=== PATIENT | male | born 1980 | race Caucasian/White ===

== ENCOUNTER 2022-10-25 15:44 | Outpatient (AMB) | payer OTHER, SELFPAY ==
--- NOTE | 2022-10-25 15:45 | MHC.PC.OV ---
Vital Signs 10/25/22 15:46 Height 6 ft 9 in Weight 306 lb BMI 32.8 BP 126/78 Blood Pressure Location Lt brachial Position Sitting Pulse 88 Pulse Source Pulse Oximeter Temp Source Skin Pulse Oximetry (%) 99 Oxygen Delivery Method Room Air Intake Visit Reasons: New Patient/ Right shoulder surgery/Pain Mngmt [employer] Required: No Allergies No Known Allergies Allergy (Verified 10/25/22 15:58) Medication List - Last Reconciled 10/25/22 by MYNOR Jewell cholecalciferol (vitamin D3) 50 mcg PO DAILY metoprolol succinate ER 25 mg PO DAILY omeprazole 40 mg PO BID Tobacco use date assessed: 10/25/22 Dental Screening Dental Screen Date: 10/25/22 Did you have a dental visit in the last 12 months?: Yes Did you have a dental problem in the last 6 months where you did not have access to dental care?: No Was dental information given to patient?: Patient has dentist HPI New Patient/ Right shoulder surgery/Pain Mngmt HPI Details Patient is a 42-year-old male presents today to establish care. Previous PCP Dr. Triplett in [place], last visit 2 years ago. Patient reports that this doctor does not accept his insurance anymore. Medical history significant for GERD-which is stable with omeprazole 40 mg b.i.d.-reports that when he does not take omeprazole he vomits at the night; atrial fibrillation-followed by Cardiology at [facility]-on metoprolol-not on anticoagulation; nicotine dependence-smokes 1 pack per day since age 17-interested in smoking cessation-reports being on nicotine patch and gum with no improvement in the past-interested in bupropion; bilateral shoulder pain - reports being injured at work doing [employer] - worker's comp case - reports history of right shoulder surgery x2 due to rotator cuff-followed by Orthopedics Dr. Gibbs at [facility] - patient is currently in physical therapy for his right shoulder-reports plan for left shoulder surgery once right shoulder improves. Intermittently take [id number] ibuprofen or Tylenol with some improvement in his pain. Reports he does not like medications. He reports normal upper GI study 3 years ago. Patient lives with his daughter. Patient denies shortness of breath or chest pain. [facility] Medical History (Updated 10/25/22 @ 17:31 by MYNOR Jewell) Kidney stones Surgical History (Updated 10/25/22 @ 17:24 by MYNOR Jewell) H/O shoulder surgery History of appendectomy History of esophagogastroduodenoscopy (EGD) Family History Mother Hypertension CHF (congestive heart failure) Father Stroke Social History Housing: House Patient Tobacco Use Status: Current everyday Tobacco user Cigarette Packs Per Day: 1 Years Smoked: 25 yrs service: Yes 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 ) Cognitive needs: No Hearing needs: No Vision needs: No Questionnaire PHQ-9 Over the last 2 weeks, how often have you been bothered by any of the following problems? 1. Little interest or pleasure in doing things: not at all 2. Feeling down, depressed, or hopeless: not at all 3. Trouble falling or staying asleep, or sleeping too much: not at all 4. Feeling tired or having little energy: not at all 5. Poor appetite or overeating: not at all 6. Feeling bad about yourself - or that you are a failure or have let yourself or your family down: not at all 7. Trouble concentrating on things, such as reading the newspaper or watching television: not at all 8. Moving or speaking so slowly that other people could have noticed. Or the opposite - being so fidgety or restless that you have been moving around a lot more than usual: not at all 9. Thoughts that you would be better off or of hurting yourself in some way: not at all Total score: 0 Depression Screening Interpretation: Negative 13707 - PHQ-9 Billing: Yes Source: Developed by Drs. Michael Kamara, Felicia Asif, Jeffrey Nguyen and colleagues, with an educational darion from [employer]. Thrive Questionnaire Date Thrive assessed: 10/25/22 I am a: Patient What is your living situation today?: I have a steady place to live Within the past 12 months, did the food you bought not last and you didn't have the money to get more?: Never true Within the past 12 months, did you worry whether your food would run out before you got money to buy more?: Never true Do you have trouble paying for medicines?: No Do you have trouble getting transportation to medical appointments?: No Do you have trouble paying your heating and electricity bill?: No Do you have trouble with day-to-day activities such as bathing, preparing meals, shopping, managing finances, etc.?: No Are you currently unemployed and looking for a job?: No Are you interested in more education?: No Currently or been in a relationship where the following occur: no concerns reported AUDIT C Alcohol Use Questionnaire (AUDIT-C) 1. How often do you have a drink containing alcohol?: Never 3. How often do you have six or more drinks on one occasion?: Never Total Score: 0 Score Reviewed/Action Taken: No SHANTE-7 AMB Questionnaire SHANTE-7 Date SHANTE - 7 assessed: 10/25/22 Feeling nervous, anxious, or on edge: 0 = Not at all Not being able to stop or control worryin = Not at all Worrying too much about different things: 0 = Not at all Trouble relaxin = Not at all Being so restless that it is hard to sit still: 0 = Not at all Becoming easily annoyed or irritable: 0 = Not at all Feeling afraid as if something awful might happen: 0 = Not at all Total SHANTE-7 score (0-4 normal; 5-9 mild; 10-14 moderate; 15-21 severe): 0 Source: Developed by Drs. Michael Kamara, Felicia Asif, Jeffrey Nguyen and colleagues, with an educational darion from [employer]. SHANTE-7 Assessment Billing SHANTE-7 Assessment Tool: SHANTE-7 Assessment 09855 Review of Systems Const Denies body aches, Denies chills, Denies fever(s) and Denies headache(s) Eyes Denies change in vision ENT Denies dizziness, Denies otalgia, Denies headache(s), Denies nasal discharge, Denies sinus pain and Denies sore throat Card Denies chest pain, Denies edema, Denies lightheadedness and Denies dyspnea Resp Denies chest congestion, Denies hemoptysis and Denies dyspnea GI Denies abdominal pain, Denies constipation, Reports heartburn, Denies diarrhea, Denies nausea and Denies vomiting Denies dysuria Musc Denies myalgias and Reports arthralgias Skin/Breast Denies rash Neuro Denies dizziness and Denies headache(s) Physical exam (Primary Care) Vital Signs: Last Vital Signs Pulse 88 10/25/22 15:46 BP 126/78 10/25/22 15:46 Pulse Ox 99 10/25/22 15:46 Oxygen Delivery Method Room Air 10/25/22 15:46 BMI result Body Mass Index 32.8 Tobacco/Smoking Status: Tobacco use Status Tobacco use date assessed 10/25/22 10/25/22 15:56 Patient Tobacco Use Status Current everyday Tobacco 10/25/22 15:56 PHQ-9: PHQ-9 Score PHQ-9: Total score 0 10/25/22 16:10 Depression Screening Interpretation: Negative Thrive Assessment: Date of Thrive Assessment Date Thrive assessed 10/25/22 10/25/22 15:56 Currently or been in a relationship where the following occur: no concerns reported Const General: cooperative and no acute distress Orientation/consciousness: patient oriented x3 HENMT Head: Yes normocephalic and Yes atraumatic Ears: TM's normal bilaterally Face and sinus: Yes sinuses nontender Mouth: oropharynx normal and moist mucous membranes Throat: Yes posterior oropharynx normal Eyes General: appearance normal, both eyes and all related structures Pupils: Equal, round and reactive pupils present EOM: EOMs intact bilaterally Neck Neck: Yes normal visual inspection, Yes full ROM and Yes no lymphadenopathy Thyroid: Thyroid normal Resp Effort & Inspection: normal respiratory effort and able to speak in complete sentences Auscultation: clear to auscultation bilaterally, no crackles, no rales, no rhonchi and no wheezes Cardio Rate: regular rate Rhythm: regular rhythm Heart sounds: S1 normal heart sound present, S2 normal heart sound present and no murmurs GI Palpation (GI): Soft to palpation, not firm, nontender, no guarding, not rigid and no hepatosplenomegaly Auscultation: normal bowel sounds General: No CVA tenderness Back/Spine/Pelvis Back: No CVA tenderness Skin General skin exam: no rashes or lesions noted Neuro General: patient oriented x3 Cranial nerves: Yes Equal, round and reactive pupils present Gait exam (Neuro): Normal gait present Extrem General: Yes full ROM and No edema Assessment and Plan Assessment & Plan (1) Right shoulder pain: Comment: Rotator cuff injury - worker's comp followed by Dr. Gibbs Code(s): M25.511 - Pain in right shoulder Plan: Status post right shoulder surgery x2 Followed by orthopedic Dr. Gibbs at [facility] Currently in physical therapy (2) Left shoulder pain: Code(s): M25.512 - Pain in left shoulder Plan: Followed by orthopedic Dr. Gibbs at [facility] - patient reports plan for left shoulder surgery (3) Nicotine dependence: Comment: Smoke 1 pack/day since age 17. Code(s): F17.200 - Nicotine dependence, unspecified, uncomplicated Plan: Start bupropion 150 mg daily for 3 days and then increase to 1 tablet 2 times a day for 7 weeks, separate doses by at least 8 hours, last dose no later than 18:00, stop smoking after 5-7 days on treatment. Patient agreed with the plan. Possible adverse reactions reviewed with the patient and when to notify provider (4) Encounter to establish care: Code(s): Z76.89 - Persons encountering health services in other specified circumstances (5) Atrial fibrillation: Code(s): I48.91 - Unspecified atrial fibrillation Plan: Continue to follow-up with cardiology at [facility] On metoprolol 25 mg daily Not on anticoagulation (6) GERD (gastroesophageal reflux disease): Code(s): K21.9 - Gastro-esophageal reflux disease without esophagitis Plan: Continue omeprazole 40 mg b.i.d.-patient reports that he is on omeprazole for over 3 years now Will refer to GI for an evaluation and treatment - possible repeat endoscopy Plan Follow-up in 2 months for PE and labs Orders: Orders Vitamin B12 and Folate Today Z76.89 - Persons encountering health services in other specified circumstances Lipid Panel Today Z76.89 - Persons encountering health services in other specified circumstances TSH reflex Free T4 Today Z76.89 - Persons encountering health services in other specified circumstances Vitamin D 25-OH Total Today Z76.89 - Persons encountering health services in other specified circumstances Comprehensive [place]. Panel Fast Today Z76. - Persons encountering health services in other specified circumstances Complete Blood Count Auto Diff Today Z76. - Persons encountering health services in other specified circumstances Referrals Gastroenterology Referral K21.9 - Gastro-esophageal reflux disease without esophagitis Medications: New bupropion HCl (Wellbutrin SR) 150 mg PO BID 98 tabs 0RF F17.200 - Nicotine dependence, unspecified, uncomplicated Coding Level of Care Code New Pt Level 4 (47863) Diagnoses Right shoulder pain M25.511 Left shoulder pain M25.512 Nicotine dependence F17.200 Encounter to establish care Z76.89 Atrial fibrillation I48.91 GERD (gastroesophageal reflux disease) K21.9 Additional Codes SHANTE-7 Assessment Billing - SHANTE-7 Assessment Tool: SHANTE-7 Assessment 83250 ([id number])
[2022-10-25 15:46] VITALS: BP 126/78; PULSE 88; O2SAT 99; BMI 32.8
== END 2022-10-25 16:26 | disposition home or self-care (01) ==
PROVIDERS: PCP Nurse Practitioner Family; Visit Provider Nurse Practitioner Family
DX: M25.511 Pain in right shoulder (principal); F17.200 Nicotine dependence, unspecified, uncomplicated; I48.91 Unspecified atrial fibrillation; K21.9 Gastro-esophageal reflux disease without esophagitis; M25.512 Pain in left shoulder; Z76.89 Persons encountering health services in other specified circumstances
CPT/HCPCS: 99204

== ENCOUNTER 2022-12-27 14:54 | Outpatient (AMB) | payer OTHER, SELFPAY ==
[2022-12-27 14:55] VITALS: BP 130/88; PULSE 69; O2SAT 98; BMI 33.8
--- NOTE | 2022-12-27 14:55 | A.OFFPC_ITS ---
Vital Signs 12/27/22 14:55 Height 6 ft 9 in Weight 315 lb BMI 33.8 BP 130/88 Blood Pressure Location Lt brachial Position Sitting Pulse 69 Pulse Source Pulse Oximeter Temp Source Skin Pulse Oximetry (%) 98 Oxygen Delivery Method Room Air Intake Visit Reasons: Annual Exam Intake Note: Patient is here today for a physical. Allergies No Known Allergies Allergy (Verified 12/27/22 15:04) Medication List - Last Reconciled 12/27/22 by MYNOR Jewell bupropion HCl (Wellbutrin SR) 150 mg PO BID cholecalciferol (vitamin D3) 50 mcg PO DAILY metoprolol succinate ER 25 mg PO DAILY omeprazole 40 mg PO BID Tobacco use date assessed: 12/27/22 Dental Screening Dental Screen Date: 12/27/22 Did you have a dental visit in the last 12 months?: Yes Did you have a dental problem in the last 6 months where you did not have access to dental care?: No Was dental information given to patient?: Patient has dentist HPI Annual Exam HPI0 Details Patient is a 42-year-old male presents today for physical exam. 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 Gibbs at [facility] -reports plan for left shoulder surgery once right shoulder improves. In addition, patient reports bright red blood per rectum with bowel movement on toilet paper and in the toilet for the past couple months on and off, reports usually when he starts with lower abdominal pain he knows he will have blood in his stool. No diarrhea or constipation, denies hemorrhoids, denies rectal pain, declined rectal exam. Reports tetanus vaccine within 10 years. Up-to-date with eye and dental exams. Patient reports that he did blood work last week at [facility] - and he asked them to fax results to PCP office, no results yet, will request. PFSH Medical History Encounter to establish care Kidney stones Surgical History History of esophagogastroduodenoscopy (EGD) History of appendectomy H/O shoulder surgery Family History Mother Hypertension CHF (congestive heart failure) Father Stroke Social History Housing: House Patient Tobacco Use Status: Current everyday Tobacco user Cigarette Packs Per Day: 1 Years Smoked: 25 yrs service: Yes 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 ) Cognitive needs: No Hearing needs: No Vision needs: No Questionnaire PHQ-9 Over the last 2 weeks, how often have you been bothered by any of the following problems? 1. Little interest or pleasure in doing things: not at all 2. Feeling down, depressed, or hopeless: not at all 3. Trouble falling or staying asleep, or sleeping too much: not at all 4. Feeling tired or having little energy: not at all 5. Poor appetite or overeating: not at all 6. Feeling bad about yourself - or that you are a failure or have let yourself or your family down: not at all 7. Trouble concentrating on things, such as reading the newspaper or watching television: not at all 8. Moving or speaking so slowly that other people could have noticed. Or the opposite - being so fidgety or restless that you have been moving around a lot more than usual: not at all 9. Thoughts that you would be better off or of hurting yourself in some way: not at all Total score: 0 Depression Screening Interpretation: Negative 44811 - PHQ-9 Billing: Yes Source: Developed by Drs. Michael Kamara, Felicia Asif, Jeffrey Nguyen and colleagues, with an educational darion from [employer]. Thrive Questionnaire Date Thrive assessed: 10/25/22 AUDIT C Alcohol Use Questionnaire (AUDIT-C) 1. How often do you have a drink containing alcohol?: Never 2. How many drinks containing alcohol do you have on a typical day when you are drinking?: 1 or 2 (0) 3. How often do you have six or more drinks on one occasion?: Never Total Score: 0 Score Reviewed/Action Taken: No SHANTE-7 AMB Questionnaire SHANTE-7 Date SHANTE - 7 assessed: 10/25/22 Feeling nervous, anxious, or on edge: 0 = Not at all Not being able to stop or control worryin = Not at all Worrying too much about different things: 0 = Not at all Trouble relaxin = Not at all Being so restless that it is hard to sit still: 0 = Not at all Becoming easily annoyed or irritable: 0 = Not at all Feeling afraid as if something awful might happen: 0 = Not at all Total SHANTE-7 score (0-4 normal; 5-9 mild; 10-14 moderate; 15-21 severe): 0 Source: Developed by Drs. Michael Kamara, Felicia Asif, Jeffrey Nguyen and colleagues, with an educational darion from [employer]. SHANTE-7 Assessment Billing SHANTE-7 Assessment Tool: SHANTE-7 Assessment 43508 Review of Systems Const Denies body aches, Denies chills, Denies fever(s) and Denies headache(s) Eyes Denies change in vision ENT Denies dizziness, Denies otalgia, Denies headache(s), Denies nasal discharge, Denies sinus pain and Denies sore throat Card Denies chest pain, Denies edema, Denies lightheadedness and Denies dyspnea Resp Denies chest congestion, Denies hemoptysis and Denies dyspnea GI Denies abdominal pain, Reports hematochezia, Denies constipation, Reports heartburn, Denies diarrhea, Denies nausea and Denies vomiting Denies dysuria Musc Denies myalgias and Reports arthralgias Skin/Breast Denies rash Neuro Denies dizziness and Denies headache(s) Physical exam (Primary Care) Vital Signs: Last Vital Signs Pulse 69 12/27/22 14:55 BP 130/88 12/27/22 14:55 Pulse Ox 98 12/27/22 14:55 Oxygen Delivery Method Room Air 12/27/22 14:55 BMI result Body Mass Index 33.8 Tobacco/Smoking Status: Tobacco use Status Tobacco use date assessed 12/27/22 12/27/22 14:58 Patient Tobacco Use Status Current everyday Tobacco 12/27/22 14:55 PHQ-9: PHQ-9 Score PHQ-9: Total score 0 12/27/22 15:13 Depression Screening Interpretation: Negative Thrive Assessment: Date of Thrive Assessment Date Thrive assessed 10/25/22 12/27/22 14:55 Const General: cooperative and no acute distress Orientation/consciousness: patient oriented x3 HENMT Head: Yes normocephalic and Yes atraumatic Ears: TM's normal bilaterally Face and sinus: Yes sinuses nontender Mouth: oropharynx normal and moist mucous membranes Throat: Yes posterior oropharynx normal Eyes General: appearance normal, both eyes and all related structures Pupils: Equal, round and reactive pupils present EOM: EOMs intact bilaterally Neck Neck: Yes normal visual inspection, Yes full ROM and Yes no lymphadenopathy Thyroid: Thyroid normal Resp Effort & Inspection: normal respiratory effort and able to speak in complete sentences Auscultation: clear to auscultation bilaterally, no crackles, no rales, no rhonchi and no wheezes Cardio Rate: regular rate Rhythm: regular rhythm Heart sounds: S1 normal heart sound present, S2 normal heart sound present and no murmurs GI Other: Declined rectal exam Palpation (GI): Soft to palpation, not firm, nontender, no guarding, not rigid and no hepatosplenomegaly Auscultation: normal bowel sounds General: No CVA tenderness Back/Spine/Pelvis Back: No CVA tenderness Skin General skin exam: no rashes or lesions noted Neuro General: patient oriented x3 Cranial nerves: Yes Equal, round and reactive pupils present Gait exam (Neuro): Normal gait present Extrem General: Yes full ROM and No edema Assessment and Plan Assessment & Plan (1) Right shoulder pain: Comment: Rotator cuff injury - worker's comp followed by Dr. Gibbs Code(s): M25.511 - Pain in right shoulder Plan: Status post right shoulder surgery x2 Followed by orthopedic Dr. Gibbs at [facility] (2) Left shoulder pain: Code(s): M25.512 - Pain in left shoulder Plan: Followed by orthopedic Dr. Gibbs at [facility] - patient reports plan for left shoulder surgery (3) Nicotine dependence: Comment: Smoke 1 pack/day since age 17. Code(s): F17.200 - Nicotine dependence, unspecified, uncomplicated Plan: Continue bupropion 150 mg b.i.d. Start nicotine patch daily - do not smoke when on nicotine patch Patient would like to hold off on comprehensive care clinic referral at this time (4) Atrial fibrillation: Code(s): I48.91 - Unspecified atrial fibrillation Plan: Continue to follow-up with cardiology at [facility] On metoprolol 25 mg daily Not on anticoagulation (5) GERD (gastroesophageal reflux disease): Code(s): K21.9 - Gastro-esophageal reflux disease without esophagitis Plan: Continue omeprazole 40 mg b.i.d.-patient reports that he is on omeprazole for over 3 years now Will refer to GI for an evaluation and treatment - possible repeat endoscopy Avoid GERD trigger foods Do not lay down 2-3 hours after evening meal (6) Blood in stool: Code(s): K92.1 - Melena Plan: See HPI for details Patient declined rectal exam Patient will be seeing GI specialist tomorrow-encouraged to notify them about this issue Will request blood work from [facility] (7) Adult general medical exam: Comment: Tetanus IZ within 10 years. Code(s): Z00.00 - Encounter for general adult medical examination without abnormal findings Plan: Repeat in 1 year (8) Obesity (BMI 30.0-34.9): Code(s): E66.9 - Obesity, unspecified Plan: Healthy food choices and exercise as tolerated Medications: New nicotine 1 patch transdermal DAILY 28 ea 2RF F17.200 - Nicotine dependence, unspecified, uncomplicated Refilled bupropion HCl (Wellbutrin SR) 150 mg PO BID 98 tabs 0RF F17.200 - Nicotine dependence, unspecified, uncomplicated bupropion HCl (Wellbutrin SR) 150 mg PO BID 98 tabs 0RF F17.200 - Nicotine dependence, unspecified, uncomplicated Coding Level of Care Code Est Pt Prev Care 40-64y(57137) Diagnoses Right shoulder pain M25.511 Left shoulder pain M25.512 Nicotine dependence F17.200 Atrial fibrillation I48.91 GERD (gastroesophageal reflux disease) K21.9 Blood in stool K92.1 Adult general medical exam Z00.00 Obesity (BMI 30.0-34.9) E66.9 Additional Codes SHANTE-7 Assessment Billing - SHANTE-7 Assessment Tool: SHANTE-7 Assessment [id number] ([id number])
== END 2022-12-27 15:36 | disposition home or self-care (01) ==
PROVIDERS: PCP Nurse Practitioner Family; Visit Provider Nurse Practitioner Family
DX: Z00.00 Encounter for general adult medical examination without abnormal findings (principal); F17.210 Nicotine dependence, cigarettes, uncomplicated; I48.91 Unspecified atrial fibrillation; K21.9 Gastro-esophageal reflux disease without esophagitis; M25.511 Pain in right shoulder; M25.512 Pain in left shoulder; K92.1 Melena; E66.9 Obesity, unspecified
CPT/HCPCS: 99396

== ENCOUNTER 2022-12-28 12:50 | Outpatient (AMB) | payer OTHER, SELFPAY ==
--- NOTE | 2022-12-28 12:54 | MHC.OFFVIS ---
Intake Vital Signs 12/28/22 12:55 Height 6 ft 9 in Weight 145 lb BMI 15.5 BP 135/79 Blood Pressure Location Rt brachial Position Sitting Pulse 86 Intake Visit Reasons: Gastroesophageal reflux disease (GERD) Intake Note: Patient presents to in office visit today as a new patient for GERD. CC: Pt with c/o GERD for about 5 years and states he takes 40 mg of Omeprazole BID but still get acid reflux sometimes. Patient also reports having abdominal pain at least 3 days a week and rectal bleeding. Allergies No Known Allergies Allergy (Verified 12/28/22 13:00) HPI HPI Comments History of Present Illness Details 42-year-old male AFib no anticoagulation, follows at [facility] reality, referred with acid reflux -omeprazole 40 mg b.i.d. he has breakthrough sx - sometimes sx are bad- reportedly had EGD 2019 that was normal Intermittent rectal bleeding-he notes when he has low abdominal cramping prior to BM he has no known hemorrhoids- blood actually in the stool- He typically has 3 stools a day-normal for No drink- smokes tob- on nicotine patch He then says he had hemorrhoids sometime ago-and used preparation H He has no nausea, hematemesis, fever or chills he has had no weight loss, no headaches, dizziness, chest pain, or shortness [facility] Medical History Encounter to establish care Kidney stones Surgical History History of esophagogastroduodenoscopy (EGD) History of appendectomy H/O shoulder surgery Family History Mother Hypertension CHF (congestive heart failure) Father Stroke Social History Housing: House Patient Tobacco Use Status: Current everyday Tobacco user Cigarette Packs Per Day: 1 Years Smoked: 25 yrs service: Yes 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 ) Cognitive needs: No Hearing needs: No Vision needs: No Review of Systems Const All systems reviewed & are unremarkable except as noted in HPI and below Card Denies chest pain, Denies chest pain at rest, Denies chest pain with activity, Denies diaphoresis, Denies palpitations, Denies dyspnea, Denies dyspnea on exertion and Denies paroxysmal nocturnal dyspnea Resp Denies cough, Denies dyspnea and Denies dyspnea on exertion GI Reports hematochezia, Reports GI cramping, Reports heartburn and Reports nausea Endo Denies palpitations Physical Exam Vital Signs: Last Vital Signs Pulse 86 12/28/22 12:55 BP 135/79 12/28/22 12:55 BMI result Body Mass Index 15.5 Const General: cooperative, healthy appearing, comfortable and no acute distress Orientation/consciousness: patient oriented x3 Limitations: no limitations Eyes Sclerae: sclerae normal Resp Effort & Inspection: normal respiratory effort and able to speak in complete sentences Auscultation: clear to auscultation bilaterally, no rales, no rhonchi and no wheezes Cardio Rate: regular rate Rhythm: regular rhythm Skin General skin exam: no rashes or lesions noted Neuro General: patient oriented x3 Extrem General: Yes full ROM Psych Appearance: well kempt Mental Status: mental status grossly normal Speech and movement: Clear speech present Affect: Labile affect present Thought process: Normal thought process present Thought content: Normal thought content present Results Reviewed Results Reviewed: 12/21- no anemia Assessment & Plan Assessment & Plan (1) GERD (gastroesophageal reflux disease): Comment: Years on PPI Code(s): K21.9 - Gastro-esophageal reflux disease without esophagitis Plan: reflux precutions continue ppi EGD (2) Atrial fibrillation: Comment: pt reports AFIB x 1 - never on anticoags- History unclear Code(s): I48.91 - Unspecified atrial fibrillation Plan: F/u cardiology s scheduled (3) Blood in stool: Comment: no anemia- may be hemorrhoidal needs further eval Code(s): K92.1 - Melena Plan: Avoid straining, try her Crohn hydrocortisone cream per rectum Maintain high-fiber diet colonoscopy Plan EGD/ colonoscopy- anesthesia consult- Dr. Wheeler only, patient requests a male Orders: Orders EGD/[place] Combo - GI Use Only Today Medications: New bisacodyl (Dulcolax (bisacodyl)) Take 4 tablets by mouth at 12:00pm the day before your procedure. 20 mg (4 x 5 mg) PO ONCE 1 day 4 tabs 0RF colonoscopy prep Z12.11 - Encounter for screening for malignant neoplasm of colon polyethylene glycol 3350 (Miralax) Take as directed by mouth the day before your procedure. 238 grams PO ONCE 1 day PRN 238 grams 0RF laxative effect hydrocortisone 2.5% (Proctozone-HC) apply W[place] BID prn 1 appl W[place] BID PRN 30 grams 3RF hemorrhoids Patient Instructions: 42-year-old male referred with persistent acid reflux , intermittent rectal bleeding- EGD and colonoscopy- reflux precutions continue ppi EGD Avoid straining, hydrocortisone cream per rectum Maintain high-fiber diet colonoscopy Coding Level of Care Code New Pt Level 3 (31432) Diagnoses GERD (gastroesophageal reflux disease) K21.9 Atrial fibrillation I48.91 Blood in stool K92.1 Time Spent (min) 35
[2022-12-28 12:55] VITALS: BP 135/79; PULSE 86; BMI 15.5
== END 2022-12-28 15:57 | disposition home or self-care (01) ==
PROVIDERS: PCP Nurse Practitioner Family; Visit Provider Physician Assistant
DX: K21.9 Gastro-esophageal reflux disease without esophagitis (principal); I48.91 Unspecified atrial fibrillation; K92.1 Melena
CPT/HCPCS: 99203

== ENCOUNTER → 2022-12-28 12:50 | Outpatient (BNVA) | payer OTHER, SELFPAY | PROVIDERS: PCP Nurse Practitioner Family; Visit Provider Physician Assistant | DX: K21.9 Gastro-esophageal reflux disease without esophagitis (principal); K92.1 Melena; I48.91 Unspecified atrial fibrillation | CPT/HCPCS: 99202 ==

== ENCOUNTER 2023-06-06 11:35 | Day surgery (SDC) | payer OTHER, SELFPAY ==
[2023-05-31 16:19] VITALS: BMI 32.1
[2023-06-06 11:37] VITALS: BP 133/89; PULSE 93; RESP 18; TEMP 36.9; O2SAT 97
[2023-06-06 11:49] VITALS: BMI 34.4
[2023-06-06] MEDS: Lactated Ringers 1,000 ML 50 ML IVCONT (11:59)
--- NOTE | 2023-06-06 12:29 | MHC.SHP ---
Pre-Procedural Eval Section A - 24 Hr Update-Section A only Date of Service: 06/06/23 Section B - Complete if H&P > 30 days Chief Complaint: GERD, rectal bleeding Relevant Family History (Specify if Yes): No Relevant Social History: Tobacco Use Present Medications: see Short Stay Collaborative assessment Medical History: Significant History (Kidney stones) History of Previous Operations: Relevant previous surgery/procedure and date(s) (History of esophagogastroduodenoscopy (EGD) History of appendectomy H/O shoulder surgery) Allergies: Allergies Allergy/AdvReac Type Severity Reaction Status Date / Time No Known Allergies Allergy Verified 12/28/22 13:00 Review of Systems Sugical H&P ROS: Negative: Constitution, Cardiovascular, Respiratory, Neurological, Psychiatric, Hem-Onc, Allergic/Immunologic, Gastrointestinal, Genitourinary, Musculoskeletal, Integumentary, Endocrine and Eyes/Ears/Nose/Throat Exam Surgical H&P Exam: Normal: HEENT, Normal: Heart, Normal: Lungs, Normal: Extremities, Normal: Abdomen, Normal: Skin and Normal: Neurological Plan Diagnosis/Plan: Unchanged I have reviewed the history and physical and performed a pertinent physical examination on my patient. No changes have occurred unless specified. Time Spent With Patient Time: Total time managing care of this patient today ____ minutes.
--- NOTE | 2023-06-06 12:52 | W.PM.OPN ---
Operative Note Operative Note Date of Service: 06/06/23 Narrative: Operative Information Procedure Description: EGD, Colonoscopy Indication: GERD, rectal bleeding Anesthesia: MAC FLEXIBLE TRANSORAL UPPER GASTROINTESTINAL ENDOSCOPY AND COLONOSCOPY PROCEDURE NOTE UPPER ENDOSCOPY Consent: Indications for the procedure and potential complications of bleeding, perforation, reaction to medications and missed diagnosis were discussed with the patient and informed consent was obtained. Instrument: Olympus variable stiffness pediatric scope 190L Monitoring: Vital signs and clinical assessment, continuous EKG monitoring, Pulse oximetry, Carbon Dioxide monitoring and blood pressure monitoring were done throughout the procedure. Procedure: The patient was placed in the left lateral decubitis position and pre-procedure medications were administered and a bite block was placed. The endoscope was inserted into the mouth and advanced under direct vision to the third part of duodenum. A careful inspection was made as the upper endoscope was withdrawn including a retroflexed examination of the proximal stomach; Findings and interventions are described below. Findings: Larynx:normal Esophagus: GE junction at 45 cm, diaphragm hiatus at 45 cm, bogginess and erythema GEJ, bx taken also from proximal and distal esophagus Stomach: erythema laith around pylorus. Biopsies were obtained. Grade 3 flap valve on retroflexed examination of the cardia with lax LES Duodenum: Mild duodenitis, bx taken Intervention: Biopsies as noted above COLONOSCOPY Instrument: Olympus variable stiffness pediatric scope 190L Colonoscopy Monitoring: Vital signs and clinical assessment, continuous EKG monitoring, Pulse oximetry, Carbon Dioxide monitoring and blood pressure monitoring were done throughout the procedure. Colon withdrawal time was 8 minutes. Procedure: The patient was placed in the left lateral decubitis position and pre-procedure medications were administered. After a digital rectal examination of the ano-rectum, the video colonoscope was inserted into the rectum and advanced through the colon to the cecum/TI. The colonoscope was slowly withdrawn in a retrograde panoramic fashion and the colon mucosa was carefully examined including a retroflexed view of the rectum. Findings and interventions are described below. Procedure Difficulty: easy Findings: Terminal Ileum-normal Cecum:normal Right sided retroflexion- normal Ascending Colon: normal Transverse Colon -normal Descending Colon:normal Sigmoid Colon: mild diverticulosis Rectum: Retroflexion with medium sized inflammed internal hemorrhoids, grade I Anorectum - normal Colon preparation: [place] Bowel Preparation Scale Right colon; 2 Transverse colon: 3 Left colon; 3 (0 = Unprepared colon segment with mucosa not seen due to solid stool that cannot be cleared. 1 = Portion of mucosa of the colon segment seen, but other areas of the colon segment not well seen due to staining, residual stool and/or opaque liquid. 2 = Minor amount of residual staining, small fragments of stool and/or opaque liquid, but mucosa of colon segment seen well. 3 = Entire mucosa of colon segment seen well with no residual staining, small fragments of stool or opaque liquid) Impression and Post Procedure Diagnosis: Endoscopy Findings: gastritis duodenitis esophagitis Colonoscopy Findings: internal hemorrhoids diverticular disease Plan: Await Pathology results Repeat Colonoscopy in 10 years or earlier if clinically indicated High fiber diet leaflet avoid straining at stool, epsom salts and sitz bath, anusol supps or cream check nsaid hx and compliance with PPI Above findings were reviewed with the patient and relevant handouts were provided if indicated.
--- NOTE | 2023-06-06 13:05 | HO.ANESPROP2 ---
HPI - Anesthesia Eval Consult details Narrative: 42-year-old male presenting for upper endoscopy and colonoscopy [facility] Active Problems Active Problems: All Active Problems (Updated 12/28/22 @ 13:49 by Cinda Peoples PA-C) Obesity (BMI 30.0-34.9) (Acute) Adult general medical exam (Acute) Blood in stool (Acute) Left shoulder pain (Acute) Right shoulder pain (Acute) Nicotine dependence (Acute) Atrial fibrillation (Acute) GERD (gastroesophageal reflux disease) (Acute) Past Medical History Medical History Marijuana dependence Kidney stones Encounter to establish care Family History Family History Mother Hypertension CHF (congestive heart failure) Father Stroke Family history of problems with anesthesia: No Surgical History Surgical History History of esophagogastroduodenoscopy (EGD) History of appendectomy H/O shoulder surgery History of Problems with Anesthesia: No Social History Social History Housing: House Are you a primary medicare contact specialist to a significant other at home: No Do you presently have visiting nurse or other home services: No Patient Tobacco Use Status: Current everyday Tobacco user Tobacco use type: Cigarette Cigarette Packs Per Day: 0.5 Cigarettes Per Day: 10.0 Years Smoked: 25 Smoked in Last 30 Days: Yes Use of substances other than those prescribed or required for medical reasons: Yes Substance Use Frequency: Daily Are you DNR?: No Advance Directives: No Advance Directives Information Provided: Yes Advance Directives on File: No Recently lost weight without trying: No Eating poorly because of decreased appetite: No Nutrition Risks: No Nutritional Risk Poor oral hygiene: No service: Yes Current occupational status: employed Cognitive needs: No Hearing needs: No Vision needs: No Meds Allergies Allergy/AdvReac Type Severity Reaction Status Date / Time No Known Allergies Allergy Verified 12/28/22 13:00 Active Medications: Current Medications Lactated Ringer's (Lr) 1,000 mls @ 50 mls/hr IVCONT .Q20H [place] Last Admin: 06/06/23 11:59 Dose: 50 mls/hr Home Medications Medication Instructions Recorded Confirmed Last Taken Type cholecalciferol (vitamin D3) 50 50 mcg PO DAILY 10/25/22 12/27/22 Unknown History mcg (2,000 unit) capsule metoprolol succinate 25 mg 25 mg PO DAILY 10/25/22 12/27/22 06/06/23 History tablet,extended release 24 hr omeprazole 40 mg capsule,delayed 40 mg PO BID 10/25/22 12/27/22 06/06/23 History release Exam Height,Weight and Vital Signs: Height 6 ft 9 in Weight 320 lb 12.8 oz Last Vital Signs Temp 98.4 F 06/06/23 11:37 Pulse 93 06/06/23 11:37 Resp 18 06/06/23 11:37 BP 133/89 06/06/23 11:37 Pulse Ox 97 06/06/23 11:37 O2 Del Method Room Air 06/06/23 11:37 Airway Mallampati Class: II TM Dist: >3cm Neck ROM: Full Loose/Missing/Broken Teeth: No Assessment and Plan Assessment Anesthesia Assessment: Anesthesia Plan Discussed and Chart Reviewed Final Anesthetic Review Family History of Problems with Anesthesia: No History of Problems with Anesthesia: No NPO: Yes ASA Class: II Final Preanesthetic Review: No Changes in Pt Med Stat, Meds/Allgs Chart Reviewed, Consent Obtained/Reviewed and Anes Risks/Benef Reviewed Patient Risk: Low Procedure Risk: Low Anesthetic Plan Anesthetic Plan: MAC: Disposition: Standard PACU
[2023-06-06 13:13] VITALS: BP 116/76; PULSE 70; RESP 18; TEMP 37.7; O2SAT 98
[2023-06-06 13:28] VITALS: BP 115/76; PULSE 74; RESP 16; TEMP 36.2; O2SAT 95
[2023-06-06 13:43] VITALS: BP 114/75; PULSE 76; RESP 16; TEMP 36.2; O2SAT 95
== END 2023-06-06 14:15 | disposition home or self-care (01) ==
PROVIDERS: PCP Nurse Practitioner Family; Visit Provider Internal Medicine Gastroenterology
PROC: (CPT 45378; principal; 2023-06-06 13:40)
DX: K62.5 Hemorrhage of anus and rectum (principal); K57.30 Diverticulosis of large intestine without perforation or abscess without bleeding; K64.0 First degree hemorrhoids; K21.9 Gastro-esophageal reflux disease without esophagitis; K29.50 Unspecified chronic gastritis without bleeding; K29.80 Duodenitis without bleeding; K44.9 Diaphragmatic hernia without obstruction or gangrene; K22.4 Dyskinesia of esophagus
CPT/HCPCS: 45378; 43239; 88305; 88313; 88342; J2704

== ENCOUNTER → 2023-06-06 11:35 | Outpatient (BNV) | payer OTHER, SELFPAY | PROVIDERS: PCP Nurse Practitioner Family; Visit Provider Internal Medicine Gastroenterology | DX: K29.90 Gastroduodenitis, unspecified, without bleeding (principal); K20.90 Esophagitis, unspecified without bleeding; K57.90 Diverticulosis of intestine, part unspecified, without perforation or abscess without bleeding; K64.8 Other hemorrhoids | CPT/HCPCS: 43239; 45378 ==

== ENCOUNTER 2023-06-19 15:09 | Outpatient (AMB) | payer OTHER, SELFPAY ==
--- NOTE | 2023-06-19 15:12 | A.OFFVIS_ITS ---
Intake Vital Signs 06/19/23 15:19 Height 6 ft 9 in Weight 320 lb BMI 34.3 BP 131/83 Blood Pressure Location Lt brachial Position Sitting Pulse 101 H Intake Visit Reasons: s/p egd/colon Wheeler Intake Note: Patient follow up for EGD/Colonoscopy results. Patient denies any GI issues. Authorization Nurse Required: No Accompanied by: Self / Same As Patient Allergies No Known Allergies Allergy (Verified 06/19/23 15:13) HPI HPI Comments History of Present Illness Details 42-year-old male follows up after recent EGD colonoscopy, he tolerated procedures well he has no GI complaints with exception acid reflux he was unable to get medication because the pharmacy was out He arrives extremely rushed, He will begin Carafate for 2 weeks-coming 07/03/23- UBT He has not taking any NSAIDS Reviewed procedure report, pathology as well as recommendations He has not nausea, vomiting, hematemesis, hematochezia fever chills Impression and Post Procedure Diagnosis: Endoscopy Findings: gastritis duodenitis esophagitis Colonoscopy Findings: internal hemorrhoids diverticular disease Plan: Await Pathology results Repeat Colonoscopy in 10 years or earlier if clinically indicated High fiber diet leaflet avoid straining at stool, epsom salts and sitz bath, anusol supps or cream check nsaid hx and compliance with PPI PFSH Medical History Marijuana dependence Kidney stones Encounter to establish care Surgical History History of esophagogastroduodenoscopy (EGD) History of appendectomy H/O shoulder surgery Family History Mother Hypertension CHF (congestive heart failure) Father Stroke Social History Housing: House Are you a primary nonfarm animal caretaker to a significant other at home: No Do you presently have visiting nurse or other home services: No Patient Tobacco Use Status: Current everyday Tobacco user Tobacco use type: Cigarette Cigarette Packs Per Day: 0.5 Cigarettes Per Day: 10.0 Years Smoked: 25 service: Yes 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 ) Cognitive needs: No Hearing needs: No Vision needs: No Review of Systems Const All systems reviewed & are unremarkable except as noted in HPI and below Card Denies chest pain, Denies chest pain with activity, Denies rapid heart rate and Denies dyspnea Resp Denies dyspnea GI Denies abdominal pain and Reports heartburn Psych Reports anxiety Physical Exam Vital Signs: Last Vital Signs Pulse 101 H 06/19/23 15:19 BP 131/83 06/19/23 15:19 BMI result Body Mass Index 34.3 Const General: comfortable, no acute distress and anxious Orientation/consciousness: patient oriented x3 Limitations: no limitations Eyes Sclerae: sclerae normal Resp Effort & Inspection: normal respiratory effort and able to speak in complete sentences Cardio Rate: regular rate Rhythm: regular rhythm (Jul) Neuro General: patient oriented x3 Psych Speech and movement: Clear speech present Affect: Anxious affect present Attitude: cooperative Thought process: Normal thought process present Thought content: Normal thought content present Results Reviewed Results Reviewed: Name: Davy Loja Age/Sex: 42/M Attending: Anne Marie Wheeler MD : 1980 Submitted by: Anne Marie Wheeler MD Copies to: BriannaAme MR #: [id number] Status: [facility] Collected: 06/06/23 Location: [facility] Received: 06/06/23 Diagnosis A. Duodenum, biopsy: Duodenal mucosa within normal limits. B. Stomach, biopsy: Antral-type mucosa with moderate chronic inactive inflammation; no Helicobacter organisms seen. C. GE junction, biopsy: - Cardiac-type mucosa with moderate chronic active inflammation; no intestinal metaplasia seen. - Active esophagitis (rare eosinophils and neutrophils). D. Esophagus, distal, biopsy: Squamous epithelium within normal limits; no inflammation seen. E. Esophagus, proximal, biopsy: Squamous epithelium within normal limits; no inflammation seen. Clinical History Pre-Op Dx: GERD, rectal bleeding Post-Op Dx: Upper: gastritis, duodenitis; Lower: diverticulosis, hemorrhoids Microscopic Description A-E. Microscopic sections examined. No metaplastic changes are seen, supported by AB/PAS stains (A- C); no Helicobacter organisms are seen, supported by H. pylori immunostain (B). Material Received A. Duodenum bx's B. Stomach bx's C. GE junction bx's D. Distal esophagus bx's E. Proximal esophagus bx's Gross Description Received in 5 parts. Part A: Received in formalin labeled ?duodenum bx's (sic) is a 0.3 cm julian-pink rectangular tissue fragment, submitted in toto in a cassette labeled A. Part B: Received in formalin labeled ?stomach bx's? are 2 julian-pink irregular tissue fragments each measuring 0.25 cm, submitted in toto in a cassette labeled B. Patient: Davy Loja Age/Sex: 42/M MR#: [id number] Page 1 of 2 Assessment & Plan Assessment & Plan (1) Obesity (BMI 30.0-34.9): Code(s): E66.9 - Obesity, unspecified (2) GERD (gastroesophageal reflux disease): Comment: Years on PPI Code(s): K21.9 - Gastro-esophageal reflux disease without esophagitis Plan: Begin Carafate will return for H pylori breath test Plan 07/03/23- HP UBT- carafate until then Diverticulosis/diverticulitis HFD Orders: Orders H Pylori Breath Test 2 Weeks A04.8 - Other specified bacterial intestinal infections Patient Instructions: 07/03/23- HP UBT- carafate until then-reviewed NPO for 1 hour, no PPI or antibiotics for 2 weeks prior to testing Diverticulosis/diverticulitis ER protocol reviewed verbalizes that he understands HFD Follow-up with PCP as scheduled Encouraged to call with questions or concerns Coding Level of Care Code Est Pt Level 3 (64843) Diagnoses Obesity (BMI 30.0-34.9) E66.9 GERD (gastroesophageal reflux disease) K21.9 Time Spent (min) 25
[2023-06-19 15:19] VITALS: BP 131/83; PULSE 101; BMI 34.3
== END 2023-06-19 15:26 | disposition home or self-care (01) ==
PROVIDERS: PCP Nurse Practitioner Family; Visit Provider Physician Assistant
DX: E66.9 Obesity, unspecified (principal); K21.9 Gastro-esophageal reflux disease without esophagitis
CPT/HCPCS: 99213

== ENCOUNTER → 2023-06-19 15:09 | Outpatient (BNVA) | payer OTHER, SELFPAY | PROVIDERS: PCP Nurse Practitioner Family; Visit Provider Physician Assistant | DX: K21.9 Gastro-esophageal reflux disease without esophagitis (principal); E66.9 Obesity, unspecified; Z68.34 Body mass index [BMI] 34.0-34.9, adult | CPT/HCPCS: 99212 ==

== ENCOUNTER 2023-10-18 12:21 | Outpatient (AMB) | payer OTHER, SELFPAY ==
--- NOTE | 2023-10-18 12:50 | AM.OFFWIN_ITS ---
Intake Vital Signs 10/18/23 12:51 Height 6 ft 9 in Weight 335 lb BMI 35.9 BP 128/84 Blood Pressure Location Lt radial Position Standing Pulse 89 Pulse Source Pulse Oximeter Temp 98.3 F Temp Source Oral Pulse Oximetry (%) 96 Oxygen Delivery Method Room Air Intake Visit Reasons: EP lower back pain Intake Note: pt here c/o lower back pain. Started a week and a half ago. Playing with son Patient Tobacco Use Status: Current everyday Tobacco user Allergies No Known Allergies Allergy (Verified 10/18/23 12:53) HPI HPI Comments History of Present Illness Details 43 y/o male patient who presents to the walk in clinic with c/o low back pain x 1 week. Pt reports that he was playing with his Son, when he strained his lower back. Denies urinary or bowel symptoms. [facility] Medical History Marijuana dependence Kidney stones Encounter to establish care Surgical History History of esophagogastroduodenoscopy (EGD) History of appendectomy H/O shoulder surgery Family History Mother Hypertension CHF (congestive heart failure) Father Stroke Social History Housing: House Are you a primary ocular care aide to a significant other at home: No Do you presently have visiting nurse or other home services: No Patient Tobacco Use Status: Current everyday Tobacco user Tobacco use type: Cigarette Cigarette Packs Per Day: 0.5 Cigarettes Per Day: 10.0 Years Smoked: 25 service: Yes 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 ) Cognitive needs: No Hearing needs: No Vision needs: No Review of Systems Const All systems reviewed & are unremarkable except as noted in HPI and below Physical Exam Vital Signs: Last Vital Signs Temp 98.3 F 10/18/23 12:51 Pulse 89 10/18/23 12:51 BP 128/84 10/18/23 12:51 Pulse Ox 96 10/18/23 12:51 Oxygen Delivery Method Room Air 10/18/23 12:51 BMI result Body Mass Index 35.9 Const General: no acute distress; No comfortable Nutritional Appearance: obese Orientation/consciousness: patient oriented x3 Back/Spine/Pelvis Back: back tenderness Thoracic/Lumbar Spine: thoraco-lumbar spasm, thoracic spinal tenderness and lumbar spinal tenderness Sacrum: tenderness midline Coccyx: Coccyx tenderness present on direct palpation Neuro General: patient oriented x3, gait normal and moves all extremities Psych Speech and movement: Normal speech and movement present Assessment & Plan Assessment & Plan (1) Acute low back pain: Code(s): M54.50 - Low back pain, unspecified Qualifiers: Back pain laterality: midline Sciatica presence: without sciatica Qualified Code(s): M54.50 - Low back pain, unspecified Plan: Rest Ice/Hot Alternate Ibuprofen with Acetaminophen for pain Medications: New acetaminophen 1,000 mg (2 x 500 mg) PO Q6H PRN 30 caps 0RF pain (scale score 7- 10) M54.50 - Low back pain, unspecified cyclobenzaprine 10 mg PO BEDTIME 10 tabs 0RF M54.50 - Low back pain, unspecified ibuprofen 800 mg PO Q8H 60 tabs 0RF M54.50 - Low back pain, unspecified lidocaine 5% leave on most painful area for up to 12 hrs 1 patch topical DAILY 15 ea 0RF M54.50 - Low back pain, unspecified Coding Level of Care Code Est Pt Level 3 (82813) Diagnoses Acute midline low back pain without sciatica M54.50 Back pain laterality: midline Sciatica presence: without sciatica Time Spent (min) 15
[2023-10-18 12:51] VITALS: BP 128/84; PULSE 89; TEMP 36.8; O2SAT 96; BMI 35.9
== END 2023-10-18 13:11 | disposition home or self-care (01) ==
PROVIDERS: PCP Nurse Practitioner Family; Visit Provider Nurse Practitioner Family
DX: M54.50 Low back pain, unspecified (principal)
CPT/HCPCS: 99213

== ENCOUNTER 2023-11-17 12:19 | Outpatient (AMB) | payer OTHER, SELFPAY ==
--- NOTE | 2023-11-17 12:29 | A.OFFPC_ITS ---
Vital Signs 11/17/23 12:34 Height 6 ft 8 in Weight 333 lb BMI 36.6 BP 130/80 Blood Pressure Location Lt brachial Position Sitting Respiration 20 Pulse 90 Pulse Source Pulse Oximeter Temp 98.0 F Temp Source Oral Pulse Oximetry (%) 96 Oxygen Delivery Method Room Air Intake Visit Reasons: Xfer care Ame/sleep study Intake Note: follow up from rotator cuff surgery pt states DR. coates pt stopped breathing during surgery provider request sleep study pt also has hx of heart problems as well. Allergies No Known Allergies Allergy (Verified 11/17/23 12:57) Medication List - Last Reconciled 11/17/23 by Nayan Ugalde CNP acetaminophen 1,000 mg (2 x 500 mg) PO Q6H PRN cholecalciferol (vitamin D3) 50 mcg PO DAILY cyclobenzaprine 10 mg PO BEDTIME ibuprofen 800 mg PO Q8H lidocaine 5% 1 patch topical DAILY metoprolol succinate ER 25 mg PO DAILY Tobacco use date assessed: 11/17/23 Dental Screening Dental Screen Date: 11/17/23 Did you have a dental visit in the last 12 months?: Yes Did you have a dental problem in the last 6 months where you did not have access to dental care?: Yes Was dental information given to patient?: Patient has dentist HPI HPI Comments History of Present Illness Details Transfer of care Prior PCP:? [facility], Ame Reed NP Last office visit/CPE: 12/2022 Acute issue(s): A-fib -He is on metoprolol succinate 25mg alie y Vitamin D deficiency -He is on vitamin D3 50 mcg daily Snoring -He has never been evaluated and never u sed CPAP Insomnia -He reports poor night sleep a few years . He sleeps an average of 3 hours. Anxiety -He notes that he gets anxious and worry about 4 days a week since he injured his right shoulder and stopped working a year and half ago. 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 He worries about about what will happen to his family if he cannot provide and about starting a new career. He reports lack of motivation and low energy which he attributes to poor sleep. He denies depressive symptoms. He denies SI/HI. He notes that he has never been diagnosed or treated for anxiety or depression. 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 He does not want to take psychotropic medication what is willing to explore psychotherapy. He takes cyclobenzaprine, ibuprofen, acetaminophen, and uses lidocaine patch as needed for low back pain He admits to making healthy dietary changes and walking with his dog daily He is followed by Cardiology at [facility] but has not followed up in about 2 years PMHx: AFib, GERD, bilateral shoulder pain, obesity, low back pain SurgHx: Appendectomy, right shoulder surgery x 2 r/t rotator cuff issues FHx: Mom: CHF, HTN, sleep apnea. Dad: CVA SocHx: He smokes 5-6 cigarette daily from 2 packs daily; he has been cutting down to quit. He does not drink alcohol. He smokes 5-7 g of cannabis daily PFSH Medical History Marijuana dependence Kidney stones Encounter to establish care Surgical History History of esophagogastroduodenoscopy (EGD) History of appendectomy H/O shoulder surgery Family History Mother Hypertension CHF (congestive heart failure) Father Stroke Social History (Updated 11/17/23 @ 13:24 by Stacey Lui) Housing: House Are you a primary career information specialist to a significant other at home: No Do you presently have visiting nurse or other home services: No Patient Tobacco Use Status: Current everyday Tobacco user Tobacco use type: Cigarette Cigarette Packs Per Day: 0.5 Cigarettes Per Day: 10.0 Years Smoked: 25 e-Cigarette/Vaping Use: Never Used Substance Use Type: Marijuana service: Yes 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 ) Cognitive needs: No Hearing needs: No Vision needs: No Questionnaire PHQ-9 Over the last 2 weeks, how often have you been bothered by any of the following problems? 1. Little interest or pleasure in doing things: nearly every day 2. Feeling down, depressed, or hopeless: not at all 3. Trouble falling or staying asleep, or sleeping too much: nearly every day 4. Feeling tired or having little energy: nearly every day 5. Poor appetite or overeating: not at all 6. Feeling bad about yourself - or that you are a failure or have let yourself or your family down: not at all 7. Trouble concentrating on things, such as reading the newspaper or watching television: not at all 8. Moving or speaking so slowly that other people could have noticed. Or the opposite - being so fidgety or restless that you have been moving around a lot more than usual: not at all 9. Thoughts that you would be better off or of hurting yourself in some way: not at all Total score: 9 Depression Screening Interpretation: Positive Depression Screening Done: Yes 95401 - PHQ-9 Billing: Yes Source: Developed by Drs. Michael Kamara, Felicia Asif, Jeffrey Nguyen and colleagues, with an educational darion from [employer]. Thrive Questionnaire Date Thrive assessed: 11/17/23 I am a: Patient What is your living situation today?: I have a steady place to live Within the past 12 months, did the food you bought not last and you didn't have the money to get more?: Never true Within the past 12 months, did you worry whether your food would run out before you got money to buy more?: Never true Do you have trouble paying for medicines?: No Do you have trouble getting transportation to medical appointments?: No Do you have trouble paying your heating and electricity bill?: No Do you have trouble taking care of your child, family member or friend?: No Do you have trouble with day-to-day activities such as bathing, preparing meals, shopping, managing finances, etc.?: No Are you currently unemployed and looking for a job?: No Are you interested in more education?: No Please select the resources that you would like help with: None Currently or been in a relationship where the following occur: No concerns reported THRIVE Score: 0 AUDIT C Alcohol Use Questionnaire (AUDIT-C) 1. How often do you have a drink containing alcohol?: Never 3. How often do you have six or more drinks on one occasion?: Never Total Score: 0 Score Reviewed/Action Taken: Yes SHANTE-7 AMB Questionnaire SHANTE-7 Date SHANTE - 7 assessed: 11/17/23 Feeling nervous, anxious, or on edge: 1 = Several days Not being able to stop or control worryin = Nearly every day Worrying too much about different things: 3 = Nearly every day Trouble relaxin = More than half the days Being so restless that it is hard to sit still: 2 = More than half the days Becoming easily annoyed or irritable: 3 = Nearly every day Feeling afraid as if something awful might happen: 2 = More than half the days Total SHANTE-7 score (0-4 normal; 5-9 mild; 10-14 moderate; 15-21 severe): 16 Source: Developed by Drs. Michael Kamara, Felicia Asif, Jeffrey Nguyen and colleagues, with an educational darion from [employer]. SHANTE-7 Assessment Billing SHANTE-7 Assessment Tool: SHANTE-7 Assessment 92645 Review of Systems Const Details: Const Denies chills, Denies fatigue, Denies fever(s), Denies headache(s) and Denies weakness ENT Denies dizziness and Denies headache(s) Card Denies chest pain, Denies lightheadedness, Denies dyspnea and Denies other (Palpitations) Resp Denies cough, Denies dyspnea, Denies wheezing and Denies other ( shortness of breath) GI Denies abdominal pain, Denies melena, Denies hematochezia, Denies change in bowel habits, Denies dyspepsia and Denies nausea Denies hematuria and Denies dysuria Musc Denies abnormal gait, Denies myalgias, Denies arthralgias, Denies numbness and Denies tingling Skin/Breast Denies rash, Denies unusual bruising and Denies wounds Neuro Denies abnormal gait, Denies dizziness, Denies headache(s), Denies memory loss, Denies numbness, Denies Sensory deficit (Neuro), Denies tingling and Denies weakness Psych Reports anxiety, Denies depression, Denies memory loss Endo Denies cold intolerance, Denies fatigue, Denies heat intolerance, Denies polydipsia and Denies polyuria Aller/Immun Denies wheezing Physical exam (Primary Care) Vital Signs: Last Vital Signs Temp 98.0 F 11/17/23 12:34 Pulse 90 11/17/23 12:34 Resp 20 11/17/23 12:34 BP 130/80 11/17/23 12:34 Pulse Ox 96 11/17/23 12:34 Oxygen Delivery Method Room Air 08/02/24 12:34 BMI result Body Mass Index 36.6 Tobacco/Smoking Status: Tobacco use Status Tobacco use date assessed 11/17/23 11/17/23 12:38 Patient Tobacco Use Status Current everyday Tobacco 11/17/23 12:38 Tobacco use type Cigarette 11/17/23 12:38 e-Cigarette/Vaping Use Never Used 11/17/23 12:38 Depression Screening Interpretation: Positive Thrive Assessment: Date of Thrive Assessment Date Thrive assessed 10/25/22 11/17/23 12:38 Currently or been in a relationship where the following occur: No concerns reported Const Other: General: no acute distress and well developed Nutritional Appearance: well nourished Orientation/consciousness: patient oriented x3 HENMT Head: Yes normocephalic and Yes atraumatic Eyes General: appearance normal, both eyes and all related structures Pupils: Equal, round and reactive pupils present EOM: EOMs intact bilaterally Resp Effort & Inspection: normal respiratory effort Auscultation: clear to auscultation bilaterally Cardio Rate: regular rate Rhythm: regular rhythm Heart sounds: S1 normal heart sound present, S2 normal heart sound present, no gallops, no murmurs and no rubs GI Palpation (GI): No Abdominal aortic bruit present, Soft to palpation, nontender, No hepatosplenomegaly present and No Rebound tenderness present Auscultation: normal bowel sounds General: Yes no CVA tenderness Back/Spine/Pelvis Back: no CVA tenderness Cervical Spine: cervical ROM normal and No Cervical spine tenderness Thoracic/Lumbar Spine: thoraco-lumbar ROM normal, No pain with thoraco-lumbar ROM, No thoracic spinal tenderness and No lumbar spinal tenderness Extrem General: Yes normal to inspection, No edema and No calf tenderness Skin General: warm and dry. Normal skin color. Normal skin turgor Neuro General: patient oriented x3, gait normal and no focal neuro deficit Cranial nerves: Yes Equal, round and reactive pupils present Cognition (Neuro): normal cognition Gait exam (Neuro): Normal gait present Sensory Exam: No Sensory deficit (Neuro) Psych Appearance: grossly normal Affect: normal affect Attitude: cooperative Thought process: Normal thought process present Assessment and Plan Assessment & Plan (1) Insomnia: Code(s): G47.00 - Insomnia, unspecified Plan: Poor night sleep a few years. He sleeps an average of 3 hours Likely sleep apnea Instructed on sleep hygiene Routine exercise encouraged Referred to sleep medicine for sleep study Follow-up with symptoms or concerns Verbalized understanding and agreed with the plan (2) Snoring: Code(s): R06.83 - Snoring Plan: As above (3) Anxiety: Code(s): F41.9 - Anxiety disorder, unspecified Plan: Anxiety and worry 4 days a week for the past year and half following an employment due to right shoulder injury while working. He worries about not being able to provide for his family. 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 SHANTE-7 and PHQ-9 scores revealed severe anxiety and mild depression respectively He met with the community health worker who will refer him to a therapist Routine exercise encouraged Follow-up in 1 month or sooner with worsening or new symptoms Verbalized understanding and agreed with treatment plan (4) Atrial fibrillation: Code(s): I48.91 - Unspecified atrial fibrillation Plan: Heart regular rate and rhythm On metoprolol 25 mg daily Followed by Cardiology at [facility] but has not followed up in about 2 years Continue current treatment regimen Encouraged to call and make a follow-up appointment with his conference assistant Return with symptoms or concerns Verbalized understanding and agreed with the plan (5) GERD (gastroesophageal reflux disease): Comment: Years on PPI Code(s): K21.9 - Gastro-esophageal reflux disease without esophagitis Plan: Resolved (6) Smoking trying to quit: Code(s): Z72.0 - Tobacco use Plan: He smokes 5-6 cigarette daily from 2 packs daily; he has been cutting down to quit Instructed on the health risks and complications of cigarette smoking and encouraged to quit He may contact his PCP if he needs medication treatment for smoking cessation He verbalized understanding and agreed with the plan (7) Marijuana use: Code(s): F12.90 - Cannabis use, unspecified, uncomplicated Plan: He smokes 5-7 g of cannabis daily Instructed on the health risks and complications of cannabis encouraged to cut down or avoid smoking He notes that he is not willing to cut down or stopped smoking cannabis (8) Obesity (BMI 30-39.9): Code(s): E66.9 - Obesity, unspecified Plan: He currently weighs 333 lb, BMI is 36.6 Healthy diet and routine exercise encouraged Referred to [facility] dietitian (9) Vitamin D deficiency: Code(s): E55.9 - Vitamin D deficiency, unspecified Plan: Notes that his last vitamin-D level was 24 Will check vitamin-D level and make changes as needed (10) Laboratory tests ordered as part of a complete physical exam (CPE): Code(s): Z00.00 - Encounter for general adult medical examination without abnormal findings Plan: Fasting labs ordered in preparation of a complete physical exam. Advised to fast for at least 10 hours before getting labs drawn. May drink water Verbalized understanding and agreed with treatment plan. Orders: Orders Comprehensive [place]. Panel Fast Today Z00.00 - Encounter for general adult medical examination without abnormal findings PSA, Ultra Sensitive Today Z00.00 - Encounter for general adult medical examination without abnormal findings Complete Blood Count Auto Diff Today Z00.00 - Encounter for general adult medical examination without abnormal findings Lipid Panel Today Z00.00 - Encounter for general adult medical examination without abnormal findings TSH reflex Free T4 Today Z00.00 - Encounter for general adult medical examination without abnormal findings UA CC w/rflx Micro + Cult Today Z00.00 - Encounter for general adult medical examination without abnormal findings Microalbumin, Random (w Creat) Today Z00.00 - Encounter for general adult medical examination without abnormal findings Vitamin D 25-OH Total Today E55.9 - Vitamin D deficiency, unspecified Referrals Sleep Medicine Referral G47.00 - Insomnia, unspecified, R06.83 - Snoring Nutrition/Dietitian Referral E66.9 - Obesity, unspecified Coding Level of Care Code Est Pt Level 4 (91249) Complex EM visit Add On G2211 Diagnoses Insomnia G47.00 Snoring R06.83 Anxiety F41.9 Atrial fibrillation I48.91 GERD (gastroesophageal reflux disease) K21.9 Smoking trying to quit Z72.0 Marijuana use F12.90 Obesity (BMI 30-39.9) E66.9 Vitamin D deficiency E55.9 Laboratory tests ordered as part of a complete physical exam (CPE) Z00.00 Additional Codes SHANTE-7 Assessment Billing - SHANTE-7 Assessment Tool: SHANTE-7 Assessment 99646 ([id number])
[2023-11-17 12:34] VITALS: BP 130/80; PULSE 90; RESP 20; TEMP 36.7; O2SAT 96; BMI 36.6
== END 2023-11-17 13:20 | disposition home or self-care (01) ==
PROVIDERS: Visit Provider Nurse Practitioner Family
DX: G47.00 Insomnia, unspecified (principal); I48.91 Unspecified atrial fibrillation; R06.83 Snoring; F41.9 Anxiety disorder, unspecified; K21.9 Gastro-esophageal reflux disease without esophagitis; Z72.0 Tobacco use; F12.90 Cannabis use, unspecified, uncomplicated; E66.9 Obesity, unspecified; E55.9 Vitamin D deficiency, unspecified; F17.210 Nicotine dependence, cigarettes, uncomplicated
CPT/HCPCS: 99214; G2211

== ENCOUNTER 2023-12-25 14:16 | Outpatient (REF) | payer OTHER, SELFPAY ==
[2023-12-25 18:01] LABS: Appearance Urine Turbid; Color Urine Dark Yellow; Glucose Urine UA Negative (Negative); Leukocyte Esterase Urine Negative (Negative); Nitrite Urine Negative (Negative); PH 5.5 (5.0-9.0); Specific Gravity - Urine >= 1.030 (1.005-1.025); Urine Blood Negative (Negative); Urine Ketones Trace mg/dL (Negative); Urine Protein Trace mg/dL (Neg-Trace)
[2023-12-25 18:15] LABS: Microalbum/Creatinine Ratio Ur 5.8 ug/mg cr (<30)
[2023-12-25 22:44] LABS: MANUAL DIFF FLAG NO
[2023-12-25 22:47] LABS: Mean Corpuscular Volume 95.3 fL (80.0-98.0); PLT CLUMP 1; SCAN SMEAR FLAG 1
[2023-12-25 22:49] LABS: Basophils Percent Auto 0.5 % (0-2); Eosinophils Absolute Auto 0.2 X10*3/uL (0.0-0.4); Eosinophils Percent Auto 2.3 % (0-4); Hematocrit 48.5 % (42.0-52.0); Hemoglobin 15.7 g/dl (14.0-18.0); Imm Gran Abs Auto 0.03 X10*3/uL (0.00-0.03); Imm Gran Pct Auto 0.4 % (0.0-0.4); Lymphocytes Absolute Auto 2.4 X10*3/uL (1.2-4.9); Lymphocytes Percent Auto 32.1 % (20-40); Mean Corpuscular HGB Conc 32.4 g/dl (31.0-36.0); Mean Corpuscular Hemoglobin 30.8 pg (27.0-33.0); Mean Platelet Volume 11.8 fL (9.4-12.4); Monocytes Absolute Auto 0.5 X10*3/uL (0.1-1.2); Neutrophils Absolute Auto 4.4 x10*3/uL (2.0-8.3); Neutrophils Percent Auto 58.7 % (45-73); Red Blood Count 5.09 X10*6/uL (4.60-5.80); Red Cell Distribution Width 13.4 % (11.0-16.0)
[2023-12-25 23:06] LABS: Platelet Count 233 X10*3/uL (160-400); White Blood Count 7.5 X10*3/uL (4.8-10.8)
[2023-12-25 23:08] LABS: Alanine Aminotransferase 31 U/L (0-40); Albumin Level 4.2 g/dL (3.5-5.0); Alkaline Phosphatase 70 U/L (39-117); Anion Gap 12 (12-20); Aspartate Amino Transferase 22 U/L (5-37); Bilirubin Total 0.3 mg/dL (0.0-1.0); Blood Urea Nitrogen 12 mg/dL (9-16); Calcium 9.1 mg/dL (8.4-10.2); Carbon Dioxide 23 mmol/L (22-29); Chloride 109 mmol/L (96-108); Cholesterol 156 mg/dL (<200); Estimated Glomerular Filt Rate > 60; Glucose Fasting 154 mg/dL (60-99); HDL Cholesterol 32 mg/dL (>40); LDL Cholesterol Calculated 106 mg/dL (<100); Potassium 3.5 mmol/L (3.3-5.1); Sodium 140 mmol/L (135-145); Total Protein 6.9 g/dL (6.5-8.0); Triglycerides 93 mg/dL (<150)
[2023-12-25 23:24] LABS: TSH reflex Free T4 1.13 uIU/mL (0.32-4.0); Vitamin D 25-OH Total 42.6 ng/mL (>30)
[2024-01-02 19:14] LABS: PSA, Ultra Sensitive 0.99 ng/mL
== END 2023-12-25 14:17 | disposition home or self-care (01) ==
LOC: HO.WFDLDS 14:16
PROVIDERS: Visit Provider Nurse Practitioner Family
DX: Z00.00 Encounter for general adult medical examination without abnormal findings (principal); E55.9 Vitamin D deficiency, unspecified
CPT/HCPCS: 36415; 80053; 80061; 81003; 82043; 82306; 82570; 84153; 84443; 85025

== ENCOUNTER 2024-01-04 10:03 | Outpatient (AMB) | payer OTHER, SELFPAY ==
--- NOTE | 2024-01-04 10:06 | MHC.PC.OV ---
Vital Signs 01/04/24 10:12 Height 6 ft 9 in Weight 329 lb 8 oz BMI 35.3 BP 134/82 Blood Pressure Location Rt brachial Position Sitting Respiration 16 Pulse 84 Pulse Source Pulse Oximeter Temp 97.5 F Temp Source Oral Pulse Oximetry (%) 96 Oxygen Delivery Method Room Air Intake Visit Reasons: cpe and fu lab Intake Note: patient here for CPE and labs. Legal Transcriptionist Required: No Allergies No Known Allergies Allergy (Verified 01/04/24 10:31) Medication List - Last Reconciled 01/04/24 by Nayan Ugalde CNP acetaminophen 1,000 mg (2 x 500 mg) PO Q6H PRN cholecalciferol (vitamin D3) 50 mcg PO DAILY cyclobenzaprine 10 mg PO BEDTIME ibuprofen 800 mg PO Q8H lidocaine 5% 1 patch topical DAILY metoprolol succinate ER 25 mg PO DAILY Tobacco use date assessed: 01/04/24 Dental Screening Dental Screen Date: 01/04/24 Did you have a dental visit in the last 12 months?: Yes Did you have a dental problem in the last 6 months where you did not have access to dental care?: No Was dental information given to patient?: Patient has dentist HPI HPI Comments History of Present Illness Details 43-year-old male presents for an extended physical exam He admits to taking his medications as prescribed without adverse reactions He notes that he has been eating well. He notes that his work requires significant amount of lifting and walking. He resumed work 3 weeks ago. Sleep is still an issues; he sleeps and average of 3 hours nightly and has not been able to maintain sleep He notes that his anxiety and depressive symptoms have significantly improved since he resumed work He reports chronic right-sided low back pain. His current symptoms started 2 days ago. No tingling, numbness, or loss of sensation. He is on ibuprofen and lidocaine which have been ineffective. He is followed by orthopedics at [facility] for chronic shoulder pain He notes that he gets an eye exam annually at [facility] [place]; he will sign a release for his PCP to obtain records He does not recall is last tetanus vaccine [facility] Medical History Marijuana dependence Kidney stones Encounter to establish care Surgical History History of esophagogastroduodenoscopy (EGD) History of appendectomy H/O shoulder surgery Family History Mother Hypertension CHF (congestive heart failure) Father Stroke Social History (Updated 11/17/23 @ 13:24 by Stacey Lui MA) Housing: House Are you a primary human services care specialist to a significant other at home: No Do you presently have visiting nurse or other home services: No Patient Tobacco Use Status: Current everyday Tobacco user Tobacco use type: Cigarette Cigarette Packs Per Day: 0.5 Cigarettes Per Day: 10.0 Years Smoked: 25 Packs Per Year: 13 Packs per year/per ci.50 e-Cigarette/Vaping Use: Never Used Substance Use Type: Marijuana service: Yes 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 ) Cognitive needs: No Hearing needs: No Vision needs: No Questionnaire PHQ-9 Over the last 2 weeks, how often have you been bothered by any of the following problems? 1. Little interest or pleasure in doing things: not at all 2. Feeling down, depressed, or hopeless: not at all 3. Trouble falling or staying asleep, or sleeping too much: not at all 4. Feeling tired or having little energy: not at all 5. Poor appetite or overeating: not at all 6. Feeling bad about yourself - or that you are a failure or have let yourself or your family down: not at all 7. Trouble concentrating on things, such as reading the newspaper or watching television: not at all 8. Moving or speaking so slowly that other people could have noticed. Or the opposite - being so fidgety or restless that you have been moving around a lot more than usual: not at all 9. Thoughts that you would be better off or of hurting yourself in some way: not at all Total score: 0 Depression Screening Interpretation: Negative Depression Screening Done: Yes 35374 - PHQ-9 Billing: Yes Source: Developed by Drs. Michael Kamara, Felicia Asif, Jeffrey Nguyen and colleagues, with an educational darion from [employer]. Thrive Questionnaire Date Thrive assessed: 01/04/24 I am a: Patient What is your living situation today?: I have a steady place to live Within the past 12 months, did the food you bought not last and you didn't have the money to get more?: Never true Within the past 12 months, did you worry whether your food would run out before you got money to buy more?: Never true Do you have trouble paying for medicines?: No Do you have trouble getting transportation to medical appointments?: No Do you have trouble paying your heating and electricity bill?: No Do you have trouble taking care of your child, family member or friend?: No Do you have trouble with day-to-day activities such as bathing, preparing meals, shopping, managing finances, etc.?: No Are you currently unemployed and looking for a job?: No Are you interested in more education?: No Please select the resources that you would like help with: None Currently or been in a relationship where the following occur: No concerns reported THRIVE Score: 0 AUDIT C Alcohol Use Questionnaire (AUDIT-C) 1. How often do you have a drink containing alcohol?: Never 3. How often do you have six or more drinks on one occasion?: Never Total Score: 0 SHANTE-7 AMB Questionnaire SHANTE-7 Date SHANTE - 7 assessed: 01/04/24 Feeling nervous, anxious, or on edge: 0 = Not at all Not being able to stop or control worryin = Several days Worrying too much about different things: 1 = Several days Trouble relaxin = Several days Being so restless that it is hard to sit still: 0 = Not at all Becoming easily annoyed or irritable: 1 = Several days Feeling afraid as if something awful might happen: 0 = Not at all Total SHANTE-7 score (0-4 normal; 5-9 mild; 10-14 moderate; 15-21 severe): 4 Source: Developed by Drs. Michael Kamara, Felicia Asif, Jeffrey Nguyen and colleagues, with an educational darion from [employer]. SHANTE-7 Assessment Billing SHANTE-7 Assessment Tool: SHANTE-7 Assessment [id number] Review of Systems Const Details: Const Denies chills, Denies fatigue, Denies fever(s), Denies headache(s) and Denies weakness ENT Denies dizziness and Denies headache(s) Card Denies chest pain, Denies lightheadedness, Denies dyspnea and Denies other (Palpitations) Resp Denies cough, Denies dyspnea, Denies wheezing and Denies other ( shortness of breath) GI Denies abdominal pain, Denies melena, Denies hematochezia, Denies change in bowel habits, Denies dyspepsia and Denies nausea Denies hematuria and Denies dysuria Musc Reports as per HPI Skin/Breast Denies rash, Denies unusual bruising and Denies wounds Neuro Denies abnormal gait, Denies dizziness, Denies headache(s), Denies memory loss, Denies numbness, Denies Sensory deficit (Neuro), Denies tingling and Denies weakness Psych Denies anxiety, Denies depression, Denies memory loss Endo Denies cold intolerance, Denies fatigue, Denies heat intolerance, Denies polydipsia and Denies polyuria Aller/Immun Denies wheezing Physical exam (Primary Care) Vital Signs: Last Vital Signs Temp 97.5 F 01/04/24 10:12 Pulse 84 01/04/24 10:12 Resp 16 01/04/24 10:12 BP 134/82 01/04/24 10:12 Pulse Ox 96 01/04/24 10:12 Oxygen Delivery Method Room Air 01/04/24 10:12 BMI result Body Mass Index 35.3 Tobacco/Smoking Status: Tobacco use Status Tobacco use date assessed 01/04/24 01/04/24 10:12 Patient Tobacco Use Status Current everyday Tobacco 01/04/24 10:09 Tobacco use type Cigarette 01/04/24 10:09 e-Cigarette/Vaping Use Never Used 01/04/24 10:09 PHQ-9: PHQ-9 Score PHQ-9: Total score 0 01/04/24 10:35 Depression Screening Interpretation: Negative Thrive Assessment: Date of Thrive Assessment Date Thrive assessed 01/04/24 01/04/24 10:17 Currently or been in a relationship where the following occur: No concerns reported Const Other: General: no acute distress and well developed Nutritional Appearance: well nourished Orientation/consciousness: patient oriented x3 HENMT Head: Yes normocephalic and Yes atraumatic Eyes General: appearance normal, both eyes and all related structures Pupils: Equal, round and reactive pupils present EOM: EOMs intact bilaterally Resp Effort & Inspection: normal respiratory effort Auscultation: clear to auscultation bilaterally Cardio Rate: regular rate Rhythm: regular rhythm Heart sounds: S1 normal heart sound present, S2 normal heart sound present, no gallops, no murmurs and no rubs GI Palpation (GI): No Abdominal aortic bruit present, Soft to palpation, nontender, No hepatosplenomegaly present and No Rebound tenderness present Auscultation: normal bowel sounds General: Yes no CVA tenderness Back/Spine/Pelvis Back: no CVA tenderness. Right lower back tenderness to palpation Cervical Spine: cervical ROM normal and No Cervical spine tenderness Thoracic/Lumbar Spine: thoraco-lumbar ROM normal, No pain with thoraco-lumbar ROM, No thoracic spinal tenderness and No lumbar spinal tenderness. Right lower back tenderness to palpation Extrem General: Yes normal to inspection, No edema and No calf tenderness Skin General: warm and dry. Normal skin color. Normal skin turgor Lesions: no lesions Rashes: no rashes Trauma: no lacerations or abrasions Wounds: no wounds Nails: normal Neuro General: patient oriented x3, gait normal and no focal neuro deficit Cranial nerves: Yes Equal, round and reactive pupils present Cognition (Neuro): normal cognition Gait exam (Neuro): Normal gait present Sensory Exam: No Sensory deficit (Neuro) Psych Appearance: grossly normal Affect: normal affect Attitude: cooperative Thought process: Normal thought process present Assessment and Plan Assessment & Plan (1) Normal physical examination, routine: Code(s): Z00.00 - Encounter for general adult medical examination without abnormal findings Plan: No significant physical restrictions limitations noted Continue current treatment regimen Healthy diet and routine exercise encouraged Advised to get fasting blood work Return sooner with symptoms or concerns Verbalized understanding and agreed with the plan (2) Anxiety: Code(s): F41.9 - Anxiety disorder, unspecified Plan: Significantly improved anxiety and depressive symptoms since he resumed work 3 weeks ago. Sleep is still an issue. He sleeps an average of 3 hours nightly and unable to maintain sleep PHQ-9 and SHANTE-7 scores are normal Will trial hydroxyzine 50 mg at bedtime to target sleep Routine exercise encouraged Follow-up with worsening or new symptoms Verbalized understanding and agreed with the treatment plan (3) Insomnia: Code(s): G47.00 - Insomnia, unspecified Plan: Plan as above (4) Elevated fasting glucose: Code(s): R73.01 - Impaired fasting glucose Plan: Recent lab results reviewed with the patient Fasting blood glucose is elevated, 154 Will repeat fasting glucose and make changes as need. Will call patient to review lab result and for his next follow-up appt Healthy diet encouraged Verbalized understanding and agreed with the plan (5) Low HDL (under 40): Code(s): E78.6 - Lipoprotein deficiency Plan: Recent HDL level is low, 32 Advised to limit foods high in saturated fat and avoid foods high in trans fat Routine exercise encouraged Verbalized understanding and agreed with the plan (6) Back pain: Code(s): M54.9 - Dorsalgia, unspecified Plan: Reports acute on chronic right lower back pain Right lower back tenderness to palpation Negative straight leg raises bilaterally Continue current treatment regimen Warm/cool compresses encouraged He will call his orthopedic to schedule an appointment for his back pain Follow-up with PCP as needed Verbalized understanding and agreed with the plan Orders: Orders Glucose Fasting Today R73.01 - Impaired fasting glucose Medications: New hydroxyzine HCl 50 mg PO BEDTIME 30 tabs 3RF 30 days Coding Level of Care Code Est Pt Level 4 (59698) Est Pt Prev Care 40-64y(32529) Diagnoses Normal physical examination, routine Z00.00 Anxiety F41.9 Insomnia G47.00 Elevated fasting glucose R73.01 Low HDL (under 40) E78.6 Back pain M54.9 Additional Codes SHANTE-7 Assessment Billing - SHANTE-7 Assessment Tool: SHANTE-7 Assessment 26183 ([id number])
[2024-01-04 10:12] VITALS: BP 134/82; PULSE 84; RESP 16; TEMP 36.4; O2SAT 96; BMI 35.3
== END 2024-01-04 10:52 | disposition home or self-care (01) ==
PROVIDERS: Visit Provider Nurse Practitioner Family
DX: Z00.00 Encounter for general adult medical examination without abnormal findings (principal); F41.9 Anxiety disorder, unspecified; G47.00 Insomnia, unspecified; R73.01 Impaired fasting glucose; E78.6 Lipoprotein deficiency; M54.9 Dorsalgia, unspecified

== ENCOUNTER 2024-01-04 10:03 | Outpatient (REF) | payer OTHER, SELFPAY ==
[2024-01-04 15:41] LABS: Glucose Fasting 104 mg/dL (60-99)
== END 2024-01-04 10:04 | disposition home or self-care (01) ==
LOC: HO.WFDLDS 10:03
PROVIDERS: Visit Provider Nurse Practitioner Family
DX: Z00.00 Encounter for general adult medical examination without abnormal findings (principal); F41.9 Anxiety disorder, unspecified; G47.00 Insomnia, unspecified; R73.01 Impaired fasting glucose; E78.6 Lipoprotein deficiency; M54.50 Low back pain, unspecified
CPT/HCPCS: 36415; 82947; 96127; 99212; 99396

== ENCOUNTER 2024-07-10 13:39 | Outpatient (AMB) | payer OTHER, SELFPAY ==
--- NOTE | 2024-07-10 13:41 | MHC.PC.OV ---
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: No Allergies No Known Allergies Allergy (Verified 07/10/24 14:11) Medication List - Last Reconciled 07/10/24 by Nayan Ugalde CNP acetaminophen 1,000 mg (2 x 500 mg) PO Q6H PRN cholecalciferol (vitamin D3) 50 mcg PO DAILY cyclobenzaprine 10 mg PO BEDTIME ibuprofen 800 mg PO Q8H lidocaine 5% 1 patch topical DAILY metoprolol succinate ER 50 mg PO DAILY Tobacco use date assessed: 07/10/24 Dental Screening Dental Screen Date: 07/10/24 Did you have a dental visit in the last 12 months?: Yes Did you have a dental problem in the last 6 months where you did not have access to dental care?: No Was dental information given to patient?: Patient has dentist HPI HPI Comments History of Present Illness Details 43-year-old male presents for ED discharge follow-up. He was evaluated and treated at [facility] in [place] on 07/08/2024 for left-sided chest pain and dyspnea that gradually worsened for 3 days. The chest pain radiated to his left shoulder. EKG revealed atrial fibrillation. He was treated with IV fluids and diltiazem. Labs were unremarkable except for slightly elevated WBC, 12.9. Patient notes that a bedside chest x-ray was done but not included in the ED discharge summary received. He notes that he has been experiencing persistent difficulty breathing and intermittent palpitations since he had A-fib a few days ago. Using his son's albuterol helps with his breathing. He denies chest pain or dizziness/lightheadedness. He has not smoked cigarettes in the past 2 weeks. He has history of smoking 1 pack cigarettes daily x 20-25 years. 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 He has not followed up in the past 2 years. [facility] Medical History Marijuana dependence Kidney stones Encounter to establish care Surgical History History of esophagogastroduodenoscopy (EGD) History of appendectomy H/O shoulder surgery Family History Mother Hypertension CHF (congestive heart failure) Father Stroke Social History (Updated 11/17/23 @ 13:24 by Stacey Lui [facility]) Housing: House Are you a primary child care director to a significant other at home: No Do you presently have visiting nurse or other home services: No Patient Tobacco Use Status: Former Tobacco user Tobacco use type: Cigarette Cigarette Packs Per Day: 0.5 Cigarettes Per Day: 10.0 Years Smoked: 25 e-Cigarette/Vaping Use: Never Used Substance Use Type: Marijuana service: Yes Current occupational status: employed Cognitive needs: No Hearing needs: No Vision needs: No Questionnaire PHQ-9 Over the last 2 weeks, how often have you been bothered by any of the following problems? 1. Little interest or pleasure in doing things: more than half the days 2. Feeling down, depressed, or hopeless: not at all 3. Trouble falling or staying asleep, or sleeping too much: nearly every day 4. Feeling tired or having little energy: nearly every day 5. Poor appetite or overeating: not at all 6. Feeling bad about yourself - or that you are a failure or have let yourself or your family down: not at all 7. Trouble concentrating on things, such as reading the newspaper or watching television: not at all 8. Moving or speaking so slowly that other people could have noticed. Or the opposite - being so fidgety or restless that you have been moving around a lot more than usual: not at all 9. Thoughts that you would be better off or of hurting yourself in some way: not at all Total score: 8 Source: Developed by Drs. Michael Kamara, Felicia Asif, Jeffrey Nguyen and colleagues, with an educational darion from [employer]. Thrive Questionnaire Date Thrive assessed: 01/04/24 I am a: Patient What is your living situation today?: I have a steady place to live Within the past 12 months, did the food you bought not last and you didn't have the money to get more?: Never true Within the past 12 months, did you worry whether your food would run out before you got money to buy more?: Never true Do you have trouble paying for medicines?: No Do you have trouble getting transportation to medical appointments?: No Do you have trouble paying your heating and electricity bill?: No Do you have trouble taking care of your child, family member or friend?: No Do you have trouble with day-to-day activities such as bathing, preparing meals, shopping, managing finances, etc.?: No Are you currently unemployed and looking for a job?: No Are you interested in more education?: No Please select the resources that you would like help with: None Currently or been in a relationship where the following occur: No concerns reported THRIVE Score: 0 AUDIT C Alcohol Use Questionnaire (AUDIT-C) 1. How often do you have a drink containing alcohol?: Never Total Score: 0 SHANTE-7 AMB Questionnaire SHANTE-7 Date SHANTE - 7 assessed: 01/04/24 Feeling nervous, anxious, or on edge: 3 = Nearly every day Not being able to stop or control worryin = Nearly every day Worrying too much about different things: 3 = Nearly every day Trouble relaxin = Nearly every day Being so restless that it is hard to sit still: 2 = More than half the days Becoming easily annoyed or irritable: 3 = Nearly every day Feeling afraid as if something awful might happen: 0 = Not at all Total SHANTE-7 score (0-4 normal; 5-9 mild; 10-14 moderate; 15-21 severe): 17 Source: Developed by Drs. Michael Kamara, Felicia Asif, Jeffrey Nguyen and colleagues, with an educational darion from [employer]. Review of Systems Const Details: Const Denies chills, Denies fatigue, Denies fever(s), Denies headache(s) and Denies weakness ENT Denies dizziness and Denies headache(s) Card Denies chest pain, Denies lightheadedness, Reports dyspnea and Reports Palpitations Resp Denies cough, Reports dyspnea, Denies wheezing GI Denies abdominal pain, Denies melena, Denies hematochezia, Denies change in bowel habits, Denies dyspepsia and Denies nausea Denies hematuria and Denies dysuria Musc Denies abnormal gait, Denies myalgias, Denies arthralgias, Denies numbness and Denies tingling Skin/Breast Denies rash, Denies unusual bruising and Denies wounds Neuro Denies abnormal gait, Denies dizziness, Denies headache(s), Denies memory loss, Denies numbness, Denies Sensory deficit (Neuro), Denies tingling and Denies weakness Psych Denies anxiety, Denies depression, Denies memory loss Endo Denies cold intolerance, Denies fatigue, Denies heat intolerance, Denies polydipsia and Denies polyuria Aller/Immun Denies wheezing Physical exam (Primary Care) Vital Signs: Last Vital Signs Temp 98.3 F 07/10/24 13:55 Pulse 80 07/10/24 13:55 Resp 16 07/10/24 13:55 BP 141/83 H 07/10/24 13:55 Pulse Ox 96 07/10/24 13:55 Oxygen Delivery Method Room Air 07/10/24 13:55 BMI result Body Mass Index 39.0 Tobacco/Smoking Status: Tobacco use Status Tobacco use date assessed 07/10/24 07/10/24 14:00 Patient Tobacco Use Status Former Tobacco user 07/10/24 14:00 Tobacco use type Cigarette 07/10/24 13:43 e-Cigarette/Vaping Use Never Used 07/10/24 13:43 PHQ-9: PHQ-9 Score PHQ-9: Total score 8 07/10/24 13:43 Thrive Assessment: Date of Thrive Assessment Date Thrive assessed 01/04/24 07/10/24 13:43 Currently or been in a relationship where the following occur: No concerns reported Const Other: General: no acute distress and well developed Nutritional Appearance: well nourished Orientation/consciousness: patient oriented x3 HENMT Head: Yes normocephalic and Yes atraumatic Eyes General: appearance normal, both eyes and all related structures Pupils: Equal, round and reactive pupils present EOM: EOMs intact bilaterally Resp Effort & Inspection: normal respiratory effort Auscultation: clear to auscultation bilaterally Cardio Rate: regular rate Rhythm: regular rhythm Heart sounds: S1 normal heart sound present, S2 normal heart sound present, no gallops, no murmurs and no rubs GI Palpation (GI): No Abdominal aortic bruit present, Soft to palpation, nontender, No hepatosplenomegaly present and No Rebound tenderness present Auscultation: normal bowel sounds General: Yes no CVA tenderness Back/Spine/Pelvis Back: no CVA tenderness Cervical Spine: cervical ROM normal and No Cervical spine tenderness Thoracic/Lumbar Spine: thoraco-lumbar ROM normal, No pain with thoraco-lumbar ROM, No thoracic spinal tenderness and No lumbar spinal tenderness Extrem General: Yes normal to inspection, No edema and No calf tenderness Skin General: warm and dry. Normal skin color. Normal skin turgor Neuro General: patient oriented x3, gait normal and no focal neuro deficit Cranial nerves: Yes Equal, round and reactive pupils present Cognition (Neuro): normal cognition Gait exam (Neuro): Normal gait present Sensory Exam: No Sensory deficit (Neuro) Psych Appearance: grossly normal Affect: normal affect Attitude: cooperative Thought process: Normal thought process present Office Procedures EKG Details: EKG today revealed atrial fibrillation with rapid ventricular response at 174 BPM. [id number], Complete Results AMB Hemoglobin A1c AMB Hemoglobin A1c 5.9 % Last Edit by Lakshmi Johnson MA on 07/10/24 15:22 Coding Level of Care Code Est Pt Level 4 (64883) Diagnoses Atrial fibrillation I48.91 Dyspnea R06.00 Prediabetes R73.03 CPT Codes EKG - CPT: 10476-[id number], Complete ([id number]) Assessment & Plan Assessment & Plan (1) Atrial fibrillation: Code(s): I48.91 - Unspecified atrial fibrillation Category: Medical Plan: He has been experiencing persistent difficulty breathing and intermittent palpitations for the past few days. EKG today revealed atrial fibrillation with rapid ventricular response at 174 BPM. His dyspnea is likely related to AFib. Advised to go to the ED for further workup and treatment. He is going to [facility]. Nurse report given from our office to the ED. Return for an ED follow-up visit. Verbalized understanding and agreed with the plan. (2) Dyspnea: Code(s): R06.00 - Dyspnea, unspecified Category: Medical Plan: Plan as above. (3) Prediabetes: Code(s): R73.03 - Prediabetes Category: Medical Plan: His fasting glucose has been elevated twice. A1c today is 5.9%. Routine exercise and healthy diet, including low carbs encouraged. Will continue to monitor. Verbalized understanding and agreed with the plan. Orders: Orders AMB EKG-In Office Today I48.91 - Unspecified atrial fibrillation AMB Hemoglobin A1c Today Z13.9 - Encounter for screening, unspecified
[2024-07-10 13:55] VITALS: BP 141/83; PULSE 80; RESP 16; TEMP 36.8; O2SAT 96; BMI 39.0
[2024-07-10 14:41] VITALS: BP 100/60; PULSE 147
--- OUTSIDE RECORDS SUMMARY | 2024-07-10 16:15 | XMS_ITS | Data Portability ---
Author Organization [facility] - Alan Pinedo, [facility] Address [address] [place] [id number] Care Team Providers Care Finger Cobbler Name Role Phone TORI BENTLEY Referring Provider Assessment No assessment recorded. Plan of Treatment Reminders Order Date Submit Date Provider Last Modified By Organization Details Last Modified Time Details Appointments None recorded. Lab None recorded. Referral nutritionis t/dietitian referral 2022 023 ish Not available 3 06:08:44 Procedures None recorded. Surgeries None recorded. Imaging exercise stress test - PRE-ETT COVID TEST AT 7:00 AM 2022 023 [facility] [place], [address] [place] [address], [id number], 3 09:08:43 electrocard iogram 2022 023 ish Christy MD, [address] [place] [address], [phone], 3 16:27:22 US, echocardiog tosha 2022 023 [facility] [place], [address] [place] [address], [id number], 3 09:59:57 Medication Orders None recorded. Patient TargetsNo targets recorded. Patient Instructions Encounter Date Encounter Id Patient Instructions Last Modified By Organization Details Last Modified Time 05/23/2022 [id number] I spent 40 minut es on the date on encounter , services included: -Preparing to see the patient (e.g. review of documents and test results) -Obtaining and/or reviewing separately obtained history -Performing a medically appropriate exam and /or evaluation -Counseling and educating the patient/family/car egiver -referring and communication with another healthcare professional, when not separately reported -Documenting clinical information in the health record -Independently interpreting results (not separately reported) and communication results to the patient/family/car egiver -Care coordination not separately reported -Complex decision making Dionna electronic speech recognition has been used to prepare this document. [employer] Draft[employer] errors can arise from this process and are usual and can easily evade proofreading. For example, short words may be simply omitted, and misspelled, or replaced by other words and completely change the meaning of full sentences within the document. These errors arise from the use of electronic speech recognition. Please be aware of these errors and do not hesitate to contact his office directly for anything that may not make sense within this dictated note. This patient's workup and care was performed during the COVID-19 pandemic and all the appropriate precautions had to be taken including the use of all the personal protective equipment and masking that is necessary for these cases. This markedly increased the physician time, complexity care and complexity of decisions involved over a similar case during non-pandemic times. Risk-benefit decisions of what was in the best interest for this particular patient were made in the light of the COVID-19 pandemic actively affecting the hospital and the community outside the hospital. The decision calculus is necessarily different than what it would be during non-pandemic times. The care documented on this case reflects this. 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 Refer ral for Increased body mass index Referring Physician: Alan Christy, Cardiology, Encounter Date: 05/23/2022 Results Created Date Observation Date Name Description Value Unit Range Abnormal Flag Note LastModifiedBy Organization Detail LastModifiedTime 06/01/19 23 06/01/2022 COVID RAPID TEST covid rapid test NEGATI VE negati ve ID NOW COVID -19 assay Is a rapid molec ular in vitro diagn ostic test utili zing an isoth ermal nucle ic acid ampli ficat ion techn ology inten ded for the quali tativ e detec tion of nucle ic acid from the SARS- CoV-2 viral RNA in direc t nasal , nasop haryn geal or throa t swabs elute d in viral trans port media from indiv idual s who are suspe cted of COVID -19. Resul ts are for the ident ifica tion of SARS- CoV-2 RNA. The SARS- CoV-2 RNA is gener ally detec table in respi rator y sampl es durin g the acute phase of infec tion. Posit malgorzata resul ts are indic ative of the prese nce of SARS- CoV-2 RNA; clini antonietta corre latio n with patie nt histo ry and other diagn ostic infor matio n is neces khushi to deter mine patie nt infec tion statu s. Posit malgorzata resul ts do not rule out bacte rial infec tion or co-in fecti on with other virus es. Negat malgorzata resul ts do not precl ude SARS- CoV-2 infec tion and shoul d not be used as the sole basis for patie nt manag ement decis ions. Negat malgorzata resul ts must be combi ying with clini antonietta obser vatio ns, patie nt histo ry, and epide miolo gical infor matio n. The ID NOW COVID -19 test is only for use under the Food and Drug Admin istra tion' s Emerg ency Use Autho rizat ion. Not Available [facility] (Lab) [address], [place], [address], 06/01/2022 07:23:54 05/23/19 elect rocar diogr am No observ ation record ed. becca Christy MD [address], [place], [address], 05/23/2022 13:10:39 05/23/19 23 03/23/2022 XR, chest No observ ation record ed. [email or web address] Not Available 2022 17:37:04 05/23/19 23 03/23/2022 elect rocar diogr am No observ ation record ed. ntumolo Not Available 2022 17:37:48 05/23/19 23 12/05/2021 elect rocar diogr am No observ ation record ed. ntumolo Not Available 2022 17:38:17 05/23/19 23 08/19/2021 elect areli diogr am No observ ation record ed. ntumolo Not Available 2022 17:39:05 06/01/19 23 06/01/2022 exerc isrochelle noriega s test No observ [facility]ion [facility]. [facility] [address], [address], 10/27/2022 05:56:02 06/01/19 23 06/01/2022 US, echo ardio gram No observ ation record ed. [facility] [address], [address], 06/01/2022 17:43:36 Result Notes None recorded. Problems Name Problem SNOMED Code Status Onset Date Resolution Date Notes Provider Name and Address Organization Details Recorded Time Syncope 154440157 Active 2022 [facility] Green MD 3 12:00:45 Atrial fibrillation 26991243 Active 2022 [facility] Green MD 3 12:01:16 Essential hypertension 28269224 Active 2022 [facility] Finch MD 3 08:21:05 Gastroesophage al reflux disease 236994698 Active 2022 [facility] Finch MD 3 08:21:41 Chest pain 33573427 Active 2022 [facility] Finch MD 3 08:23:54 Increased body mass index 71769484 Active 2022 [facility] Finch MD 3 08:41:45 Smoker 55095345 Active 2022 Alan Christy MD [address] [place] [address] [address], [place], [phone], [facility] Christy MD 13:25:46 Family history of stroke 645951851 Active 2022 Alan Christy MD [address] [place] [address] [address], [place], [address], [facility] Christy MD 13:27:59 Problem Notes None recorded. Procedures Surgical History Date Name Laterality Status Provider Name and Address Organization Details Recorded Time 12/04/19 22 complete repair of rotator cuff completed Rose Christy MD 05/22/2022 19:14:59 04/17/19 05 Appendectomy completed Rose Christy MD 05/22/2022 08:26:23 Imaging Results Imaging Date Name Status LastModified by Organization Details LastModified Time 05/23/2022 electrocardiogram completed tdru Christy MD [address] [place] [address], [phone], 05/23/2022 13:10:39 03/23/2022 XR, chest completed ish Information no t available 05/23/2022 17:37:04 03/23/2022 electrocardiogram completed Informa tion not available 05/23/2022 17:37:48 12/05/2021 electrocardiogram completed Informa tion not available 05/23/2022 17:38:17 08/19/2021 electrocardiogram completed Informa tion not available 05/23/2022 17:39:05 06/01/2022 exercise stress test completed [facility] [address], [address], 10/27/2022 05:56:02 06/01/2022 US, echocardiogram completed [facility] [address], [address], 06/01/2022 17:43:36 Procedure Notes None recorded. Medical Equipment None Reported. Allergies No known drug allergies Medications Name Sig Start Date Stop Date Status Note LastModified by Organization Details LastModified Time amoxicillin 500 mg capsule active Not Available Not Available Not Available ibuprofen 800 mg tablet Take 1 tablet 3 times a day by oral route as needed. active Not Available Not Available No t Available metoprolol succinate ER 25 mg tablet,exten ded release 24 hr TAKE 1 TABLET BY MOUTH ONCE DAILY active Not Available Not Available No t Available Tylenol 8 Hour 650 mg tablet,exten ded release Take 2 tablets every 8 hours by oral route as needed. 05/22 completed Not Available Not Available Not Available chlorhexidin e gluconate 0.12 % mouthwash DIRECTED , NEEDED active Not Available Not Available No t Available acetaminophe n DIRECTED , NEEDED active Not Available Not Available No t Available ibuprofen DIRECTED , NEEDED active Not Available Not Available No t Available Vitamin D3 DAILY active Not Available Not Av ailable Not Available ergocalcifer ol (vitamin D2) 50 mcg (2,000 unit) capsule Take 1 capsule every day by oral route. 05/23 completed Not Available Not Available Not Available Vitals Date Recorded Body height Provider Name an d Address Organization Details Last Updated DateTime 05/23/2022 205.74 cm Rose Christy MD 0 05/23/2022 05:36:32 Date Recorded Body mass index (BMI) Body weight Body temperature Oxygen saturation Oxygen saturation in Arterial blood by Pulse oximetry Heart rate Respiratory rate Systolic blood pressure Diastolic blood pressure Provider Name and Address Organization Details Last Updated DateTime 3 31.7 kg/m2 867551. 34 g 98.9 [degF] 97 % 97 % 98 /min 14 /min 130 mm[Hg] 84 mm[Hg] Alan Christy MD [address] [place] [address] [employer] [address], [place], [address], [facility] Christy MD 3 13:04:02 Social History Question Answer Notes LastModified by Organizat ion Details LastModified Time Tobacco Smoking Status Current Every Day Smoker MARLENY BALLESTEROS null, [facility] Christy MD 04/27/2022 12:06:36 Do You Have An Advance Directive? Yes Information not available 05/22/2022 What Is Your Level Of Alcohol Consumption? None Information not available 04/27/2022 What Is Your Level Of Caffeine Consumption? Moderate Information not available 05/22/2022 What Type Of Diet Are You Following? REGULAR Information not available 04/27/2022 Which Illicit Or Recreational Drugs Have You Used? CANNABIS Information not available 05/22/2022 What Was The Date Of Your Most Recent Tobacco Screening? 05/23/2022 Information not available 05/23/2022 What Is Your Relationship Status? Domestic Partner Information not available 04/27/2022 How Much Tobacco Do You Smoke? 0.5 PPD Information not available 04/27/2022 Do You Feel Stressed (tense, Restless, Nervous, Or Anxious, Or Unable To Sleep At Night)? [id number] Information not available 04/27/2022 Do You Use Any Illicit Or Recreational Drugs? Yes Information not available 04/27/2022 Has Tobacco Cessation Counseling Been Provided? Yes Information not available 05/22/2022 On What Date Was Tobacco Cessation Counseling Provided? 05/23/2022 Information not available 05/23/2022 Do You Have Any Dietary Restrictions? No Information not available 04/27/2022 Do You Or Have You Ever Used Any Other Forms Of Tobacco Or Nicotine? No Information not available 05/22/2022 Sex: Unknown Functional Status Question Answer Note LastModified by Organizat ion Details LastModified Time What is your exercise level? Occasional Information not available 04/27/2022 Mental Status None recorded. Family History Relationship Description Onset Age of this Age Resolved Age Notes LastModified by Organization Details LastModified Time Mother Congestive heart failure [email or web address] Not available 2022 12:05:09 Mother Malignant neoplastic disease THYROI D [email or web address] Not available 05/22/2022 08:24:21 Father Hypertensive disorder [email or web address] Not available 2022 16:35:55 Father Cerebrovascu lar accident [email or web address] Not available 02/2023 16:36:21 Maternal Grandfather Malignant neoplastic disease [email or web address] Not available 2022 16:36:08 Medical History Condition Response Orthopedic Problems Y Genitourinary Disease Y Gastrointestinal Disease Arrhythmia Y Kidney Disease Y Sleep Disorder Y Hypertension Y Immunizations Vaccine Type Date Status Note Provider Nam e and Address Organization Details Recorded Time SARS-COV-2 (COVID-19) vaccine, UNSPECIFIED 01/15/2021 completed [facility] [address] [facility] [address] [place], [address], [facility]UM[facility] Christy MD 05/23/2022 12:48:36 SARS-COV-2 (COVID-19) vaccine, UNSPECIFIED 06/15/2020 completed Alan Christy MD [address] [place], [place] [address], [place], [address], TRUMAN Christy MD 05/23/2022 12:48:47 SARS-COV-2 (COVID-19) vaccine, UNSPECIFIED 07/12/2020 completed Alan Christy MD [address] [place], [place] [address], [place], [address], [facility]UMAN Christy MD 05/23/2022 12:48:57 Past Encounters Encounter ID Performer Location Encounter Start Date Encounter Closed Date Diagnosis/Indication Diagnosis SNOMED-CT Code Diagnosis ICD10 Code Diagnosis Note [id number] Alan Christy MD - [address] [place] [address] [facility] [address] [place] [address] 05/23/2022 04:51:38 05/23/2022 13:19:00 Atrial fibrillation 57446364 I48.91 He had isolated episode of A-fib a few years ago without recurrence . He had some chest pain leading into the March ER visit when he stopped his metoprolol . He has continue metoprolol since then. There has been no further episode of A-fib, arrhythmia or chest pain. Exam shows upper normal blood pressure. He has normal cardiac exam findings. There is no heart failure or murmur. He is euvolemic. EKG is within normal limits Impression : Isolated episode of A-fib possibly occurring 3 years ago without recurrence . Some chest discomfort lately leading to ER visit with negative work-up in the ER. I suggest that he continue to work on smoking cessation to reduce his cardiac risk. A stress test is appropriat e to evaluate his chest pain and rule out the possibilit y of premature CAD. A-fib will be on likely to recur as a significan t problem at his age. The episode of A-fib also occurred during the day and does not seem like a typical pattern that 1 would see with sleep apnea. He has not been tested for sleep apnea. Essential hypertension 50488165 I10 Borderline hypertensi ve readings. Will need further trending. Gastroesop hageal reflux disease 250934508 K21.9 Chest pain 41902068 R07. 9 As aboveChest pain leading to ER visit March Increased body mass index 48562710 E66.3 Smoker 97874561 F17.200 Continue to work on smoking cessation to reduce cardiac and respirator y risk Health Concerns Section Related Observation LastModified by Organization Detai ls LastModified Time None Recorded Concern Status LastModified by Organization Details LastModified Time None Recorded Advance Directives Directive Y: Payers Encounter Date Sequence Insurance Name Policy Number Policy Toussaint Covered Member ID Toussaint Member ID Guarantor Name 05/23/2022 1 [facility] [employer] (MEDICAID REPLACEMENT - HMO) SHAUN Loja [id number] Davy Loja Notes Date Note Type Note Provider Name and Address Organization Details Recorded Time 05/23/2022 text/html This is the firs t clinic visit for this 41-year-old who comes in for evaluation of his cardiac status. He had chest pain and an ED visit in March 2022. His ED findings were unremarkable for coronary problems. He ruled out for PA. Chest x-ray was normal. His EKG shows sinus rhythm with leftward axis and no ST abnormalities. A work-up was recommended but not completed. He decided to go home and did not pursue a cardiac evaluation. Past medical history notable for hypertension, kidney stones and arthritic/orthoped ic complaints. He has had right shoulder surgery and will need another operation soon. He had an episode of atrial fibrillation a few years ago. He thought he was at [facility] but found out to his that this was at [facility]. He smokes cigarettes and previously smoked a pack a day and has been cutting back. Family history is positive for heart failure, hypertension and stroke. Alan Christy MD [address] [facility] [address], [place], [address], [facility] - Alan Christy MD 05/23/2022 17:16:32
--- OUTSIDE RECORDS SUMMARY | 2024-07-10 16:15 | XMS_ITS | Encounter Summary ---
Author Organization [facility] Address [address] [place] [address] Care Team Providers Care Operations And Maintenance Manager Name Role Phone Rodríguez Mendiola MD Primary Care Provider [phone] Reason for Visit * Reason Comments Chest Pain SOB Encounter Details Date Type Department Care Team ([facility] st Contact Info) Description 07/08/2024 7:26 AM EDT - 07/08/2024 10:01 AM EDT Emergency [facility] Emergency Department [address] [place] [phone] Randy Hernandez MD [address] [place] [phone] Atrial fibrillation with rapid ventricular response (Primary Dx) Discharge Disposition: Home or Self Care () Social History Tobacco Use Types Packs/Day Years Used Date Smoking Tobacco: Former Cigarettes S tarted: 2024 Tobacco Cessation:Counseling Given: Not Answered Comments:: Alcohol Use Standard Drinks/Week Comments Not Currently 0 (1 standard drink = 0.6 oz pur e alcohol) Sex and Gender Information Value Date Recorded Sex Assigned at Male 02/26/2023 3:58 PM EST Legal Sex Male 6:18 PM EDT Gender Identity Male 02/26/2023 3:58 PM EST Sexual Orientation Straight 02/26/2023 3: 58 PM EST documented as of this encounter Last Filed Vital Signs Vital Sign Reading Time Taken Comments Blood Pressure 110/72 07/08/2024 8:57 AM EDT Pulse 115 07/08/2024 8:57 AM EDT Temperature 37.1 ??C (98.7 ??F) 07/08/2024 7:17 AM ED T Respiratory Rate 20 07/08/2024 8:57 AM EDT Oxygen Saturation 97% 07/08/2024 8:57 AM EDT Inhaled Oxygen Concentration - - Weight 158.8 kg (350 lb) 07/08/2024 7:17 AM EDT Height 203.2 cm (6' 8 ) 07/08/2024 7:17 AM EDT Body Mass Index 38.45 07/08/2024 7:17 AM EDT documented in this encounter Discharge Instructions * Discharge Instructions* Randy Hernandez MD - 07/08/2024 9:49 AM EDT You were seen and evaluated in the emergency room. You are found to have atrial fibrillation with increased heart rate. You were treated with IV fluids and medicine. Please increase your home dose of metoprolol up to 50 mg once daily. A new prescription for this medicine have been sent to your pharmacy. Please take as directed. Please follow up with your primary care doctor in the next 2 days. Please call today to schedule a follow-up appointment. You are given a referral to follow-up with cardiology. Please call today to schedule a follow-up appointment. Please return to the emergency room if you have any new or concerning symptoms. * Attachments The following attachments cannot be sent through Care Everywhere. * Atrial fibrillation ??? Discharge instructions (Czech) documented in this encounter Medications at Time of Discharge cholecalciferol (VITAMIN D3) 2,000 unit capsule Take 1 capsule by mouth daily. 09/14/2022 metoprolol succinate XL (TOPROL XL) 50 mg tablet Take 1 tablet (50 mg total) by mouth once a day. 30 tablet 07/09/2024 documented as of this encounter Consult Notes * Alan Christy MD - 07/08/2024 10:01 AM EDT I was called on 07/08/2024 about this patient #[id number] in regards to atrial fibrillation. He was treated with metoprolol for rate control. He had better rate control in ED. Plans were to provide anticoagulation. There was a history of chest discomfort. There is chest discomfort radiating to the left shoulder but he also felt like someone was sitting on his chest. I spoke with the ED staff and suggested that he needs admission. I was told by ED physician that rate was controlled and he was stable to go home. ED staff decided to discharge him. My advice was to have him call PCP since he had a plan that was connected to PCP. We had seen him in the past and do that we are not in his provider [place] to see him and would best coordinated through PCP for referral. If PCP approves, we can then see him for evaluation. documented in this encounter ED Notes * Valery Kennedy RN - 07/08/2024 9:28 AM EDT Rm 12 please Valery Kennedy RN 07/08/24 0928 * Randy Hernandez MD - 07/08/2024 7:03 AM EDT History HPI: Chief Complaint Patient presents with Chest Pain SOB HPI This is a 43-year-old man with a past medical history of atrial fibrillation, history of shoulder surgery, history of wrist surgery, history of appendectomy who presents for evaluation of chest pain and dyspnea. Patient states that he has had gradually worsening chest pain and dyspnea over the last3 days. He states no recent fevers, chills, cough or hemoptysis. He states he feels like somebody sitting on his chest. He reports no diaphoresis or vomiting. He states having pain in the left side of his chest going up to the shoulder. He states that he feels like he is in A-fib. He states for this reason he has been taking 50 mg of his metoprolol daily instead of his usual 25 mg. He states no syncope. He states no recent trauma or surgery in the last month. He states no calf edema/pain. He states no personal history of hypertension, CHF, CVA, thromboembolism, diabetes or vascular disease. Patient History Past Medical History: Diagnosis Date A-fib 2019 Past Surgical History: Procedure Laterality Date SHOULDER ARTHROSCOPY Right 09/02/2022 SHOULDER ARTHROSCOPY Right 12/03/2021 Family History Problem Relation Age of Onset Arthritis Mother Other Mother Family history of No pertinent family history Pulmonary embolism Mother Heart failure Mother Deep vein thrombosis Mother Arthritis Father Stroke Father Arthritis Mother's Sister Arthritis Maternal Grandmother Arthritis Maternal Grandfather Social History Tobacco Use Smoking status: Former Types: Cigarettes Start date: 2024 Tobacco comments: : Vaping Use Vaping status: Never Used Substance Use Topics Alcohol use: Not Currently Drug use: Yes Types: Marijuana Vaping Questions Responses Vaping Use Never User Sexuality and Gender Identity Sexuality Patient's sexual orientation: Straight Legal Information Legal first name: Davy Legal last name: Freedom Legal sex: Male Gender Identity Patient's gender identity: Male Patient's sex assigned at : Male Organ Inventory Organs the patient currently has: Organs present at or expected at to develop: Organs surgically enhanced or constructed: Organs hormonally enhanced or developed: breasts cervix ovaries uterus vagina penis prostate testes Review of Systems REVIEW OF SYSTEMS: ROS as per HPI Physical Exam Physical Exam ED Triage Vitals [07/08/24 0717] Temp Heart Rate Resp BP SpO2 37.1 ??C (98.7 ??F) (!) 143 (!) 22 138/84 96 % Temp Source Heart Rate Source Patient Position BP Location Set FiO2 (O2%) Oral Pulse Oximeter Sitting Right arm -- Physical Exam General: NAD, AOx3 Eyes: PERRL, EOMI HENT: NCAT, moist oral mucosa, trachea midline CV: Irregular rate and rhythm Respiratory: CTAB Abdominal: soft, NTND MSK: moving all extremities spontaneously, no asymmetrical calf edema/erythema/TTP Neuro: Grossly non-focal Skin: Warm, dry Medical Decision Making and ED Course MDM Differential diagnosis includes, but is not limited to ACS, pneumothorax, pulmonary embolism, electrolyte abnormality, cardiac arrhythmia. Patient is afebrile and hemodynamically stable on room air albeit notably tachycardic. Given chest pain and dyspnea and inability to exclude pulmonary embolism in this low risk patient will obtain D-dimer for further risk stratification. I reviewed EKG as below, which is consistent with atrial fibrillation with rapid ventricular response. Patient was treated supportively with 1 L IV NS, 20 mg IV diltiazem and 30 mg p.o. diltiazem. Exam as above is overall reassuring and benign with exception for irregular heart rate and rhythm. On reexamination, patient is well-appearing and in no acute distress. Patient states symptoms have resolved. There is no indication for further emergent evaluation in this otherwise well-appearing patient as above. Patient is provided written and verbal instructions, educational materials, recommendations for outpatient follow up, prescription for metoprolol, return precautions and teach back is performed. Patient states understanding and agreement with plan of care. Patient is discharged home in stable and improved condition. Summary of consult(s) and discussion(s) with other healthcare professional(s): I discussed with revenue cycle consultant first line supervisor, Dr. Christy, who agrees with plan of care for 50 mg p.o. metoprolol succinate once daily Chronic illnesses: Considered patient's past medical history of atrial fibrillation as contributoryto his presenting symptoms Management considered but not performed (medications, diagnostics or observation/admission): I considered admission, but medical evaluation is reassuring and there is no indication for hospitalization at this time. Considered anticoagulation, but [id number] score 0 points Certain portions of this note were created with voice recognition software. As such, please excuse any grammatical errors or word selection errors. I did make an effort to proofread and correct this note prior to signing. If there are any questions, please feel free to contact me. Critical Care Time: Due to a higher probability of a clinically significant and/or life-threateningdeterioration, the patient required my preparedness to intervene emergently. A total of 45 minutes spent in direct patient care with coordinating critical resuscitation, developing a treatment plan, evaluating patient's response to treatment, frequent reassessment, reviewing records, discussing with consultants, reviewing labs, and/or managing patient. This was exclusive of separately billable procedures. ED Course as of 07/08/24 0953 MonJul 08, 2024 0714 EKG shows atrial fibrillation at 162 bpm, QRS 88, QTc 449, no STEMI [JS] 0757 I independently reviewed and interpreted patient's chest x-ray, which demonstrates no focal consolidation, pleural effusion or pneumothorax [JS] 0811 CBC notable for leukocytosis of 12.9, which is likely reactive in the setting of atrial fibrillation with rapid ventricular response. CMP overall reassuring. Magnesium within normal limits at 2.0. D-dimer reassuring at 0.14. Considered CT imaging PE protocol, but given reassuring D-dimer thereis no indication for further evaluation of pulmonary embolism. Initial troponin is reassuring at 9.[JS] 0812 FINDINGS AND IMPRESSION: No consolidation, pleural effusion, or pneumothorax. Normal heart size. No pulmonary vascular congestion. No acute displaced fracture identified. If this radiology report contains a blank impression section, it is an incomplete radiology report.Please contact the interpreting radiologist or applicable radiology division as soon as possible toobtain the completed interpretation. Workstation ID: [id number] Exam Ended: 07/08/24 07:59 Last Resulted: 07/08/24 08:03 [JS] 0948 Repeat troponin reassuring at 8 with a delta of -1 effectively ruling out ACS [JS] ED Course User Index [JS] MD Davy Cabrales : 1980 CSN: [id number] Randy Hernandez MD 07/08/24 0954 Randy Hernandez MD 07/08/24 0954 documented in this encounter Plan of Treatment Not on file documented as of this encounter Procedures * Due to [place] state law, this organization might not be sharing negative HIV tests. Procedure Name Priority Date/Time Associated Diagnosis Comments TROPONIN T HIGH SENSITIVITY Timed 07/08/2024 8:57 AM EDT XR CHEST PORTABLE 1 VIEW STAT 07/08/2024 7:59 AM EDT TROPONIN T HIGH SENSITIVITY Timed 07/08/2024 7:31 AM EDT CBC AUTO DIFFERENTIAL STAT 07/08/2024 7:31 AM EDT D-DIMER, QUANTITATIVE STAT 07/08/2024 7:31 AM EDT MAGNESIUM STAT 07/08/2024 7:31 AM EDT COMPREHENSIVE METABOLIC PANEL STAT 07/08/2024 7:31 AM EDT ECG 12-LEAD STAT 07/08/2024 7:08 AM EDT documented in this encounter Results * Due to [place] state law, this organization might not be sharing negative HIV tests. * Troponin T, High Sensitivity X2 (now + 2hrs) (07/08/2024 8:57 AM EDT) Troponin T High Sensitivity 8 6 - 22 ng/L 07/08/2024 9:45 AM EDT [facility] Comment: Xl-Ubycmlhn-V level of 52 ng/L or higher at 0-hour at presentation is recommended by the ESC 0/1-hour algorithm for identifying patients at high risk for ruling in acute myocardial infarction (AMI) in the appropriate clinical context. Repeat troponin testing 1-3 hours after the initial sample may be helpful in assessing for ongoing myocardial injury. Troponin elevations can be seen in several other non-infarct conditions, and the change (delta) should be evaluated in line with the 4th [place] Definition of AMI. Troponin baseline and serial elevation for a significant delta should be interpreted with clinical presentation, history, signs and symptoms, ECG, and biomarker concentrations. For inpatient setting: Value <12ng/L is considered negative for all genders. 0-1hr: A delta change of <3 will be considered negative/flat if chest pain onset >3 hours 0-3hr: A delta change of <7 will be considered negative/flat Blood Structure of peripheral vein / Unknown Venipuncture / Unknown 07/08/2024 8:57 AM EDT 07/08/2024 9:00 AM EDT us Randy Hernandez MD LAB BLOOD ORDERABLES Final Res ult [facility] [address] [address], [place] [phone] * XR Chest Portable 1 View (07/08/2024 7:59 AM EDT) Anatomical Region Laterality Modality Body Radiographic Tessa ging 07/08/2024 8:03 AM EDT Impressions 07/08/2024 8:03 AM EDT No consolidation, pleural effusion, or pneumothorax. ??Normal heart size. No pulmonary vascular congestion. ??No acute displaced fracture identified. If this radiology report contains a blank impression section, it is an incomplete radiology report. ??Please contact the interpreting radiologist or applicable radiology division as soon as possible to obtain the completed interpretation. ? Workstation ID: [id number] Narrative 07/08/2024 8:03 AM EDT COMPARISON: Radiograph 03/23/2022 FINDINGS AND Resulting Agency Comment [id number] Procedure Note Brayan Rojas MD - 07/08/2024 COMPARISON: Radiograph 03/23/2022 FINDINGS AND IMPRESSION: No consolidation, pleural effusion, or pneumothorax. Normal heart size.No pulmonary vascular congestion. No acute displaced fracture identified. If this radiology report contains a blank impression section, it is anincomplete radiology report. Please contact the interpreting radiologistor applicable radiology division as soon as possible to obtain thecompleted interpretation. Workstation ID: [id number] us Randy Hernandez MD IMG XR PROCEDURES Final Result * D-Dimer, Quantitative (for DVT/PE) (07/08/2024 7:31 AM EDT) Pathologist [facility] D-Dimer, Quantitative 0.14 0.10 - 0.49 mg/L FEU 07/08/2024 8:06 AM EDT [facility] Comment:A D-DIMER VALUE OF < 0.50 ug/FEU/mL HAS A STRONG NEGATIVE PREDICTIVE VALUE FOR EXCLUSION OF PULMONARY EMBOLIC AND DEEP VEIN THROMBOSIS. CLINICAL CORRELATION IS INDICATED. Blood Structure of peripheral vein / Unknown Venipuncture / Unknown 07/08/2024 7:31 AM EDT 07/08/2024 7:37 AM EDT us Randy Hernandez MD LAB BLOOD ORDERABLES Final Res ult Performing Organization Address [facility]/ZIP Co de Phone Number [facility] [address] [address], [place] [phone] * Magnesium (07/08/2024 7:31 AM EDT) MG 2.0 1.5 - 2.5 mg/dL 07/08/2024 8:06 AM EDT [facility] Blood Structure of peripheral vein / Unknown Venipuncture / Unknown 07/08/2024 7:31 AM EDT 07/08/2024 7:37 AM EDT us Randy Hernandez MD LAB BLOOD ORDERABLES Final Res ult Performing Organization Address [facility] Co de Phone Number [facility] [address] [address], [place] [phone] * Troponin T, High Sensitivity X2 (now + 2hrs) (07/08/2024 7:31 AM EDT) Troponin T High Sensitivity 9 6 - 22 ng/L 07/08/2024 8:06 AM EDT [facility] Comment: Ew-Whkuieyy-E level of 52 ng/L or higher at 0-hour at presentation is recommended by the ESC 0/1-hour algorithm for identifying patients at high risk for ruling in acute myocardial infarction (AMI) in the appropriate clinical context. Repeat troponin testing 1-3 hours after the initial sample may be helpful in assessing for ongoing myocardial injury. Troponin elevations can be seen in several other non-infarct conditions, and the change (delta) should be evaluated in line with the 4th [place] Definition of AMI. Troponin baseline and serial elevation for a significant delta should be interpreted with clinical presentation, history, signs and symptoms, ECG, and biomarker concentrations. For inpatient setting: Value <12ng/L is considered negative for all genders. 0-1hr: A delta change of <3 will be considered negative/flat if chest pain onset >3 hours 0-3hr: A delta change of <7 will be considered negative/flat Blood Structure of peripheral vein / Unknown Venipuncture / Unknown 07/08/2024 7:31 AM EDT 07/08/2024 7:37 AM EDT us Randy Hernandez MD LAB BLOOD ORDERABLES Final Res ult [facility] [address] [place] [address] [address] [place] [address], * (ABNORMAL) CMP - Comprehensive Metabolic Panel (07/08/2024 7:31 AM EDT) NA 141 136 - 145 mmol/L 07/08/2024 8:06 AM EDT [facility] K 4.4 3.5 - 5.1 mmol/L 07/08/2024 8:06 AM EDT [facility] Cl 109 98 - 109 mmol/L 07/08/2024 8:06 AM EDT [facility] CO2 22 22 - 32 mmol/L 07/08/2024 8:06 AM EDT [facility] Anion Gap 14 >=0 07/08/2024 8:06 AM EDT [facility] Glucose 124(H) 60 - 99 mg/dL 07/08/2024 8:06 AM EDT [facility] Creatinine 0.85 0.50 - 1.12 mg/dL 07/08/2024 8:06 AM EDT [facility] Calcium 8.5 8.4 - 10.4 mg/dL 07/08/2024 8:06 AM EDT [facility] Total Protein 6.7 6.6 - 8.7 g/dL 07/08/2024 8:06 AM EDT [facility] Albumin 3.9 3.5 - 5.0 g/dL 07/08/2024 8:06 AM EDT [facility] Bilirubin, Total 0.1(L) 0.2 - 1.2 mg/dL 07/08/2024 8:06 AM EDT [facility] Alkaline Phosphatase 101 40 - 129 U/L 07/08/2024 8:06 AM EDT [facility] AST 20 0 - 40 U/L 07/08/2024 8:06 AM EDT [facility] ALT 38 <=41 U/L 07/08/2024 8:06 AM EDT [facility] BUN 12 6 - 20 mg/dL 07/08/2024 8:06 AM EDT [facility] eGFR >90 >=60 mL/min/1. 73m2 07/08/2024 8:06 AM EDT [facility] Comment:The estimated glomer ular filtration rate (eGFR) is calculated using a new formula developed by the NKF-ASN task force to eliminate race-based correction factors. The new formula uses serum/plasma creatinine, age, and gender to determine eGFR. A value below 60mls/min might indicate kidney disease and will be flagged. For additional information, see Sarkar et al, Am J Kidney Dis. 2021;79(2):268- 288, A Unifying Approach for GFR estimation: Recommendations of the NKF-ASN Task Force on Reassessing the Inclusion of Race in Diagnosing Kidney Disease . Globulin, Total 2.8 2.1 - 4.2 g/dL 07/08/2024 8:06 AM EDT [facility] A/G Ratio 1.4(L) 1.5 - 3.0 07/08/2024 8:06 AM EDT [facility] Blood Structure of peripheral vein / Unknown Venipuncture / Unknown 07/08/2024 7:31 AM EDT 07/08/2024 7:37 AM EDT us Randy Hernandez MD LAB BLOOD ORDERABLES Final Res ult [facility] [address] [place] [phone], * (ABNORMAL) CBC Auto Differential (07/08/2024 7:31 AM EDT) [facility] WBC 12.9(H) 4.8 - 10.8 10*3/uL 07/08/2024 7:41 AM EDT [facility] RBC 5.19 4.70 - 6.10 10*6/uL 07/08/2024 7:41 AM EDT [facility] Hemoglobin 15.3 13.7 - 16.5 g/dL 07/08/2024 7:41 AM EDT [facility] Hematocrit 46.8 40.5 - 48.5 % 07/08/2024 7:41 AM EDT [facility] MCV 90.2 80.0 - 94.0 fL 07/08/2024 7:41 AM EDT [facility] MCH 29.5 26.0 - 34.0 pg 07/08/2024 7:41 AM EDT [facility] MCHC 32.7 31.0 - 36.0 g/dL 07/08/2024 7:41 AM EDT [facility] RDW 13.6 12.0 - 15.0 % 07/08/2024 7:41 AM EDT [facility] RDW Standard Deviation 45.1(H) 35.1 - 43.9 fL 07/08/2024 7:41 AM EDT [facility] Platelets 290 140 - 440 10*3/uL 07/08/2024 7:41 AM EDT [facility] MPV 11.3 9.4 - 12.4 fL 07/08/2024 7:41 AM EDT [facility] Neutrophil % 55.5 50.0 - 75.0 % 07/08/2024 7:41 AM EDT [facility] Immature Grans % 0.8 0.0 - 0.9 % 07/08/2024 7:41 AM EDT [facility] Lymphocyte % 31.8 20.0 - 44.0 % 07/08/2024 7:41 AM EDT [facility] Monocyte % 9.4 0.0 - 14.0 % 07/08/2024 7:41 AM EDT [facility] Eosinophil % 1.7 0.0 - 5.0 % 07/08/2024 7:41 AM EDT [facility] Basophil % 0.8 0.0 - 2.0 % 07/08/2024 7:41 AM EDT [facility] Neutrophil # 7.15 1.80 - 7.70 10*3/uL 07/08/2024 7:41 AM EDT [facility] Immature Grans # 0.10(H) 0.00 - 0.03 10*3/uL 07/08/2024 7:41 AM EDT [facility] Lymphocyte # 4.10 1.00 - 4.75 10*3/uL 07/08/2024 7:41 AM EDT [facility] Monocyte # 1.20(H) 0.00 - 0.60 10*3/uL 07/08/2024 7:41 AM EDT [facility] Eosinophil # 0.20 0.00 - 0.80 10*3/uL 07/08/2024 7:41 AM EDT [facility] Basophil # 0.10 0.00 - 0.20 10*3/uL 07/08/2024 7:41 AM EDT [facility] nRBC % 0.0 0 - 0 /100 WBCs 07/08/2024 7:41 AM EDT [facility] nRBC # <0.01 0.00 - 0.13 10*3/uL 07/08/2024 7:41 AM EDT [facility] Blood Structure of peripheral vein / Unknown Venipuncture / Unknown 07/08/2024 7:31 AM EDT 07/08/2024 7:37 AM EDT us Randy Hernandez MD LAB BLOOD ORDERABLES Final Res ult [facility] [address] [place] [id number], * ECG 12 lead (07/08/2024 7:08 AM EDT) Ventricular Rate EKG 162 BPM MUSE EKG Atrial Rate 250 BPM MUSE EKG ND Interval 132 ms MUSE EKG QRS Interval 88 ms MUSE EKG QT Interval 273 ms MUSE EKG QTC Interval 449 ms MUSE EKG P [place] -23 degrees MUSE EKG R [place] -29 degrees MUSE EKG T Wave [place] 73 degrees MUSE EKG 07/08/2024 7:08 AM EDT 07/08/2024 8:47 AM EDT Impressions MUSE EKG - 07/08/2024 8:47 AM EDT Atrial fibrillation Borderline left axis deviation Abnormal R-wave progression, early transition Confirmed by Marcin Valle ([id number]) on 07/08/2024 8:47:43 AM Randy Hernandez MD ECG ORDERABLES Final Result MUSE EKG documented in this encounter Visit Diagnoses Diagnosis Atrial fibrillation with rapid ventricular response (HCC)- Primary documented in this encounter Administered Medications Inactive Administered Medications - up to 3 most recent administrations Medication Order MAR Action Action Date Dose Rate Site dilTIAZem (CARDIZEM) injection 20 mg 20 mg, intravenous, Once, On Mon07/08/24 at 0745, 1 dose, Hold for SBP less than 90 mmHg or HR less than 50 bpm. Given 07/08/2024 7:39 AM EDT 20 mg dilTIAZem (CARDIZEM) tablet 30 mg 30 mg, oral, Once, On Mon07/08/24 at 0745, 1 dose, Hold for SBP less than 90 mmHg or HR less than 50 bpm. Given 07/08/2024 7:38 AM EDT 30 mg sodium chloride 0.9% (NS) bolus 1,000 mL 1,000 mL, intravenous, Once, On Mon07/08/24 at 0715, 1 dose New Bag/Syringe 07/08/2024 7:15 AM EDT 1,000 mL documented in this encounter Active and Recently Administered Medications Times are shown in EDT. Scheduled Medication Order 07/06/2024 07/07/2024 07/08/2024 dilTIAZem (CARDIZEM) injection 20 mg (COMPLETED) 20 mg, intravenous, Once, On Mon07/08/24 at 0745, 1 dose, Hold for SBP less than 90 mmHg or HR less than 50 bpm. 0739 (Given - Provid er: Valery Kennedy RN) dilTIAZem (CARDIZEM) tablet 30 mg (COMPLETED) 30 mg, oral, Once, On Mon07/08/24 at 0745, 1 dose, Hold for SBP less than 90 mmHg or HR less than 50 bpm. 0738 (Given - Provid er: Valery Kennedy RN) sodium chloride 0.9% (NS) bolus 1,000 mL (COMPLETED) 1,000 mL, intravenous, Once, On Mon07/08/24 at 0715, 1 dose 0715 (New Bag/Syring e - Provider: Valery Kennedy RN)0853 (Stopped - Provider: Kelly Warren RN) documented in this encounter Care Teams Operations And Maintenance Manager Relationship Specialty Start Date End Date Rodríguez Mendiola MD [address] [place] [id number] PCP - General Family Medicine 07/08/24 documented as of this encounter
--- OUTSIDE RECORDS SUMMARY | 2024-07-10 16:15 | XMS_ITS | Referral Summary ---
Author Organization [facility] Address [address] [place] [address] Care Team Providers Care Safety Administrator Name Role Phone Rodríguez Mendiola MD Primary Care Provider [phone] Encounters Date Type Department Care Team Description 07/08/2024 7:26 AM EDT - 07/08/2024 10:01 AM EDT [facility] Emergency Department [address] [place] [id number] Randy Hernandez MD Atrial fibrillation with rapid ventricular response (Primary Dx) Discharge Disposition: Home or Self Care () from Last 3 Months Allergies No known active allergies Medications cholecalcifero l (VITAMIN D3) 2,000 unit capsule Take 1 capsule by mouth daily. 3 Active metoprolol succinate XL (TOPROL XL) 50 mg tablet Take 1 tablet (50 mg total) by mouth once a day. 30 tablet 5 Active metoprolol succinate XL (TOPROL XL) 25 mg tablet Take 25 mg by mouth once a day. 07/09/19 25 Discontinued Active Problems Problem Noted Date Diagnosed Date Foot joint pain 10/30/2013 Ankle sprain 10/04/2013 Metatarsal bone fracture 10/04/2013 Social History Tobacco Use Types Packs/Day Years [...] Orientation Straight 02/26/2023 3: 58 PM EST Last Filed Vital Signs Vital Sign Reading [...] Mass Index 38.45 07/08/2024 7:17 AM EDT Plan of Treatment Not on file Procedures * Due to [place] state law, this organization might not be sharing negative HIV tests. Procedure Name Priority Date/Time Associated Diagnosis Comments TROPONIN T HIGH SENSITIVITY Timed 07/08/2024 8:57 AM EDT XR CHEST PORTABLE 1 VIEW STAT 07/08/2024 7:59 AM EDT D-DIMER, QUANTITATIVE STAT 07/08/2024 7:31 AM EDT MAGNESIUM STAT 07/08/2024 7:31 AM EDT TROPONIN T HIGH SENSITIVITY Timed 07/08/2024 7:31 AM EDT COMPREHENSIVE METABOLIC PANEL STAT 07/08/2024 7:31 AM EDT CBC AUTO DIFFERENTIAL STAT 07/08/2024 7:31 AM EDT ECG 12-LEAD STAT 07/08/2024 7:[address] ABDOMEN PELVIS WO CONTRAST Routine 08/30/2016 12:24 PM EDT from Last 3 Months or Most Recently Relevant to Health Maintenance Results * Due to [place] state law, this organization might not be sharing negative HIV tests. * Troponin T, High Sensitivity X2 (now + 2hrs) (07/08/2024 8:57 AM EDT) Only the most recent of2 resultswithin the time period is included. Troponin T High Sensitivity 8 6 - 22 ng/L 07/08/2024 9:45 AM EDT [facility] Comment: Pe-Ourreoiu-E level of 52 ng/L or higher at [...] be evaluated in line with the 4th Copan Definition of AMI. Troponin baseline and serial [...] MD LAB BLOOD ORDERABLES Final Res ult [facility] [address] [place] [address], [place] [phone] * XR Chest Portable 1 View (07/08/2024 [...] obtain the completed interpretation. ? Workstation ID: [id number] Narrative 07/08/2024 8:03 AM EDT COMPARISON: Radiograph 03/23/2022 FINDINGS AND Resulting Agency Comment [id number] Procedure Note Brayan Rojas MD - 07/08/2024 COMPARISON: Radiograph 03/23/2022 FINDINGS AND IMPRESSION: No consolidation, pleural effusion, or pneumothorax. Normal heart size.No pulmonary vascular congestion. No acute displaced fracture identified. If this radiology report contains a blank impression section, it is anincomplete radiology report. Please contact the interpreting radiologistor applicable radiology division as soon as possible to obtain thecompleted interpretation. Workstation ID: [id number] us Randy Hernandez MD IMG XR PROCEDURES Final Result * (ABNORMAL) CBC Auto Differential (07/08/2024 7:31 AM EDT) WBC 12.9(H) 4.8 - 10.8 10*3/uL 07/08/2024 7:41 AM EDT [facility] RBC 5.19 4.70 - 6.10 10*6/uL 07/08/2024 7:41 AM EDT [facility] Hemoglobin 15.3 13.7 - 16.5 g/dL 07/08/2024 7:41 AM EDT [facility] Hematocrit 46.8 40.5 - 48.5 % 07/08/2024 7:41 AM EDT [facility] MCV 90.2 80.0 - 94.0 fL 07/08/2024 7:41 AM EDT [facility] MCH 29.5 26.0 - 34.0 pg 07/08/2024 7:41 AM EDT [facility] MCHC 32.7 31.0 - 36.0 g/dL 07/08/2024 7:41 AM EDT [facility] RDW 13.6 12.0 - 15.0 % 07/08/2024 7:41 AM EDT [facility] RDW Standard Deviation 45.1(H) 35.1 - 43.9 fL 07/08/2024 7:41 AM EDT [facility] Platelets 290 140 - 440 10*3/uL [facility]24 [facility] MPV 11.3 9.4 - 12.4 fL 07/08/2024 7:41 AM EDT [facility] Neutrophil % 55.5 50.0 - 75.0 % 07/08/2024 7[facility] Immature Grans % 0.8 0.0 - 0.9 % 07/08/2024 7:41 AM EDT [facility] Lymphocyte % 31.8 20.0 - 44.0 % 07/08/2024 7[facility] Monocyte % 9.4 0.0 - 14.0 % 07/08/2024 7:41 AM EDT [facility] Eosinophil % 1.7 0.0 - 5.0 % 07/08/2024 7:41 AM EDT [facility] Basophil % 0.8 0.0 - 2.0 % 07/08/2024 7:41 AM EDT [facility] Neutrophil # 7.15 1.80 - 7.70 10*3/uL 07/08/2024 7:41 AM EDT [facility] Immature Grans # 0.10(H) 0.00 - 0.03 10*3/uL 07/08/2024 7:41 AM EDT [facility] Lymphocyte # 4.10 1.00 - 4.75 10*3/uL 07/08/2024 7:41 AM EDT [facility] Monocyte # 1.20(H) 0.00 - 0.60 10*3/uL 07/08/2024 7:41 AM EDT [facility] Eosinophil # 0.20 0.00 - 0.80 10*3/uL 07/08/2024 7:41 AM EDT [facility] Basophil # 0.10 0.00 - 0.20 10*3/uL 07/08/2024 7:41 AM EDT [facility] nRBC % 0.0 0 - 0 /100 WBCs 07/08/2024 7:41 AM EDT [facility] nRBC # <0.01 0.00 - 0.13 10*3/uL 07/08/2024 7:41 AM EDT [facility] Blood Structure of peripheral vein / Unknown Venipuncture / Unknown 07/08/2024 7:31 AM EDT 07/08/2024 7:37 AM EDT us Randy Hernandez MD LAB BLOOD ORDERABLES Final Res ult [facility] [address] [facility] [address] [place] [address], * D-Dimer, Quantitative (for DVT/PE) (07/08/2024 7:31 AM EDT) [facility] D-Dimer, Quantitative 0.14 0.10 - 0.49 mg/L FEU 07/08/2024 8:06 AM EDT [facility] Comment:A D-DIMER VALUE OF < 0.50 ug/FEU/mL HAS A STRONG NEGATIVE PREDICTIVE VALUE FOR EXCLUSION OF PULMONARY EMBOLIC AND DEEP VEIN THROMBOSIS. CLINICAL CORRELATION IS INDICATED. Blood Structure of peripheral vein / Unknown Venipuncture / Unknown 07/08/2024 7:31 AM EDT 07/08/2024 7:37 AM EDT us Randy Hernandez MD LAB BLOOD ORDERABLES Final Res ult Performing Organization Address [facility]/ZIP Co de Phone Number [facility] [address] [address], [place] [phone] * Magnesium (07/08/2024 7:31 AM EDT) MG 2.0 1.5 - 2.5 mg/dL 07/08/2024 8:06 AM EDT [facility] Blood Structure of peripheral vein / Unknown Venipuncture / Unknown 07/08/2024 7:31 AM EDT 07/08/2024 7:37 AM EDT us Randy Hernandez MD LAB BLOOD ORDERABLES Final Res ult Performing Organization Address [facility] Co de Phone Number [facility] [address] [address], [place] [phone] * (ABNORMAL) CMP - Comprehensive Metabolic Panel (07/08/2024 7:31 AM EDT) NA 141 136 - 145 mmol/L 07/08/2024 8:06 AM EDT [facility] K 4.4 3.5 - 5.1 mmol/L 07/08/2024 8:06 AM EDT [facility] Cl 109 98 - 109 mmol/L 07/08/2024 8:06 AM EDT [facility] CO2 22 22 - 32 mmol/L 07/08/2024 8:06 AM EDT [facility] Anion Gap 14 >=0 07/08/2024 8:06 AM EDT [facility] Glucose 124(H) 60 - 99 mg/dL 07/08/2024 8:06 AM EDT [facility] Creatinine 0.85 0.50 - 1.12 mg/dL 07/08/2024 8:06 AM EDT [facility] Calcium 8.5 8.4 - 10.4 mg/dL 07/08/2024 8:06 AM EDT [facility] Total Protein 6.7 6.6 - 8.7 g/dL 07/08/2024 8:06 AM EDT [facility] Albumin 3.9 3.5 - 5.0 g/dL 07/08/2024 8:06 AM [facility] Bilirubin, Total 0.1(L) 0.2 - 1.2 mg/dL 07/08/2024 8:06 AM T [facility] Alkaline Phosphatase 101 40 - 129 U/L 07/08/2024 8:06 AM EDT [facility] AST 20 0 - 40 U/L 07/08/2024 8:06 AM T [facility] ALT 38 <=41 U/L 07/08/2024 8:06 AM [facility] BUN 12 6 - 20 mg/dL 07/08/2024 8:06 AM [facility] eGFR >90 >=60 mL/min/1. 73m2 07/08/2024 8:06 AM [facility] Comment:The estimated glomer ular filtration [...] 2.1 - 4.2 g/dL 07/08/2024 8:06 AM [facility] A/G Ratio 1.4(L) 1.5 - 3.0 07/08/2024 8:06 AM [facility] Blood Structure of peripheral vein / Unknown Venipuncture / Unknown 07/08/2024 7:31 AM EDT 07/08/2024 7:37 AM EDT us Randy Hernandez MD LAB BLOOD ORDERABLES Final Res ult Performing Organization Address [facility] Co de Phone Number [facility] [address] [place] [address], [place] [phone] * ECG 12 lead (07/08/2024 7:08 AM EDT) Ventricular Rate EKG 162 BPM MUSE EKG Atrial Rate 250 BPM MUSE EKG MI Interval 132 ms MUSE EKG QRS Interval 88 ms MUSE EKG QT Interval 273 ms MUSE EKG QTC Interval 449 ms MUSE EKG P [place] -23 degrees MUSE EKG R [place] -29 degrees MUSE EKG T Wave [place] 73 degrees MUSE EKG 07/08/2024 7:08 AM EDT 07/08/2024 8:47 AM EDT Impressions MUSE EKG - 07/08/2024 8:47 AM EDT Atrial fibrillation Borderline left axis deviation Abnormal R-wave progression, early transition Confirmed by Marcin Valle ([id number]) on 07/08/2024 8:47:43 AM us Randy Hernandez MD ECG ORDERABLES Final Result Performing Organization Address [facility] de Phone Number MUSE EKG * CT Abdomen Pelvis without Contrast (08/30/2016 12:24 PM EDT) Anatomical Region Laterality Modality Body Computed Tomogra phy 08/30/2016 1:54 PM EDT Narrative 08/30/2016 2:14 PM EDT ? DEPARTMENT OF RADIOLOGY Patient: DAVY GUILLEN ? Unit #: [id number] Ordering MD: ESHA FERGUSON PA-C ?: 1980 Procedure: CT Abdomen & Pelvis ?Age: 35 Location: [facility] ? Exam Date: 08/30/16 Status: REG ER ?Room/Bed: Primary MD: ? Patient ?Order: [id number] Additional Copy: ??ESHA FERGUSON PA-C - INDICATION: Right back and flank pain. TECHNIQUE: ??Axial multidetector CT images were obtained through the abdomen and pelvis without intravenous contrast. ??Reformatted coronal and sagittal images were submitted to PACS and reviewed. DOSE: ??DLP: 876 mGy-cm COMPARISON: None. FINDINGS: Visualized lung bases are clear. ??Visualized portions of the heart and pericardium are unremarkable. Assessment of the solid visceral structures of the abdomen and pelvis is limited without IV contrast. Liver: ??Allowing for the ipw-hsruxykf-tflzyhmo technique, the liver demonstrates homogeneous attenuation without focal lesion. Liver has a mildly low-attenuation, consistent with hepatic steatosis. There is no intra or extrahepatic biliary ductal dilation. Gallbladder: ??The gallbladder has a thin wall without radiopaque stones. Pancreas: ??The pancreas demonstrates normal bulk without ductal dilation. Spleen: ??The spleen does not appear enlarged. Adrenal Glands: ??The right and left adrenal glands are thin and have no discrete nodularity. Kidneys: ??The right and left kidneys demonstrate homogeneous appearance without suggestion of solid renal mass (sensitivity for detection is limited without IV contrast). A right-sided nephroureteral stent is in situ, and there is minimal proximal ureteral wall thickening associated with this medially adjacent to the UPJ (series 2, image 48), but no definite stone seen along the course of the catheter. No definite renal stone, or evidence of hydronephrosis or hydroureter. Bowel: ??There is no abnormal small bowel dilation. ??The large bowel loops appear grossly within normal limits. ??Appendix is not confidently identified. Persisting history of appendectomy. Bladder: ??The bladder appears grossly unremarkable. Prostate/Seminal Vesicles: CT provides very limited assessment of these structures, which are grossly unremarkable. Vascular: No significant vascular calcification or aneurysmal dilation of the abdominal aorta. There is no mesenteric, retroperitoneal, or pelvic lymphadenopathy or free fluid. Osseous Structures: Examination of osseous structures do not show suspicious lytic or blastic abnormalities. L5-S1 degenerative disc changes are noted. IMPRESSION: 1. No renal, ureteral, or bladder stone, within the limits of this examination as described above. 2. Retained right-sided nephroureteral stent but which remains appropriately positioned. It was noted from the patient's intake paperwork that this was placed approximately 3 years ago. ??Proximal pigtail is next to the right UPJ. ??No associated hydronephrosis or hydroureter. 3. Mildly fatty liver. POI: Damaris Michele [place] ELECTRONICALLY SIGNED BY: ??ANALI HUERTAS MD 08/30/2016 2:12 PM Procedure Note Provider, Historical Conversion - 01/13/2023 DEPARTMENTOF RADIOLOGY Reji t: DAVY GUILLEN Unit #:[id number] Ordering MD: ESHA FERGUSON PA-C :1980 Procedure: CT Abdomen & Pelvis Age:35 Location: [facility] ExamDate: 08/30/16 Status: REG ERRoom/Bed: Primary MD: PatientAcct #: [id number] Order:[id number] Additional Copy: ESHA FERGUSON PA-C - INDICATION: Right back and flank pain. TECHNIQUE: Axial multidetector CT images were obtained through theabdomen and pelvis without intravenous contrast. Reformatted coronal and sagittal images were submitted to PACS and reviewed. DOSE: DLP: 876 mGy-cm COMPARISON: None. FINDINGS: Visualized lung bases are clear. Visualized portions of the heart andpericardium are unremarkable. Assessment of the solid visceral structures of the abdomen and pelvis islimited without IV contrast. Liver: Allowing for the fcc-hukebmdy-qhfomriz technique, the liverdemonstrates homogeneous attenuation without focal lesion. Liver has a mildly low-attenuation, consistent with hepatic steatosis.There is no intra or extrahepatic biliary ductal dilation. Gallbladder: The gallbladder has a thin wall without radiopaquestones. Pancreas: The pancreas demonstrates normal bulk without ductaldilation. Spleen: The spleen does not appear enlarged. Adrenal Glands: The right and left adrenal glands are thin and have nodiscrete nodularity. Kidneys: The right and left kidneys demonstrate homogeneous appearancewithout suggestion of solid renal mass (sensitivity for detection is limited without IV contrast). A right-sided nephroureteralstent is in situ, and there is minimal proximal ureteral wall thickening associated with this medially adjacent to the UPJ (series2, image 48), but no definite stone seen along the course of the catheter. No definite renal stone, or evidence of hydronephrosis orhydroureter. Bowel: There is no abnormal small bowel dilation. The large bowel loopsappear grossly within normal limits. Appendix is not confidently identified. Persisting history of appendectomy. Bladder: The bladder appears grossly unremarkable. Prostate/Seminal Vesicles: CT provides very limited assessment of thesestructures, which are grossly unremarkable. Vascular: No significant vascular calcification or aneurysmal dilation ofthe abdominal aorta. There is no mesenteric, retroperitoneal, or pelvic lymphadenopathy orfree fluid. Osseous Structures: Examination of osseous structures do not showsuspicious lytic or blastic abnormalities. L5-S1 degenerative disc changes are noted. IMPRESSION: 1. No renal, ureteral, or bladder stone, within the limits of thisexamination as described above. 2. Retained right-sided nephroureteral stent but which remainsappropriately positioned. It was noted from the patient's intake paperwork that this was placed approximately 3 years ago. Proximalpigtail is next to the right UPJ. No associated hydronephrosis or hydroureter. 3. Mildly fatty liver. POI: [place] ELECTRONICALLY SIGNED BY: ANALI HUERTAS MD 08/30/2016 2:12 [address] IM[address] PROCEDURES Final Result from Last 3 Months or Most Recently Relevant to Health Maintenance Insurance GENERIC on file [facility] [place] [address] [employer] Care Teams Safety Administrator Relationship Specialty Start Date End Date Rodríguez Mendiola MD [facility] [address] [place] [address] PCP - General Family Medicine 07/08/24
--- OUTSIDE RECORDS SUMMARY | 2024-07-10 16:15 | XMS_ITS | Clinical Summary ---
Author Organization [facility] Address [address] [place] [address] Care Team Providers Care Jacquard Fixer Name Role Phone Rodríguez Mendiola MD Primary Care Provider [phone] Allergies No known active allergies Medications cholecalcifero [...] Ankle sprain 10/04/2013 Metatarsal bone fracture 10/04/2013 Encounters Date Type Department Care Team Description 07/08/2024 7:26 AM EDT - 07/08/2024 10:01 AM EDT Emergency [facility] Emergency Department [address] [place] [id number] Randy Hernandez MD Atrial fibrillation with rapid ventricular response (Primary Dx) Discharge Disposition: Home or Self Care () from Last 3 Months Family History Medical History Relation Name Comments Arthritis Father Stroke Father Arthritis Maternal Grandfather Arthritis Maternal Grandmother Arthritis Mother Deep vein thrombosis Mother Heart failure Mother Other Mother Family history of No pertinent family history Pulmonary embolism Mother Arthritis Mother's Sister Relation Name Status Comments Father Maternal Grandfather Maternal Grandmother Mother Mother's Sister Social History Tobacco Use Types Packs/Day Years [...] 07/08/2024 7:17 AM EDT Plan of Treatment Health Maintenance Due Date Last Done Comments HIV Screening 1982 Hepatitis C Screening 1982 Varicella Vaccines (1 of 2 - 13+ 2-dose series) 09/24/1995 Hepatitis B Vaccines (1 of 3 - 19+ 3-dose series) 2001 DTaP,Tdap,and Td Vaccines (1 - Tdap) 2004 COVID-19 Vaccine (3 - 2023-2 5 season) 2023 09/03/2020, 08/12/2020 Influenza Vaccine (#1) 2023 Alcohol/Substance Use Screening 04/17/2024 Depression Screening and Follow-Up 04/17/2024 Social Drivers of Health Annual Screening 04/17/2024 RSV Vaccine (60+ years old and patients) (1 - 1-dose 75+ series) 2057 Abdominal Aortic Aneurysm (AAA) Screening Completed 08/30/2016 Pneumococcal Vaccine: Pediatric (0-5 Years) and At-Risk Patients (6-50 Years) Aged Out No longer eligible based on patient's age to complete this topic Procedures * Due to [place] state law, this organization might not be [...] to Health Maintenance Results * Due to [place] state law, this organization might not be sharing negative HIV tests. * Troponin T, High Sensitivity X2 (now + 2hrs) (07/08/2024 8:57 AM EDT) Only the most recent of2 resultswithin the time period is included. Troponin T High Sensitivity 8 6 - 22 ng/L 07/08/2024 9:45 AM EDT [facility] Comment: Ep-Qyrtfhtl-H level of 52 ng/L or higher at [...] be evaluated in line with the 4th [place]rist[place] Definition of AMI. Troponin baseline and serial [...] MD LAB BLOOD ORDERABLES Final Res ult [facility] [address] [place] [address] [address] [address], [place] [phone] * XR Chest Portable 1 View (07/08/2024 [...] obtain the completed interpretation. ? Workstation ID: [id number] Narrative 07/08/2024 8:03 AM EDT COMPARISON: Radiograph 03/23/2022 FINDINGS AND Resulting Agency Comment [id number] Procedure Note Brayan Rojas MD - 07/08/2024 COMPARISON: Radiograph 03/23/2022 FINDINGS AND IMPRESSION: No consolidation, pleural effusion, or pneumothorax. Normal heart size.No pulmonary vascular congestion. No acute displaced fracture identified. If this radiology report contains a blank impression section, it is anincomplete radiology report. Please contact the interpreting radiologistor applicable radiology division as soon as possible to obtain thecompleted interpretation. Workstation ID: [id number] us Randy Hernandez MD IMG XR PROCEDURES Final Result * (ABNORMAL) CBC Auto Differential (07/08/2024 7:31 AM EDT) WBC 12.9(H) 4.8 - 10.8 10*3/uL 07/08/2024 7:41 AM EDT [facility] RBC 5.19 4.70 - 6.10 10*6/uL 07/08/2024 7:41 AM EDT [facility] Hemoglobin 15.3 13.7 - 16.5 g/dL 07/08/2024 7:41 AM EDT [facility] Hematocrit 46.8 40.5 - 48.5 % 07/08/2024 7:41 AM EDT [facility] MCV 90.2 80.0 - 94.0 fL 07/08/2024 7:41 AM EDT [facility] MCH 29.5 26.0 - 34.0 pg 07/08/2024 7:41 AM EDT [facility] MCHC 32.7 31.0 - 36.0 g/dL 07/08/2024 7:41 AM EDT [facility] RDW 13.6 12.0 - 15.0 % 07/08/2024 7:41 AM EDT [facility] RDW Standard Deviation 45.1(H) 35.1 - 43.9 fL 07/08/2024 7:41 AM EDT [facility] Platelets 290 140 - 440 10*3/uL 07/08/2024 7:41 AM EDT [facility] MPV 11.3 9.4 - 12.4 fL 07/08/2024 7:41 AM EDT [facility] Neutrophil % 55.5 50.0 - 75.0 % 07/08/2024 7:41 AM EDT [facility] Immature Grans % 0.8 0.0 - 0.9 % 07/08/2024 7:41 AM EDT [facility] Lymphocyte % 31.8 20.0 - 44.0 % 07/08/2024 7:41 AM EDT [facility] Monocyte % 9.4 0.0 - 14.0 % 07/08/2024 7:41 AM EDT [facility] Eosinophil % 1.7 0.0 - 5.0 % 07/08/2024 7:41 AM EDT [facility] Basophil % 0.8 0.0 - 2.0 % 07/08/2024 7:41 AM EDT [facility] Neutrophil # 7.15 1.80 - 7.70 10*3/uL 07/08/2024 7:41 AM EDT [facility] Immature Grans # 0.10(H) 0.00 - 0.03 10*3/uL 07/08/2024 7:41 AM EDT [facility] Lymphocyte # 4.10 1.00 - 4.75 10*3/uL 07/08/2024 7:41 AM EDT [facility] Monocyte # 1.20(H) 0.00 - 0.60 10*3/uL 07/08/2024 7:41 AM EDT [facility] Eosinophil # 0.20 0.00 - 0.80 10*3/uL 07/08/2024 7:41 AM EDT [facility] Basophil # 0.10 0.00 - 0.20 10*3/uL 07/08/2024 7:41 AM EDT [facility] nRBC % 0.0 0 - 0 /100 WBCs 07/08/2024 7:41 AM EDT [facility] nRBC # <0.01 0.00 - 0.13 10*3/uL 07/08/2024 7:41 AM EDT [facility] Blood Structure of peripheral vein / Unknown Venipuncture / Unknown 07/08/2024 7:31 AM EDT 07/08/2024 7:37 AM EDT us Randy Hernandez MD LAB BLOOD ORDERABLES Final Res ult Performing Organization Address [facility] Co de Phone Number [facility] [address] [address], * D-Dimer, Quantitative (for DVT/PE) (07/08/2024 7:31 AM EDT) D-Dimer, Quantitative 0.14 0.10 - 0.49 mg/L FEU 07/08/2024 8:06 AM EDT [facility] Comment:A D-DIMER VALUE OF < 0.50 ug/FEU/mL HAS A STRONG NEGATIVE PREDICTIVE VALUE FOR EXCLUSION OF PULMONARY EMBOLIC AND DEEP VEIN THROMBOSIS. CLINICAL CORRELATION IS INDICATED. Blood Structure of peripheral vein / Unknown Venipuncture / Unknown 07/08/2024 7:31 AM EDT 07/08/2024 7:37 AM EDT us Randy Hernandez MD LAB BLOOD ORDERABLES Final Res ult Performing Organization Address [facility] Co de Phone Number [facility] [address] [place] [id number], [place] [phone] * Magnesium (07/08/2024 7:31 AM EDT) MG 2.0 1.5 - 2.5 mg/dL 07/08/2024 8:06 AM EDT [facility] Blood Structure of peripheral vein / Unknown Venipuncture / Unknown 07/08/2024 7:31 AM EDT 07/08/2024 7:37 AM EDT us Randy Hernandez MD LAB BLOOD ORDERABLES Final Res ult [facility] [address] [place] [address], * (ABNORMAL) CMP - Comprehensive Metabolic Panel (07/08/2024 7:31 AM EDT) NA 141 136 - 145 mmol/L 07/08/2024 8:06 AM EDT [facility] K 4.4 3.5 - 5.1 mmol/L 07/08/2024 8:06 AM EDT [facility] Cl 109 98 - 109 mmol/L 07/08/2024 8:06 AM EDT [facility] CO2 22 22 - 32 mmol/L 07/08/2024 8:06 AM EDT [facility] Anion Gap 14 >=0 07/08/2024 8:06 AM EDT [facility] Glucose 124(H) 60 - 99 mg/dL 07/08/2024 8:06 AM EDT [facility] Creatinine 0.85 0.50 - 1.12 mg/dL 07/08/2024 8:06 AM EDT [facility] Calcium 8.5 8.4 - 10.4 mg/dL 07/08/2024 8:06 AM EDT [facility] Total Protein 6.7 6.6 - 8.7 g/dL 07/08/2024 8:06 AM EDT [facility] Albumin 3.9 3.5 - 5.0 g/dL 07/08/2024 8:06 AM EDT [facility] Bilirubin, Total 0.1(L) 0.2 - 1.2 mg/dL 07/08/2024 8:06 AM EDT [facility] Alkaline Phosphatase 101 40 - 129 U/L 07/08/2024 8:06 AM EDT [facility] AST 20 0 - 40 U/L 07/08/2024 8:06 AM EDT [facility] ALT 38 <=41 U/L 07/08/2024 8:06 AM EDT [facility] BUN 12 6 - 20 mg/dL 07/08/2024 8:06 AM EDT [facility] eGFR >90 >=60 mL/min/1. 73m2 07/08/2024 8:06 AM EDT [facility] Comment:The estimated glomer ular filtration rate (eGFR) is calculated using a new formula developed by the NKF-ASN task force to eliminate race-based correction factors. The new formula uses serum/plasma creatinine, age, and gender to determine eGFR. A value below 60mls/min might indicate kidney disease and will be flagged. For additional information, see Antonina et al, Am J Kidney Dis. 2021;79(2):268- 288, A Unifying Approach for GFR estimation: Recommendations of the NKF-ASN Task Force on Reassessing the Inclusion of Race in Diagnosing Kidney Disease . Globulin, Total 2.8 2.1 - 4.2 g/dL 07/08/2024 8:06 AM EDT [facility] A/G Ratio 1.4(L) 1.5 - 3.0 07/08/2024 8:06 AM EDT [facility] Blood Structure of peripheral vein / Unknown Venipuncture / Unknown 07/08/2024 7:31 AM EDT 07/08/2024 7:37 AM EDT us Randy Hernandez MD LAB BLOOD ORDERABLES Final Res ult [facility] [address] [place] [id number], * ECG 12 lead (07/08/2024 7:08 AM EDT) Ventricular Rate EKG 162 BPM MUSE EKG Atrial Rate 250 BPM MUSE EKG MI Interval 132 ms MUSE EKG QRS Interval 88 ms MUSE EKG QT Interval 273 ms MUSE EKG QTC Interval 449 ms MUSE EKG P Golden -23 degrees MUSE EKG R Golden -29 degrees MUSE EKG T Wave Golden 73 degrees MUSE EKG 07/08/2024 7:08 AM EDT 07/08/2024 8:47 AM EDT Impressions MUSE EKG - 07/08/2024 8:47 AM EDT Atrial fibrillation Borderline left axis deviation Abnormal R-wave progression, early transition Confirmed by Marcin Valle ([id number]) on 07/08/2024 8:47:43 AM us Randy Hernandez MD ECG ORDERABLES Final Result MUSE EKG * CT Abdomen Pelvis without Contrast (08/30/2016 12:24 PM EDT) Anatomical Region Laterality Modality Body Computed Tomogra phy 08/30/2016 1:54 PM EDT Narrative 08/30/2016 2:14 PM EDT ? DEPARTMENT OF RADIOLOGY Patient: DAVY GUILLEN Corazon ? Unit #: [id number] Ordering MD: ESHA FERGUSON PA-C ?: 1980 [...] without IV contrast. Liver: ??Allowing for the tna-vqcnmfvp-bdqvsrdr technique, the liver demonstrates homogeneous attenuation without [...] or hydroureter. 3. Mildly fatty liver. POI: [place], [place] ELECTRONICALLY SIGNED BY: ??ANALI HUERTAS MD 08/30/2016 2:12 PM Procedure Note Provider, Historical Conversion - 01/13/2023 DEPARTMENTOF RADIOLOGY Reji t: DAVY GUILLEN Unit #:[id number] Ordering MD: ESHA FERGUSON PA-C :1980 Procedure: CT Abdomen & Pelvis Age:35 Location: [facility] ExamDate: 08/30/16 Status: REG ERRoom/Bed: Primary MD: Lakhwinder #: [id number] Order:[id number] Additional Copy: ESHA FERGUSON PA-C - [...] without IV contrast. Liver: Allowing for the sbr-exgihxbz-ukxbagrz technique, the liverdemonstrates homogeneous attenuation without focal [...] POI: Damaris Michele [place] ELECTRONICALLY SIGNED BY: ANALI HUERTAS MD 08/30/2016 2:[address] PROCEDURES Final Result from Last 3 Months or Most Recently Relevant to Health Maintenance Insurance GENERIC on file [employer] Care Teams Jacquard Fixer Relationship Specialty Start Date End Date Rodríguez Mendiola MD [address] [place] [id number] PCP - General Family Medicine 07/08/24
== END 2024-07-10 15:06 | disposition home or self-care (01) ==
LOC: HO.HMCFM 13:40
PROVIDERS: PCP Nurse Practitioner Family; Visit Provider Nurse Practitioner Family
DX: I48.91 Unspecified atrial fibrillation (principal); R06.00 Dyspnea, unspecified; R73.03 Prediabetes; Z13.9 Encounter for screening, unspecified

== ENCOUNTER → 2024-07-10 13:39 | Outpatient (BNVA) | payer OTHER, SELFPAY | PROVIDERS: PCP Nurse Practitioner Family; Visit Provider Nurse Practitioner Family | DX: I48.91 Unspecified atrial fibrillation (principal); R06.00 Dyspnea, unspecified; R73.03 Prediabetes | CPT/HCPCS: 83036; 93005; 99212 ==

== ENCOUNTER 2024-07-10 15:27 | Inpatient (IN) | payer OTHER, SELFPAY ==
[2024-07-10] VITALS (11 sets, daily range): BP systolic 89–142; BP diastolic 62–88; PULSE 91–176; RESP 18–21; TEMP 36.2–36.6; O2SAT 93–97; BMI 37.5; BMI 39.0
--- NOTE | ~2024-07-10 | XR_ITS ---
EXAMINATION: XR CHEST CLINICAL INFORMATION: shortness of breath COMPARISON: None available. TECHNIQUE: Frontal view of the chest was obtained. FINDINGS: The cardiac, hilar, and mediastinal contours are normal. The lungs are clear bilaterally. No pneumothorax or effusion. No focal osseous or soft tissue abnormality. XR/XR chest 1V IMPRESSION: No active pulmonary disease. Electronically signed by: Jose Paulino MD 07/10/2024 04:14 PM EDT
--- NOTE | 2024-07-10 15:29 | ECG_ITS ---
Test Reason : pain Blood Pressure : */* mmHG Vent. Rate : 166 BPM Atrial Rate : * BPM P-R Int : * ms QRS Dur : 90 ms QT Int : 280 ms P-R-T Axes : * -12 56 degrees QTcB Int : 465 ms Atrial fibrillation with rapid ventricular response Abnormal ECG No previous ECGs available Referred By: Carl Joseph Electronically Signed By:
--- NOTE | 2024-07-10 15:36 | ED_ITS ---
HPI - General Adult General Chief complaint: Arrhythmia/Palpitations Stated complaint: sent [facility] office Afib / chest pain Time Seen by Provider: 07/10/24 16:04 Source: patient Mode of arrival: ambulatory Limitations: no limitations History of Present Illness ED Provider: Dr. Jasen Calvo HPI narrative: 43-year-old male with a history of atrial fibrillation and prediabetes who presents emergency department for evaluation of chest pain and rapid heart rate. Patient states that 6 years prior he was diagnosed with atrial fibrillation in his went on metoprolol 25 mg daily with no recurrence of his symptoms. The patient states that on 07/06/2024 (4 days prior to evaluation). Patient states that he had associated shortness of breath, diaphoresis, left- sided chest pain. He states that on 07/08/2024 (2 days prior to evaluation) he went to [facility]. He states that he was given diltiazem IV with control of his rate. His metoprolol was increased from 25 mg a day to 50 mg a day. He states that shortly after he left the hospital if he believes that his heart rate got fast again. He had a 2 day follow-up with his PCP, Dr. Ugalde. He was noted to have a rapid heart rate of 174 beats per minute. The patient refused ambulance transport and drove himself to the emergency department. Here in the emergency department the patient was awake and alert, diaphoretic and noted to have a heart rate of 170 beats per minute. He currently is complaining of left-sided chest heaviness which is 7/10. It does radiate to his neck. He does complain of shortness of breath. 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 Related Data Home Medications ?Medication ?Instructions ?Recorded ?Confirmed cholecalciferol (vitamin D3) 50 50 mcg PO DAILY 10/25/22 07/10/24 mcg (2,000 unit) capsule metoprolol succinate 50 mg 50 mg PO DAILY 07/10/24 07/10/24 tablet,extended release 24 hr Previous Rx's ?Medication ?Instructions ?Recorded acetaminophen 500 mg capsule 1,000 mg (2 x 500 mg) PO Q6H PRN 10/18/23 pain (scale score 7-10) #30 caps cyclobenzaprine 10 mg tablet 10 mg PO BEDTIME #10 tabs 10/18/23 ibuprofen 800 mg tablet 800 mg PO Q8H #60 tabs 10/18/23 lidocaine 5 % topical patch 1 patch topical DAILY #15 ea 10/18/23 Allergies Allergy/AdvReac Type Severity Reaction Status Date / Time No Known Allergies Allergy Verified 07/10/24 15:39 Review of Systems 2 Review of Systems: Yes all other systems are reviewed and are negative [facility] Past Medical History [facility] Narrative: Social history: He denies tobacco and alcohol use. He does smoke marijuana. Medical History Marijuana dependence Kidney stones Encounter to establish care Surgical History History of esophagogastroduodenoscopy (EGD) History of appendectomy H/O shoulder surgery Family History Family History Mother Hypertension CHF (congestive heart failure) Father Stroke Social History Social History (Updated 11/17/23 @ 13:24 by Stacey Lui [facility]) Housing: House Are you a primary child care supervisor to a significant other at home: No Do you presently have visiting nurse or other home services: No Patient Tobacco Use Status: Former Tobacco user Tobacco use type: Cigarette Cigarette Packs Per Day: 0.5 Cigarettes Per Day: 10.0 Years Smoked: 25 Smoked in Last 30 Days: Yes e-Cigarette/Vaping Use: Never Used Use of substances other than those prescribed or required for medical reasons: Yes Substance Use Type: Marijuana Advance Directives: Yes Advance Directives Information Provided: Yes Advance Directives on File: No Do you have a plan to hurt others: No Plan service: Yes Current occupational status: employed Cognitive needs: No Hearing needs: No Vision needs: No Physical Exam ED Vital Signs: Vital Signs - 24 hr 07/10/24 15:36 07/10/24 16:00 07/10/24 16:00 Temperature 98 F Pulse Rate 91 176 H 160 H Respiratory Rate 19 20 Blood Pressure 133/71 99/75 Pulse Oximetry 97 96 Oxygen Delivery Method Room Air 07/10/24 16:36 07/10/24 17:03 07/10/24 17:50 Temperature 97.2 F Pulse Rate 168 H 115 H 108 H Respiratory Rate 18 21 H Blood Pressure 142/70 H 104/62 Pulse Oximetry 94 93 Oxygen Delivery Method Room Air Room Air 07/10/24 18:18 Temperature Pulse Rate 134 H Respiratory Rate Blood Pressure 128/79 Pulse Oximetry Oxygen Delivery Method BMI result Body Mass Index 37.5 Exam: General: Awake, alert in no distress Head: Normocephalic, atraumatic EENT: PERRL, Lids normal, sclera normal, conjunctiva normal, nose normal , ears normal, throat without erythema or exudates Neck: Supple, no adenopathy Lung: breath sounds symmetric, no wheezing, rales or rhonchi Chest: symmetric movement, nontender Heart: Rapid heart rate with irregularly irregular rhythm, normal S1, S2 no murmurs or rubs Abdomen: soft, non-tender, nondistended, normal bowel sounds Back: no vertebral tenderness, no CVAT Extremities: no deformities, moves all extremities symmetrically Neuro: Awake, alert, oriented, normal speech, cranial nerves intact, moves all extremities symmetrically Psych: Pleasant, cooperative Course Course Course Narrative: RME, this is a rapid medical exam performed by Jeremy Joseph please refer to primary provider for complete H&P- 43-year-old male past medical history significant for hypertension, prediabetes, hyperlipidemia, recent diagnosis of atrial fibrillation not anticoagulated presents for evaluation of shortness of breath. Patient reports persistent shortness of breath since Monday, 4 days ago. he went to urgent care today and and was found to be in AFib at 170. His EKG today shows AFib at 160, while he was in triage his heart rate improved to 90 while he was seated. It was still irregular. Plan for labs, chest x-ray. he will be brought straight back to a room Medications Administered Discontinued Medications Generic Name Dose Route Start Last Admin Trade Name Freq PRN Reason Stop Dose Admin Diltiazem HCl 10 mg 07/10/24 15:55 07/10/24 16:00 Diltiazem Hcl 50 Mg/10 Ml Vial IVPUSH 07/10/24 15:56 10 mg STAT STA Administration Diltiazem HCl 25 mg 07/10/24 16:29 07/10/24 16:36 Diltiazem Hcl 50 Mg/10 Ml Vial IVPUSH 07/10/24 16:30 25 mg STAT STA Administration Diltiazem HCl 20 mg 07/10/24 18:07 07/10/24 18:18 Diltiazem Hcl 50 Mg/10 Ml Vial IVPUSH 07/10/24 18:08 20 mg STAT STA Administration Sodium Chloride 1,000 mls @ 999 mls/hr 07/10/24 16:04 07/10/24 17:17 Ns IV 07/10/24 17:04 Infused .Q1H1M ONE Infusion Ketorolac Tromethamine 15 mg 07/10/24 16:29 07/10/24 16:36 Ketorolac Tromethamine 15 Mg/Ml Vial IVPUSH 07/10/24 16:30 15 mg ONCE STA Administration Medical Decision Making Medical Decision Making MDM Narrative: 43-year-old male with a history of atrial fibrillation and prediabetes who presents emergency department for evaluation of chest pain and rapid heart rate. Patient states that he was diagnosed with atrial fibrillation 6 years prior in his had no recurrence until Patient states that 6 years prior he was diagnosed with atrial fibrillation in his went on metoprolol 25 mg daily with no recurrence of his symptoms. The patient states that on 07/06/2024 (4 days prior to evaluation). Patient states that he had associated shortness of breath, diaphoresis, left-sided chest pain. He states that on 07/08/2024 (2 days prior to evaluation) he went to [facility]. He states that he was given diltiazem IV with control of his rate. His metoprolol was increased from 25 mg a day to 50 mg a day. He states that shortly after he left the hospital if he believes that his heart rate got fast again. He had a 2 day follow-up with his PCP, Dr. Ugalde. He was noted to have a rapid heart rate of 174 beats per minute. The patient refused ambulance transport and drove himself to the emergency department. Here in the emergency department the patient was awake and alert, diaphoretic and noted to have a heart rate of 170 beats per minute. He currently is complaining of left-sided chest heaviness which is 7/10. It does radiate to his neck. He does complain of shortness of breath. 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 Differential diagnosis: ?Includes but is not limited to atrial fibrillation, atrial flutter, myocardial infarction, myocardial ischemia, hyperthyroidism, anemia, electrolyte abnormalities Course: 20:50 My interpretation patient's laboratory evaluation as follows: WBC elevated 13,600. H&H was normal 15.4 and 45.2. Platelet count was normal 219,000. AST and ALT elevated 45 and 49. TSH was normal 2.76. BNP elevated 289. First troponin detectable but not elevated at 3.2. 3 hour troponin not changed at 2.9. COVID-19, influenza and RSV tests were negative. Chest x-ray revealed no interstitial infiltrates. Patient's 12 EKG was consistent with atrial fibrillation with RVR. The patient was given multiple doses of bolus doses of diltiazem IV (10 mg, 25 mg, 20 mg) but he continues to have ventricular rates. Patient was given a bolus of diltiazem 10 mg IV and started on a diltiazem drip. At this point I do not think that I can control his rate and the patient will need to be hospitalized for further treatment. I did discuss the patient's presentation with the covering hospitalist, Dr. Pugh. After this discussion, the patient was placed DVT/PE dose heparin bolus and heparin drip as per protocol. Admission/Observation Consideration of admission/observation: Escalation of care including admission/observation considered (Yes) Consult Healthcare Provider Management of the patient was discussed with: Hospitalist (Dr. Pugh) Lab Data MDM Lab Attestation statement: I reviewed the patient's lab results. 07/10/24 15:51 07/10/24 15:52 Labs: Lab Results 07/10/24 07/10/24 07/10/24 Range/Units 15:51 15:52 18:00 WBC 13.6 H (4.8-10.8) X10*3/uL RBC 5.10 (4.60-5.80) X10*6/uL Hgb 15.4 (14.0-18.0) g/dl Hct 45.2 (42.0-52.0) % MCV 88.6 (80.0-98.0) fL MCH 30.2 (27.0-33.0) pg MCHC 34.1 (31.0-36.0) g/dl RDW 13.7 (11.0-16.0) % Plt Count 291 (160-400) X10*3/uL MPV 11.6 (9.4-12.4) fL Immature Gran % (Auto) 0.4 (0.0-0.4) % Neut % (Auto) 61.0 (45-73) % Lymph % (Auto) 27.3 (20-40) % [place] % (Auto) 9.9 (2-11) % Eos % (Auto) 0.8 (0-4) % Baso % (Auto) 0.6 (0-2) % Lymph # (Auto) 3.7 (1.2-4.9) X10*3/uL [place] # (Auto) 1.4 H (0.1-1.2) X10*3/uL Eos # (Auto) 0.1 (0.0-0.4) X10*3/uL Baso # (Auto) 0.1 (0.0-0.2) X10*3/uL Abs Immat Gran (auto) 0.05 H (0.00-0.03) X10*3/uL Absolute Neuts (auto) 8.3 (2.0-8.3) x10*3/uL Absolute Nucleated RBC 0.000 (0.0-0.012) X10*3/uL Nucleated RBC % (auto) 0.0 (0.0-0.2) /100WBC Sodium 141 (135-145) mmol/L Potassium 4.7 D (3.3-5.1) mmol/L Chloride 111 H (96-108) mmol/L Carbon Dioxide 21 L (22-29) mmol/L Anion Gap 14 (12-20) BUN 20 H (9-16) mg/dL Creatinine 1.09 (0.5-1.4) mg/dL Estim Creat Clear Calc 154.5 Estimated GFR > 60 Random Glucose 85 (60-115) mg/dL Calcium 8.9 (8.4-10.2) mg/dL Magnesium 2.1 (1.6-2.6) mg/dL Total Bilirubin 0.4 (0.0-1.0) mg/dL AST 45 H (5-37) U/L ALT 49 H (0-40) U/L Alkaline Phosphatase 100 (39-117) U/L Troponin I High Sens 3.2 2.9 (<3.5-35.0) ng/L B-Natriuretic Peptide 289 H (<100) pg/mL Total Protein 7.4 (6.5-8.0) g/dL Albumin 4.0 (3.5-5.0) g/dL Lipase 25 (8-78) U/L TSH 2.76 (0.32-4.0) uIU/mL Influenza Type A (PCR) NEGATIVE (Negative) Influenza Type B (PCR) NEGATIVE (Negative) RSV RNA Qual (PCR) NEGATIVE (Negative) SARS-CoV-2 RNA (RT-PCR) NEGATIVE (Negative) Independent Interpretation I performed an independent interpretation of an: EKG and Plain X-Ray Interpretation: My independent interpretation patient's one-view chest x-ray is as follows: No acute disease My independent interpretation patient's 12 EKG done on 07/10/2024 at 15:31 hours he was as follows: Atrial fibrillation with RVR 166 beats per minute, normal QRS duration and QTC interval, no ST segment elevation, no ST segment depression, no significant T-wave abnormalities. No old EKG for comparison Radiology Impression Discussion of test interpretation with radiology: I have reviewed the radiologist's reading. Radiologist Impression: XR chest 1V IMPRESSION: No active pulmonary disease. Electronically signed by: Jose Paulino MD 07/10/2024 04:14 PM EDT My independent interpretation of the patient's 12 EKG done on 07/10/2024 at 15:31 hours is as follows: Atrial fibrillation with a rate of 166, normal QRS duration 90 milliseconds normal QTC 465 milliseconds, no significant ST segment elevation or depression, no significant T-wave abnormalities, no old EKG for comparison Chronic Conditions Patient?s care impacted by: Diabetes Critical Care Time Critical Care Time Critical Care Time: Yes Total Critical Care Time: 55 Attestation: Critical Care: The patient was critically ill with a high probability of imminent or life threatening deterioration. I spent greater than 30 minutes of discontinuous time evaluating the patient,delivering critical care at the bedside, discussing and evaluating pertinent data with consultants. Critical care time does not include time spent performing separately billable procedures or teaching. Total time spent performing critical care was 55 minutes. Discharge Plan Discharge Clinical Impression: Atrial fibrillation with rapid ventricular response Patient Disposition: Admitted As Inpatient Prescriptions: No Action acetaminophen 500 mg capsule 1,000 mg PO Q6H PRN (Reason: pain (scale score 7-10)) Qty: 30 0RF ibuprofen 800 mg tablet 800 mg PO Q8H Qty: 60 0RF cyclobenzaprine 10 mg tablet 10 mg PO BEDTIME Qty: 10 0RF lidocaine 5 % adhesive patch,medicated 1 patch topical DAILY Qty: 15 0RF Rx Instructions: leave on most painful area for up to 12 hrs cholecalciferol (vitamin D3) 50 mcg (2,000 unit) capsule 50 mcg PO DAILY metoprolol succinate 50 mg tablet extended release 24 hr 50 mg PO DAILY Print Language: Nepali
[2024-07-10 15:57] LABS: MANUAL DIFF FLAG NO
[2024-07-10] MEDS: dilTIAZem HCL 50 MG/10 ML VIAL 10 MG IVPUSH ×2 (16:00→20:58)
--- NOTE | 2024-07-10 16:04 | PC.NURSE ---
B/P was 99/75, per mike Finney to give dose of med and start IVF.
[2024-07-10] MEDS: 0.9 % Sodium Chloride 1,000 ML 999 ML IV (16:06)
[2024-07-10 16:07] LABS: Basophils Absolute Auto 0.1 X10*3/uL (0.0-0.2); Basophils Percent Auto 0.6 % (0-2); Eosinophils Absolute Auto 0.1 X10*3/uL (0.0-0.4); Eosinophils Percent Auto 0.8 % (0-4); Hematocrit 45.2 % (42.0-52.0); Hemoglobin 15.4 g/dl (14.0-18.0); Imm Gran Abs Auto 0.05 X10*3/uL (0.00-0.03); Imm Gran Pct Auto 0.4 % (0.0-0.4); Lymphocytes Absolute Auto 3.7 X10*3/uL (1.2-4.9); Lymphocytes Percent Auto 27.3 % (20-40); Mean Corpuscular HGB Conc 34.1 g/dl (31.0-36.0); Mean Corpuscular Hemoglobin 30.2 pg (27.0-33.0); Mean Corpuscular Volume 88.6 fL (80.0-98.0); Mean Platelet Volume 11.6 fL (9.4-12.4); Monocytes Absolute Auto 1.4 X10*3/uL (0.1-1.2); Monocytes Percent Auto 9.9 % (2-11); Neutrophils Absolute Auto 8.3 x10*3/uL (2.0-8.3); Platelet Count 291 X10*3/uL (160-400); Red Cell Distribution Width 13.7 % (11.0-16.0); White Blood Count 13.6 X10*3/uL (4.8-10.8)
[2024-07-10 16:19] LABS: B Type Natriuretic Peptide 289 pg/mL (<100)
[2024-07-10 16:20] LABS: Alanine Aminotransferase 49 U/L (0-40); Anion Gap 14 (12-20); Aspartate Amino Transferase 45 U/L (5-37); Bilirubin Total 0.4 mg/dL (0.0-1.0); Blood Urea Nitrogen 20 mg/dL (9-16); Calcium 8.9 mg/dL (8.4-10.2); Carbon Dioxide 21 mmol/L (22-29); Chloride 111 mmol/L (96-108); Creatinine Clr Calc Pharmacy 154.5; Estimated Glomerular Filt Rate > 60; Glucose Random 85 mg/dL (60-115); Lipase 25 U/L (8-78); Magnesium 2.1 mg/dL (1.6-2.6); Potassium 4.7 mmol/L (3.3-5.1); Sodium 141 mmol/L (135-145); Total Protein 7.4 g/dL (6.5-8.0)
[2024-07-10 16:21] LABS: Troponin-I High Sensitivity 3.2 ng/L (<3.5-35.0)
[2024-07-10 16:24] LABS: Alkaline Phosphatase 100 U/L (39-117)
[2024-07-10 16:35] LABS: TSH reflex Free T4 2.76 uIU/mL (0.32-4.0)
[2024-07-10] MEDS: dilTIAZem HCL 50 MG/10 ML VIAL 25 MG IVPUSH (16:36)
[2024-07-10] MEDS: Ketorolac Tromethamine 15 MG/ML VIAL IVPUSH (16:36)
[2024-07-10 16:40] LABS: Influenza A PCR NEGATIVE (Negative); Influenza B PCR NEGATIVE (Negative); Resp Syncy Virus RNA Qual PCR NEGATIVE (Negative); SARS COV2 PCR INHOUSE NEGATIVE (Negative)
[2024-07-10] MEDS: dilTIAZem HCL 50 MG/10 ML VIAL 20 MG IVPUSH (18:18)
[2024-07-10 18:27] LABS: Troponin-I High Sensitivity 2.9 ng/L (<3.5-35.0)
--- NOTE | 2024-07-10 20:48 | PC.NURSE ---
Informed MD that pt's HR elevated to 160's. Awaiting orders.
--- NOTE | 2024-07-10 21:06 | PM.IMHP ---
History of Present Illness Date of Service: 07/10/24 Chief Complaint: chest pain 43-year-old male with a past medical history of AFib on metoprolol presented to the hospital today with a chief complaint of heart racing and chest pain. Patient reports that over the past few days he has been having heart rates in chest pain. Mentioned that he was recently admitted to the [facility] for rapid AFib and metoprolol dose was increased and subsequently discharged home. After he left the hospital he continued to have the increased heart rate again. Today he went to the PCP's office. He was noted to have heart rate in 170s and subsequently asked him go to the ER for further evaluation. Patient denies any shortness of breath dyspnea on exertion. Denies any GI symptoms. Review of all other systems is negative except mentioned above ER course: Per ER team, patient heart rate was elevated to 140s in the ER. Given multiple doses of IV diltiazem push but harsh and heart rate bones is back. Subsequently started him on the diltiazem drip. Patient also reported having chest pain which improved after Toradol. Troponin negative. No ischemic changes on EKG. Patient was subsequently started on heparin drip. COUNT INCLUDES THE [facility] Medical History Marijuana dependence Kidney stones Encounter to establish care Family History Mother Hypertension CHF (congestive heart failure) Father Stroke Surgical History History of esophagogastroduodenoscopy (EGD) History of appendectomy H/O shoulder surgery Social History (Updated 11/17/23 @ 13:24 by Stacey Lui [facility]) Housing: House Are you a primary personal care worker to a significant other at home: No Do you presently have visiting nurse or other home services: No Patient Tobacco Use Status: Former Tobacco user Tobacco use type: Cigarette Cigarette Packs Per Day: 0.5 Cigarettes Per Day: 10.0 Years Smoked: 25 Smoked in Last 30 Days: Yes e-Cigarette/Vaping Use: Never Used Use of substances other than those prescribed or required for medical reasons: Yes Substance Use Type: Marijuana Advance Directives: Yes Advance Directives Information Provided: Yes Advance Directives on File: No Do you have a plan to hurt others: No Plan service: Yes Current occupational status: employed Cognitive needs: No Hearing needs: No Vision needs: No Meds Allergies Allergy/AdvReac Type Severity Reaction Status Date / Time No Known Allergies Allergy Verified 07/10/24 15:39 Active Medications: Current Medications Acetaminophen (Acetaminophen 325 Mg Tablet) 650 mg PO Q6H PRN PRN Reason: Pain, Mild 1-3,fever,headache Calcium Carbonate (Calcium Carbonate 750 Mg Tab.Chew) 750 mg PO Q4H PRN PRN Reason: Heartburn Heparin Sodium (Porcine) (Heparin Sodium,Porcine 5,000 Unit/Ml Vial) 6,400 unit 40 unit/kg (6400 unit) IVPUSH PROTOCOL BOLUS PRN; Protocol PRN Reason: 40 unit/kg - Heparin Protocol Heparin Sodium/Sodium Chloride (Heparin Sodium,Porcine/1/2ns) 25,000 unit in 250 mls @ 0 mls/hr IVCONT .Q0M KEMRIT; Protocol Diltiazem HCl 125 mg/ Sodium (Chloride) 125 mls @ 0 mls/hr IVCONT .Q0M KERMIT; Protocol Magnesium Hydroxide (Milk Of Magnesia 30 Ml Oral.Susp) 30 ml PO DAILY PRN PRN Reason: Constipation Melatonin (Melatonin 3 Mg Tablet) 6 mg PO BEDTIME PRN PRN Reason: Insomnia Morphine Sulfate (Morphine Sulfate 2 Mg/Ml Cartridge) 1 mg IVPUSH Q4H PRN; Protocol PRN Reason: Breakthrough Pain Sodium Chloride (0.9 % Sodium Chloride Flush 3 Ml Syringe) 3 ml IVFLUSH [facility] Home Medications ?Medication ?Instructions ?Recorded ?Confirmed ?Last Taken ?Type cholecalciferol (vitamin D3) 50 50 mcg PO DAILY 10/25/22 07/10/24 Unknown History mcg (2,000 unit) capsule cyclobenzaprine 10 mg tablet 10 mg PO BEDTIME PRN Back Pain 07/10/24 07/10/24 Unknown History metoprolol succinate 50 mg 50 mg PO DAILY 07/10/24 07/10/24 07/10/24 History tablet,extended release 24 hr omeprazole 20 mg tablet,delayed 20 mg PO BEDTIME 07/10/24 07/10/24 Unknown History release Physical Exam Vital Signs and Narrative: Vital Signs: Last Vital Signs Temp 97.2 F 07/10/24 17:50 Pulse 154 H 07/10/24 20:58 Resp 20 07/10/24 20:51 BP 126/72 07/10/24 20:58 Pulse Ox 94 07/10/24 20:51 O2 Del Method Room Air 07/10/24 20:51 BMI result Body Mass Index 37.5 Gen: Appears be in no acute distress HEENT: NCAT, Moist mucosa. Pulmonary: Vesicular breath sounds, fair air entry CVS: Normal S1-S2 Abdomen: BS+, Soft, Nontender Extremities: Warm well perfused Neuro: Alert and awake. Results Labs 07/11/24 04:37 07/11/24 04:37 Labs: Laboratory Results - last 24 hr 07/10/24 07/10/24 15:51 15:52 MCV 88.6 MCH 30.2 MCHC 34.1 RDW 13.7 Plt Count 291 MPV 11.6 Immature Gran % (Auto) 0.4 Neut % (Auto) 61.0 Lymph % (Auto) 27.3 [place] % (Auto) 9.9 Eos % (Auto) 0.8 Baso % (Auto) 0.6 Lymph # (Auto) 3.7 [place] # (Auto) 1.4 H Eos # (Auto) 0.1 Baso # (Auto) 0.1 Abs Immat Gran (auto) 0.05 H Absolute Neuts (auto) 8.3 Absolute Nucleated RBC 0.000 Nucleated RBC % (auto) 0.0 Anion Gap 14 Estim Creat Clear Calc 154.5 Estimated GFR > 60 Random Glucose 85 Calcium 8.9 Magnesium 2.1 Total Bilirubin 0.4 AST 45 H ALT 49 H Alkaline Phosphatase 100 B-Natriuretic Peptide 289 H Total Protein 7.4 Albumin 4.0 Lipase 25 TSH 2.76 Influenza Type A (PCR) NEGATIVE Influenza Type B (PCR) NEGATIVE RSV RNA Qual (PCR) NEGATIVE SARS-CoV-2 RNA (RT-PCR) NEGATIVE Imaging Radiologist's Impressions: Impressions Chest X-Ray 07/10/24 16:05 IMPRESSION: No active pulmonary disease. Electronically signed by: Jose Paulino MD 07/10/2024 04:14 PM EDT Assessment and Plan (1) Atrial fibrillation: Qualifiers: Atrial fibrillation type: persistent (not longstanding) Qualified Code(s): I48.19 - Other persistent atrial fibrillation Status: Acute Plan 43-year-old male with a past medical history of AFib on metoprolol presented to the hospital today with a chief complaint of heart racing and chest pain. Noted to have AFib with RVR. AFib with RVR: Patient heart rate was in 170 prior to coming to the hospital. Recent multiple dose of IV diltiazem pulses no significant improvement. Subsequently started on diltiazem drip. Will continue diltiazem drip and titrate down as tolerated. Cardiology consult Echocardiogram TSH Patient's heart rate has been tenuous. While on the drip patient had pauses up to 3-5 seconds. When stopped it repeat bolus dose back to 120s 130s. Diltiazem drip is stopped early in the morning. Will keep the patient on metoprolol p.r.n. for heart rate. Chest pain: Patient had chest pain with increased heart rate. Currently resolved. EKG nonischemic Troponins negative Cardiology follow-up Empirically started on heparin drip DVT prophylaxis: Patient on heparin drip Full code Quality Stroke Does the patient have a stroke diagnosis?: No VTE Prior VTE?: No VTE Risk Level:: Medical - moderate - high VTE Device Contraindication: Treatment Not Indicated VTE Drug Contraindication: N/A - Med Ordered
[2024-07-10 21:42] LABS: Prothrombin Time 11.3 SEC (10.9-12.4)
[2024-07-10] MEDS: dilTIAZem HCL 125 MG in 0.9 % Sodium Chloride 100 ML 10 MG IVCONT (21:44)
[2024-07-10 21:45] LABS: PTT Heparin Drip 30.8 SEC (53-77.9)
[2024-07-10] MEDS: Heparin Sodium,Porcine 5,000 UNIT/ML VIAL 10000 UNIT IVPUSH (21:51)
[2024-07-10] MEDS: Heparin Sodium,Porcine/1/2NS 25,000 UNIT/250 ML IV.SOLN 23.09 UNIT IVCONT (22:02)
--- NOTE | 2024-07-10 22:09 | PC.NURSE ---
Cardiezem drip titrated to 15 at this time. HR at 130.
--- NOTE | 2024-07-10 22:33 | PHA.MEDREC ---
Addendum entered by Franko Negro [facility] 07/10/24 22:39: Med rec reviewed Original Note: Pharmacy Consult ? Medication Reconciliation Pharmacy has completed the medication reconciliation. Spoke with patient to confirm medications.
--- NOTE | 2024-07-10 22:35 | PC.NURSE ---
Awaiting the PA for pt's decreased b/p. Pt's b/p currently 89/65.
--- NOTE | 2024-07-10 22:40 | PC.NURSE ---
Informed GIANLUCA Matamoros, that pt's is low and is currently receiving Cardizem, informed to continue drip and awaiting orders from Admitting physician.
--- NOTE | 2024-07-10 22:48 | PC.NURSE ---
Report given to QUETA Paniagua.
[2024-07-10] MEDS: Lactated Ringers 1,000 ML 125 ML IVCONT (22:57)
[2024-07-10] MEDS: Melatonin 3 MG TABLET 6 MG PO (22:59)
[2024-07-11] VITALS (20 sets, daily range): BP systolic 88–145; BP diastolic 58–85; PULSE 73–146; RESP 15–20; TEMP 36.4–36.9; O2SAT 93–98
--- NOTE | 2024-07-11 | ECG_ITS ---
Test Reason : BRADYCARDIA Blood Pressure : */* mmHG Vent. Rate : 104 BPM Atrial Rate : * BPM P-R Int : * ms QRS Dur : 94 ms QT Int : 360 ms P-R-T Axes : * 5 51 degrees QTcB Int : 473 ms Atrial fibrillation with rapid ventricular response Abnormal ECG When compared with ECG of 10-Jul-2024 15:31, Vent. rate has decreased by 62 bpm Referred By: Dilma Kaufman Electronically Signed By: POLLY ROBLES MD
--- NOTE | 2024-07-11 00:52 | PC.NURSE ---
pt noted to be 88-90bpm on dena monitor, dilt drip paused at this time. no hospital bed available at this time to place pt sleeping, respirations even and unlabored. heparin drip continues at this time.
--- NOTE | 2024-07-11 03:04 | PC.NURSE ---
pt hr between 120-140. Dilt drip started again at 10ml/hr. pt vss otherwise.
--- NOTE | 2024-07-11 03:17 | PC.NURSE ---
pt intermittently HR in 150s, aware, no new orders at this time, dilt drip continues.
--- NOTE | 2024-07-11 04:37 | PC.NURSE ---
phlebotomy at bedside drawng PTT HD.
[2024-07-11 04:42] LABS: MANUAL DIFF FLAG NO
[2024-07-11 04:43] LABS: Basophils Absolute Auto 0.1 X10*3/uL (0.0-0.2); Basophils Percent Auto 0.7 % (0-2); Eosinophils Absolute Auto 0.2 X10*3/uL (0.0-0.4); Eosinophils Percent Auto 1.6 % (0-4); Hematocrit 43.3 % (42.0-52.0); Hemoglobin 14.5 g/dl (14.0-18.0); Imm Gran Abs Auto 0.04 X10*3/uL (0.00-0.03); Imm Gran Pct Auto 0.4 % (0.0-0.4); Lymphocytes Percent Auto 30.6 % (20-40); Mean Corpuscular HGB Conc 33.5 g/dl (31.0-36.0); Mean Corpuscular Hemoglobin 29.7 pg (27.0-33.0); Mean Corpuscular Volume 88.7 fL (80.0-98.0); Mean Platelet Volume 11.2 fL (9.4-12.4); Monocytes Absolute Auto 0.8 X10*3/uL (0.1-1.2); Monocytes Percent Auto 8.5 % (2-11); Neutrophils Absolute Auto 5.7 x10*3/uL (2.0-8.3); Neutrophils Percent Auto 58.2 % (45-73); Platelet Count 247 X10*3/uL (160-400); Red Blood Count 4.88 X10*6/uL (4.60-5.80); Red Cell Distribution Width 13.9 % (11.0-16.0); White Blood Count 9.7 X10*3/uL (4.8-10.8)
[2024-07-11 05:03] LABS: Prothrombin Time 11.6 SEC (10.9-12.4)
[2024-07-11 05:06] LABS: PTT Heparin Drip 86.5 SEC (53-77.9)
[2024-07-11 05:07] LABS: Alanine Aminotransferase 38 U/L (0-40); Albumin Level 3.6 g/dL (3.5-5.0); Alkaline Phosphatase 88 U/L (39-117); Anion Gap 11 (12-20); Aspartate Amino Transferase 24 U/L (5-37); Bilirubin Total 0.6 mg/dL (0.0-1.0); Blood Urea Nitrogen 18 mg/dL (9-16); Calcium 8.6 mg/dL (8.4-10.2); Carbon Dioxide 21 mmol/L (22-29); Chloride 114 mmol/L (96-108); Creatinine Clr Calc Pharmacy 220.2; Estimated Glomerular Filt Rate > 60; Glucose Random 103 mg/dL (60-115); Sodium 142 mmol/L (135-145); Total Protein 6.1 g/dL (6.5-8.0)
--- NOTE | 2024-07-11 06:11 | PC.NURSE ---
pt noted to claire down to 40 on the tele monitor x2, leads adjusted at this time. pt offering no complaints, repeat ekg obtained but unable to catch bradycardic episode. provider aware, no new orders at this time.
--- NOTE | 2024-07-11 06:32 | PC.NURSE ---
per provider, hold dilt drip at this time due to bradycardic episodes. pt offers no complaints at this time.
--- NOTE | 2024-07-11 06:59 | PC.NURSE ---
this rn noted pt to claire down to 30-40bpm x5 within a 2 minute period, code cart placed in room with pads for safety. provider contacted.
--- NOTE | 2024-07-11 07:00 | CA_ITS ---
Transthoracic Echocardiogram Patient (Last, First, Middle): Davy oLja, Gender: Male Date of : 1980 Age: 43 Procedure Date: 07/11/2024 Procedure Type: Transthoracic Echocardiogram [place] [facility] [place]: 205.74 cm Weight: 164.66 kg BSA: 2.99 m2 Heart Rate: bpm BP: 114 / 69 mmHg Autopsy Assistant: YARELIS Referring MD: Quan Pugh MD Department Manager: Dayo Hilario MD Symptoms: Tachycardia Study Quality: Technically Difficult ECG Rhythm: Sinus Conclusions: - 1. Normal LV ejection fraction of 60 65% 2. Normal cardiac valvular Dopplers 3. Upper limits normal ascending aortic size Findings Procedure Information Contrast agent, definity, is being given per protocol without apparent complications. Left Ventricle Normal left ventricular size, thickness, and systolic function. The visually estimated ejection fraction is between 60-65%. Spectral Doppler is indicative of a normal filling pattern. Right Ventricle Normal right ventricular cavity size. Atria The left atrium is likely dilated. Interatrial shunt cannot be excluded. The right atrium was not well visualized. Aortic Valve Normal aortic valve structure and function. There is no aortic valve stenosis. There is no aortic valve regurgitation. Mitral Valve Normal mitral valve structure and function. There is trace mitral valve regurgitation. There is no mitral valve stenosis. Pulmonic Valve The pulmonic valve was not well visualized. Tricuspid Valve The tricuspid valve was not well visualized. Tricuspid regurgitation envelope is inadequate for calculation of right ventricular systolic pressure. Great Vessels The pulmonary artery was not well visualized. Venous The inferior vena cava is normal in size and collapses greater than 50% with inspiration. Pericardium/Pleural The pericardium was not well visualized. Prior Study Comparison no prior transthoracic echo studies Measurements 2D Linear Measurements IVSd: 1.14 0.6-0.9/0.6-1.0 cm LVIDd: 5.52 3.9-5.3/4.2-5.9 cm LVIDd Index: 1.85 2.4-3.2/2.2-3.1 cm/m2 LVIDs: 4.61 2.0-3.6 cm LVPWd: 1.04 0.7-1.1 cm LA Diam: 4.10 2.7-3.8/3.0-4.0 cm LAIDs Index: 1.37 1.5-2.3 cm/m2 LV Mass: 299.87 67-162/88-224 g LV Mass Index: 100.29 43-95/49-115 g/m2 LVOT Diam: 2.50 3.0+(-)1.3 cm 2D Systolic Function EF 4C: 55.80 >55% EF 2C: 63.60 >55% EF BiP: 60.30 >55% Mitral Valve MV Pk E: 0.80 MV PK A: 0.50 MV Decel Time: 172.00 E/A: 1.60 E'Lateral: 14.10 E'Medial: 9.03 E/E' Med: 8.90 E/E' Lat: 5.70 PHT: 50.00 MVA PHT: 4.40 Decel Garvin: 4.67 Aortic Valve AoV Pk Bigg: 1.19 AoV Mn Bigg: 0.90 AoV VTI: 0.25 AoV Pk Grad: 6.00 Aov Mn Grad: 4.00 MARI Cont.VTI: 4.00 LVOT LVOT Pk Bigg: 1.01 LVOT Mn Bigg: 0.70 LVOT VTI: 0.21 LVOT Pk Grad: 4.00 LVOT Mn Grad: 2.00 LVOT Diam: 2.50 LVOT Area: 4.91 Diastolic Function MV Pk E: 0.80 MV Pk A: 0.50 E/A: 1.60 E'Medial: 9.03 E/E' Med: 8.90 E' Laterial: 14.10 E/E' Lat: 5.70 Right Ventricle TAPSE (mm): 22.60 TVS' Bigg: 13.50 Tricuspid Valve RA Press: 15.00 Great Vessels Aorta Sinus of Valsalva: 4.00 2.0-3.5 cm Ao Asc: 3.50 2.1-3.4 cm Ao Arch: 3.20 Updated in Other Vendor System with Status of Final Dayo Hilario MD electronically signed on 07/11/2024 4:36:08 PM with status of Final
[2024-07-11] MEDS: Lactated Ringers 1,000 ML 125 ML IVCONT (07:05)
--- NOTE | 2024-07-11 07:12 | PC.NURSE ---
Assumed care of pt at 0700. Pt resting in bed quietly, a/ox3, respirations even and unlabored, no increased wob/sob noted, Afib on media monitor, HR noted to decrease to 30s x4 times- asymptomatic, denies cp/sob. GIANLUCA Perera made aware. Pacer pads/code cart at bedside for safety, BP cycling q 15 to monitor. HR returns to 100s-110s, vitals taken and updated. Call rosenberg within reach, all needs met at this time.
--- NOTE | 2024-07-11 09:01 | PC.NURSE ---
Pt HR ranging 30s-160s on bus monitor- asymptomatic/BPs stable. GIANLUCA Perera and Cardiology aware. Manager Spanish at bedside to assess patient. Pt remains in afib on bus monitor, pacer pads on patient, and BP cycling to monitor. Call rosenberg within reach, all needs met at this time.
[2024-07-11] MEDS: Apixaban 5 MG TABLET PO ×2 (09:27→20:38)
[2024-07-11] MEDS: Metoprolol Tartrate 12.5 MG HALFTAB PO (09:27)
--- NOTE | 2024-07-11 09:58 | P.CONCA_ITS ---
History of Present Illness History of Present Illness Date of Service: 07/11/24 Requesting physician: Dilma Kaufman Consult reason: atrial fibrillation Chief complaint: Afib with RVR Narrative: I was consulted to see Davy in cardiology consultation today for atrial fibrillation with rapid and slow heart rate. He is a pleasant 43-year-old male with prior history of atrial fibrillation about 6 years ago. He said he had presented to emergency room at that time 1 was given metoprolol and had quickly converted to sinus rhythm and was started on oral metoprolol which she has been doing ever since and has no significant episode. Past Monday he was in usual state of health and he suddenly developed rapid heart rate associated with heaviness in his chest and lightheadedness and felt diaphoretic and pale. At that point time he took extra metoprolol that he had at home and waited however on Monday he felt better but Monday he felt poorly and went to a local hospital, [facility] and at that time was noted to be in atrial fibrillation. He was then given rate control medication in the emergency room and subsequently released home after couple of hours, seems like he was still in atrial fibrillation at that time but felt better. However says 2 hours after he went home he started feeling poorly again had rapid heart rate and tachycardia. He then went and saw his PCP yesterday who did EKG and showed that he was in atrial fibrillation rapid ventricular response in the 170s and he referred him to the emergency room here. Since he has been here he has been atrial fibrillation, he was going to rate control with Cardizem drip and then had significant bradycardia with a heart rate in the 30s. No obvious symptoms related to it. Hemodynamically stable. He was Cardizem was then stopped and his heart rate is now elevated in the 120-130 range and he can feel it. No chest pain. His troponins are negative. His BNP is mildly elevated 289. He recently had a home sleep study which shows severe sleep apnea although has not had a CPAP trial study in the lab. He also was told recently that he has prediabetes and has hyperlipidemia. He has never had any other cardiac issues including no history of coronary artery disease. Denies hypertension. Denies any smoking, alcohol use or excessive caffeine use. Denies any [id number] medications. He has had no recent systemic symptoms. He has not had any symptoms of heart failure recently or symptoms of exertional angina Review of Systems 2 Constitutional: Constitutional: Reports no additional constitutional complaints Eyes: Eyes: Reports no additional eye complaints Cardiovascular: Cardiovascular: Reports chest pain at rest, Denies syncope, Reports lightheadedness, Reports palpitations and Reports dyspnea Respiratory: Respiratory: Reports no additional respiratory complaints and Reports dyspnea Gastrointestinal: Gastrointestinal: Reports no additional gastrointestinal complaints Genitourinary: Genitourinary: Reports no additional male genitourinary complaints Musculoskeletal: Musculoskeletal: Reports no additional musculoskeletal complaints Neurologic: Reports system reviewed and no additional complaints, except as documented and Denies syncope Psychiatric: Psychiatric: Reports anxiety Endocrine: Endocrine: Reports palpitations PMFSH Past Medical History Medical History Marijuana dependence Kidney stones Encounter to establish care Family History Family History Mother Hypertension CHF (congestive heart failure) Father Stroke Surgical History Surgical History History of esophagogastroduodenoscopy (EGD) History of appendectomy H/O shoulder surgery Social History Social History Housing: House Are you a primary hiv/aids care nurse to a significant other at home: No Do you presently have visiting nurse or other home services: No Patient Tobacco Use Status: Former Tobacco user Tobacco use type: Cigarette Cigarette Packs Per Day: 0.5 Cigarettes Per Day: 10.0 Years Smoked: 25 Smoked in Last 30 Days: Yes e-Cigarette/Vaping Use: Never Used Use of substances other than those prescribed or required for medical reasons: Yes Substance Use Type: Marijuana Advance Directives: Yes Advance Directives Information Provided: Yes Advance Directives on File: No Do you have a plan to hurt others: No Plan Nutrition Risks: No Nutritional Risk service: Yes Current occupational status: employed Cognitive needs: No Hearing needs: No Vision needs: No Meds Allergies Allergy/AdvReac Type Severity Reaction Status Date / Time No Known Allergies Allergy Verified 07/10/24 15:39 Active Medications: Current Medications Acetaminophen (Acetaminophen 325 Mg Tablet) 650 mg PO Q6H PRN PRN Reason: Pain, Mild 1-3,fever,headache Apixaban (Apixaban 5 Mg Tablet) 5 mg PO BID [facility] Last Admin: 07/11/24 09:27 Dose: 5 mg Calcium Carbonate (Calcium Carbonate 750 Mg Tab.Chew) 750 mg PO Q4H PRN PRN Reason: Heartburn Lactated Ringer's (Lr) 1,000 mls @ 125 mls/hr IVCONT .Q8H [facility] Last Admin: 07/11/24 07:05 Dose: 125 mls/hr Magnesium Hydroxide (Milk Of Magnesia 30 Ml Oral.Susp) 30 ml PO DAILY PRN PRN Reason: Constipation Melatonin (Melatonin 3 Mg Tablet) 6 mg PO BEDTIME PRN PRN Reason: Insomnia Last Admin: 07/10/24 22:59 Dose: 6 mg Metoprolol Tartrate (Metoprolol Tartrate 12.5 Mg Halftab) 12.5 mg PO Q6H [facility]; Protocol Last Admin: 07/11/24 09:27 Dose: 12.5 mg Morphine Sulfate (Morphine Sulfate 2 Mg/Ml Cartridge) 1 mg IVPUSH Q4H PRN; Protocol PRN Reason: Breakthrough Pain Sodium Chloride (0.9 % Sodium Chloride Flush 3 Ml Syringe) 3 ml IVFLUSH QSHIFT [facility] Last Admin: 07/11/24 09:00 Dose: Not Given Home Medications ?Medication ?Instructions ?Recorded ?Confirmed ?Last Taken ?Type cholecalciferol (vitamin D3) 50 50 mcg PO DAILY 10/25/22 07/10/24 Unknown History mcg (2,000 unit) capsule cyclobenzaprine 10 mg tablet 10 mg PO BEDTIME PRN Back Pain 07/10/24 07/10/24 Unknown History metoprolol succinate 50 mg 50 mg PO DAILY 07/10/24 07/10/24 07/10/24 History tablet,extended release 24 hr omeprazole 20 mg tablet,delayed 20 mg PO BEDTIME 07/10/24 07/10/24 Unknown History release Physical Exam 2 Vital Signs: Vital Signs: Last Vital Signs Temp 98.0 F 07/11/24 09:30 Pulse 129 H 07/11/24 09:30 Resp 18 07/11/24 09:30 BP 124/71 07/11/24 09:30 Pulse Ox 93 07/11/24 09:30 O2 Del Method Room Air 07/11/24 09:30 O2 Flow Rate 2 07/10/24 22:36 BMI result Body Mass Index 39.0 Const: General: cooperative, comfortable, no acute distress, awake and anxious Nutritional Appearance: obese Orientation/consciousness: patient oriented x3 Limitations: no limitations HEENT: Head: Yes normocephalic and Yes atraumatic Neck: Neck: Yes trachea midline, Yes supple and Yes no JVD Resp: Effort & Inspection: normal respiratory effort Auscultation: clear to auscultation bilaterally Cardio: Jugular venous distension: no JVD Rate: tachycardic Rhythm: a bnormal rhythm irregularly irregular Heart sounds: S1 normal heart sound present, S2 normal heart sound present, no click, no gallops, no murmurs and no rubs GI: Auscultation: normal bowel sounds Skin: General skin exam: no rashes or lesions noted Neuro: General: patient oriented x3 and no focal motor deficits Extrem: General: Yes no clubbing, cyanosis or edema Objective Labs and Meds 07/11/24 04:37 07/11/24 04:37 Lab results: Laboratory Results - last 24 hr 07/10/24 07/10/24 07/10/24 15:51 15:52 18:00 WBC 13.6 H RBC 5.10 Hgb 15.4 Hct 45.2 MCV 88.6 MCH 30.2 MCHC 34.1 RDW 13.7 Plt Count 291 MPV 11.6 Immature Gran % (Auto) 0.4 Neut % (Auto) 61.0 Lymph % (Auto) 27.3 [place] % (Auto) 9.9 Eos % (Auto) 0.8 Baso % (Auto) 0.6 Lymph # (Auto) 3.7 [place] # (Auto) 1.4 H Eos # (Auto) 0.1 Baso # (Auto) 0.1 Abs Immat Gran (auto) 0.05 H Absolute Neuts (auto) 8.3 Absolute Nucleated RBC 0.000 Nucleated RBC % (auto) 0.0 PT INR aPTT Heparin Protocol Sodium 141 Potassium 4.7 D Chloride 111 H Carbon Dioxide 21 L Anion Gap 14 BUN 20 H Creatinine 1.09 Estim Creat Clear Calc 154.5 Estimated GFR > 60 Random Glucose 85 Calcium 8.9 Magnesium 2.1 Total Bilirubin 0.4 AST 45 H ALT 49 H Alkaline Phosphatase 100 Troponin I High Sens 3.2 2.9 B-Natriuretic Peptide 289 H Total Protein 7.4 Albumin 4.0 Lipase 25 TSH 2.76 Influenza Type A (PCR) NEGATIVE Influenza Type B (PCR) NEGATIVE RSV RNA Qual (PCR) NEGATIVE SARS-CoV-2 RNA (RT-PCR) NEGATIVE 07/10/24 07/11/24 21:31 04:37 WBC 9.7 RBC 4.88 Hgb 14.5 Hct 43.3 MCV 88.7 MCH 29.7 MCHC 33.5 RDW 13.9 Plt Count 247 MPV 11.2 Immature Gran % (Auto) 0.4 Neut % (Auto) 58.2 Lymph % (Auto) 30.6 [place] % (Auto) 8.5 Eos % (Auto) 1.6 Baso % (Auto) 0.7 Lymph # (Auto) 3.0 [place] # (Auto) 0.8 Eos # (Auto) 0.2 Baso # (Auto) 0.1 Abs Immat Gran (auto) 0.04 H Absolute Neuts (auto) 5.7 Absolute Nucleated RBC 0.000 Nucleated RBC % (auto) 0.0 PT 11.3 11.6 INR 1.0 1.0 aPTT Heparin Protocol 30.8 L 86.5 H D Sodium 142 Potassium 4.0 Chloride 114 H Carbon Dioxide 21 L Anion Gap 11 L BUN 18 H Creatinine 0.78 Estim Creat Clear Calc 220.2 Estimated GFR > 60 Random Glucose 103 Calcium 8.6 Magnesium Total Bilirubin 0.6 AST 24 ALT 38 Alkaline Phosphatase 88 Troponin I High Sens B-Natriuretic Peptide Total Protein 6.1 L Albumin 3.6 Lipase TSH Influenza Type A (PCR) Influenza Type B (PCR) RSV RNA Qual (PCR) SARS-CoV-2 RNA (RT-PCR) Imaging Radiologist's impression: Impressions Chest X-Ray 07/10/24 16:05 IMPRESSION: No active pulmonary disease. Electronically signed by: Jose Paulino MD 07/10/2024 04:14 PM EDT Assessment and Plan (1) Atrial fibrillation with rapid ventricular response: Status: Acute highly symptomatic atrial fibrillation with rapid ventricular response with difficult control rate with bradycardia with rate controlling medication which is highly unusual in this young man. His atrial fibrillation has been more than 72 hours present. I think he will most benefit from rhythm control approach acutely. However given that his atrial fibrillation is longer than 72 hours he will require ESTEFANI guided synchronized cardioversion to make sure he was no intracardiac thrombi prior to pursuing with synchronized cardioversion. This was discussed with him in details. He got very anxious although understands. The risks, benefits, alternatives to ESTEFANI as well as synchronized cardioversion were discussed with him in details. He understands agrees. Once he has achieved normal rhythm will pursue rhythm control approach with antiarrhythmic drug depending on his LV ejection fraction. He does have significant risk factors including obesity and obstructive sleep apnea in her long run which needs to be addressed especially obstructive sleep apnea which needs to be corrected and treated aggressively. We discussed about various other options for rhythm control approach. He understands agrees. Will give him Eliquis 5 mg b.i.d., 1st dose given prior to the procedure. Will follow with you. Greater than 40 minutes was spent in managing his complex care and arranging his treatment approach. Thank you for allowing me to partake in his Procedures Date of Service Date of Service: 07/11/24
--- NOTE | 2024-07-11 10:08 | CA_ITS ---
Transesophageal Echocardiogram Patient (Last, First, Middle): Davy Loja, Gender: Male Date of : 1980 Age: 43 Procedure Date: 07/11/2024 Procedure Type: Transesophageal Echocardiogram Location: ER Height: 200.66 cm Weight: 164.66 kg BSA: 2.94 m2 Heart Rate: bpm Scow Captain: TO Referring MD: Dayo Hilario MD Salvage Engineer: Dayo Hilario MD Symptoms: pre cardioversion Conclusion: ??? 1. Normal LV ejection fraction 2. No intracardiac thrombi, masses, vegetations 3. No significant abnormality of cardiac valvular Dopplers 4. Small PFO noted 5. No significant abnormality of aorta 6. No significant abnormality of the pericardium Findings Procedure Information Consent was obtained prior to the procedure. Pre ESTEFANI oral cavity was checked and revealed significant overcrowding. The adult 3D probe was passed with no difficulty. This was a technically good study. Left Ventricle The left ventricular systolic function is normal. The visually estimated ejection fraction is between 55-60%. Diastolic function is indeterminate on the basis of available data. Right Ventricle Normal right ventricular cavity size. Atria The left atrium is mildly dilated. Patent foramen ovale detected using by color Doppler. There is no evidence of thrombus or mass in the left atrium. there is no significant smoke formation seen in the left atrium and left atrial appendage. The left atrial appendage is free of any thrombus or masses. The left atrial appendage ejection velocities within normal limits. The left upper, left lower, right upper and right lower pulmonary vein drained normally into the left atrium. Small PFO noted by color Doppler, with left to right shunt. The right atrium is mildly dilated. There is no evidence of thrombus or mass in the right atrium. the right atrium was free of any significant smoke formation or masses. The right atrial appendage was free of any significant thrombus. The IVC and SVC drained normally into the right atrium. This is small eustachian valve noted at the junction of IVC and right atrium. Aortic Valve Normal aortic valve structure and function. There is no aortic valve stenosis. There is no evidence of a mass on the aortic valve. There is no aortic valve regurgitation. Mitral Valve Normal mitral valve structure and function. There is trace mitral valve regurgitation. There is no mitral valve stenosis. There is no mass noted on the mitral valve. Pulmonic Valve The pulmonic valve is normal. There is no mass noted on the pulmonic valve. There is trace pulmonic valve regurgitation. Tricuspid Valve Normal tricuspid valve structure. There is mild tricuspid valve regurgitation. The right ventricular systolic pressure is not calculated. Great Vessels All visible segments of the aorta are normal in size. The visualized portions of the pulmonary artery and branches are normal. Venous The inferior vena cava is normal in size. Pericardium/Pleural There is no evidence of pericardial effusion. Prior Study Comparison No prior study available for comparison. Updated by Dayo Hilario on 03:44 PM with Status of Final Dayo Hilario MD electronically signed on 07/11/2024 3:44:34 PM with status of Final
--- NOTE | 2024-07-11 10:09 | P.CONAN_ITS ---
[facility] Active Problems Active Problems: All Active Problems Atrial fibrillation with rapid ventricular response (Acute) Dyspnea (Acute) Prediabetes (Acute) Dyslipidemia (Acute) Back pain (Acute) Low HDL (under 40) (Acute) Elevated fasting glucose (Acute) Normal physical examination, routine (Acute) Vitamin D deficiency (Acute) Laboratory tests ordered as part of a complete physical exam (CPE) (Acute) Anxiety (Acute) Obesity (BMI 30-39.9) (Acute) Marijuana use (Acute) Smoking trying to quit (Acute) Snoring (Acute) Insomnia (Acute) Obesity (BMI 30.0-34.9) (Acute) Adult general medical exam (Acute) Blood in stool (Acute) Left shoulder pain (Acute) Right shoulder pain (Acute) Nicotine dependence (Acute) Atrial fibrillation (Acute) GERD (gastroesophageal reflux disease) (Acute) Past Medical History Medical History Marijuana dependence Kidney stones Encounter to establish care Family History Family History Mother Hypertension CHF (congestive heart failure) Father Stroke Family history of problems with anesthesia: No Surgical History Surgical History History of esophagogastroduodenoscopy (EGD) History of appendectomy H/O shoulder surgery History of Problems with Anesthesia: No Social History Social History Housing: House Are you a primary rn primary care to a significant other at home: No Do you presently have visiting nurse or other home services: No Patient Tobacco Use Status: Former Tobacco user Tobacco use type: Cigarette Cigarette Packs Per Day: 0.5 Cigarettes Per Day: 10.0 Years Smoked: 25 Smoked in Last 30 Days: Yes e-Cigarette/Vaping Use: Never Used Use of substances other than those prescribed or required for medical reasons: Yes Substance Use Type: Marijuana Advance Directives: Yes Advance Directives Information Provided: Yes Advance Directives on File: No Do you have a plan to hurt others: No Plan Nutrition Risks: No Nutritional Risk service: Yes Current occupational status: employed Cognitive needs: No Hearing needs: No Vision needs: No Meds Allergies Allergy/AdvReac Type Severity Reaction Status Date / Time No Known Allergies Allergy Verified 07/10/24 15:39 Active Medications: Current Medications Acetaminophen (Acetaminophen 325 Mg Tablet) 650 mg PO Q6H PRN PRN Reason: Pain, Mild 1-3,fever,headache Apixaban (Apixaban 5 Mg Tablet) 5 mg PO BID [facility] Last Admin: 07/11/24 09:27 Dose: 5 mg Calcium Carbonate (Calcium Carbonate 750 Mg Tab.Chew) 750 mg PO Q4H PRN PRN Reason: Heartburn Lactated Ringer's (Lr) 1,000 mls @ 125 mls/hr IVCONT .Q8H [facility] Last Admin: 07/11/24 07:05 Dose: 125 mls/hr Magnesium Hydroxide (Milk Of Magnesia 30 Ml Oral.Susp) 30 ml PO DAILY PRN PRN Reason: Constipation Melatonin (Melatonin 3 Mg Tablet) 6 mg PO BEDTIME PRN PRN Reason: Insomnia Last Admin: 07/10/24 22:59 Dose: 6 mg Metoprolol Tartrate (Metoprolol Tartrate 12.5 Mg Halftab) 12.5 mg PO Q6H [facility]; Protocol Last Admin: 07/11/24 09:27 Dose: 12.5 mg Morphine Sulfate (Morphine Sulfate 2 Mg/Ml Cartridge) 1 mg IVPUSH Q4H PRN; Protocol PRN Reason: Breakthrough Pain Sodium Chloride (0.9 % Sodium Chloride Flush 3 Ml Syringe) 3 ml IVFLUSH QSHIFT [facility] Last Admin: 07/11/24 09:00 Dose: Not Given Home Medications ?Medication ?Instructions ?Recorded ?Confirmed ?Last Taken ?Type cholecalciferol (vitamin D3) 50 50 mcg PO DAILY 10/25/22 07/10/24 Unknown History mcg (2,000 unit) capsule cyclobenzaprine 10 mg tablet 10 mg PO BEDTIME PRN Back Pain 07/10/24 07/10/24 Unknown History metoprolol succinate 50 mg 50 mg PO DAILY 07/10/24 07/10/24 07/10/24 History tablet,extended release 24 hr omeprazole 20 mg tablet,delayed 20 mg PO BEDTIME 07/10/24 07/10/24 Unknown History release Exam Height,Weight and Vital Signs: Height 6 ft 9 in Weight 164.9 kg Last Vital Signs Temp 98.0 F 07/11/24 09:30 Pulse 129 H 07/11/24 09:30 Resp 18 07/11/24 09:30 BP 124/71 07/11/24 09:30 Pulse Ox 93 07/11/24 09:30 O2 Del Method Room Air 07/11/24 09:30 O2 Flow Rate 2 07/10/24 22:36 Pertinent Lab Results Pertinent Lab Results: Laboratory Tests 07/10/24 07/10/24 07/10/24 15:51 15:52 18:00 WBC 13.6 H RBC 5.10 Hgb 15.4 Hct 45.2 MCV 88.6 MCH 30.2 MCHC 34.1 RDW 13.7 Plt Count 291 MPV 11.6 Immature Gran % (Auto) 0.4 Neut % (Auto) 61.0 Lymph % (Auto) 27.3 [place] % (Auto) 9.9 Eos % (Auto) 0.8 Baso % (Auto) 0.6 Lymph # (Auto) 3.7 [place] # (Auto) 1.4 H Eos # (Auto) 0.1 Baso # (Auto) 0.1 Abs Immat Gran (auto) 0.05 H Absolute Neuts (auto) 8.3 Absolute Nucleated RBC 0.000 Nucleated RBC % (auto) 0.0 PT INR aPTT Heparin Protocol Sodium 141 Potassium 4.7 D Chloride 111 H Carbon Dioxide 21 L Anion Gap 14 BUN 20 H Creatinine 1.09 Estim Creat Clear Calc 154.5 Estimated GFR > 60 Random Glucose 85 Calcium 8.9 Magnesium 2.1 Total Bilirubin 0.4 AST 45 H ALT 49 H Alkaline Phosphatase 100 Troponin I High Sens 3.2 2.9 B-Natriuretic Peptide 289 H Total Protein 7.4 Albumin 4.0 Lipase 25 TSH 2.76 Influenza Type A (PCR) NEGATIVE Influenza Type B (PCR) NEGATIVE RSV RNA Qual (PCR) NEGATIVE SARS-CoV-2 RNA (RT-PCR) NEGATIVE 07/10/24 07/11/24 21:31 04:37 WBC 9.7 RBC 4.88 Hgb 14.5 Hct 43.3 MCV 88.7 MCH 29.7 MCHC 33.5 RDW 13.9 Plt Count 247 MPV 11.2 Immature Gran % (Auto) 0.4 Neut % (Auto) 58.2 Lymph % (Auto) 30.6 [place] % (Auto) 8.5 Eos % (Auto) 1.6 Baso % (Auto) 0.7 Lymph # (Auto) 3.0 [place] # (Auto) 0.8 Eos # (Auto) 0.2 Baso # (Auto) 0.1 Abs Immat Gran (auto) 0.04 H Absolute Neuts (auto) 5.7 Absolute Nucleated RBC 0.000 Nucleated RBC % (auto) 0.0 PT 11.3 11.6 INR 1.0 1.0 aPTT Heparin Protocol 30.8 L 86.5 H D Sodium 142 Potassium 4.0 Chloride 114 H Carbon Dioxide 21 L Anion Gap 11 L BUN 18 H Creatinine 0.78 Estim Creat Clear Calc 220.2 Estimated GFR > 60 Random Glucose 103 Calcium 8.6 Magnesium Total Bilirubin 0.6 AST 24 ALT 38 Alkaline Phosphatase 88 Troponin I High Sens B-Natriuretic Peptide Total Protein 6.1 L Albumin 3.6 Lipase TSH Influenza Type A (PCR) Influenza Type B (PCR) RSV RNA Qual (PCR) SARS-CoV-2 RNA (RT-PCR) Airway Mallampati Class: III TM Dist: >3cm Neck ROM: Full Assessment and Plan Assessment Anesthesia Assessment: Anesthesia Plan Discussed and Chart Reviewed Final Anesthetic Review Family History of Problems with Anesthesia: No History of Problems with Anesthesia: No NPO: Yes ASA Class: III and Emergency Final Preanesthetic Review: No Changes in Pt Med Stat, Meds/Allgs Chart Reviewed, Consent Obtained/Reviewed and Anes Risks/Benef Reviewed Patient Risk: Intermediate Procedure Risk: Low Anesthetic Plan Anesthetic Plan: GA Disposition: Standard PACU
[2024-07-11] MEDS: Lactated Ringers 1,000 ML 80 ML IVCONT ×2 (10:25→20:42)
--- NOTE | 2024-07-11 10:40 | PC.NURSE ---
Heparin drip d/c @0910 per [facility]. Reflected in the MAR.
--- NOTE | 2024-07-11 11:34 | HO.CARDIVERS ---
Cardioversion Procedure Note Cardioversion Date of Procedure: 07/11/2024 Ordering Provider: John Hilario Performing Provider: John Hilario Indication for Procedure: Persistent atrial fibrillation with difficult control rate Pre-Op Diagnosis: Same Post-Op Diagnosis: Normal sinus rhythm Performed with Transesophageal Echo: Yes ESTEFANI findings (if ESTEFANI Performed): Full report dictated separately, no intracardiac thrombi found History: See my consult note Consent: Verbal and Written consent was obtained from the patient before starting. The patient was made aware of the risk of synchronized cardioversion including benefits and alternatives Procedure: After consent obtained and ESTEFANI completed, cardioversion pads were attached in anteroposterior configuration and the patient was sedated by the anesthesia team. Once adequate sedation confirmed, patient was delivered 200 joules of biphasic synchronized energy in anteroposterior configuration Complications: He had hypoxemia related to his severe sleep apnea doing the procedure which was quickly corrected by anesthesia team Impression: Successful conversion to sinus rhythm Recommendations: 1. 12 lead EKG 2. Start Multaq 400 mg b.i.d. 3. Continue full oral anticoagulation with Eliquis 4. Immediately start empiric CPAP therapy given his significant sleep apnea which is likely to precipitate recurrent atrial fibrillation.
--- NOTE | 2024-07-11 11:36 | ECG_ITS ---
Test Reason : post op Blood Pressure : */* mmHG Vent. Rate : 74 BPM Atrial Rate : 74 BPM P-R Int : 156 ms QRS Dur : 96 ms QT Int : 382 ms P-R-T Axes : 25 -8 40 degrees QTcB Int : 424 ms Normal sinus rhythm Normal ECG When compared with ECG of 11-Jul-2024 05:59, Sinus rhythm has replaced Atrial fibrillation Referred By: Dayo Hilario Electronically Signed By: DAYO HILARIO MD
--- NOTE | 2024-07-11 13:57 | HO.PM.IMPN ---
Subjective Subjective Date of Service: 07/11/24 Interval History: Seen and examined this morning Cardiology in seeing patient, heart rate elevated-plan for cardioversion this morning Review of Systems Review of Systems: Yes all other systems are reviewed and are negative Constitutional Constitutional: Denies chills and Denies fever(s) Physical Exam Vital Signs: Vital Signs: Last Vital Signs Temp 98.4 F 07/11/24 11:19 Pulse 86 07/11/24 13:00 Resp 16 07/11/24 13:00 BP 117/80 07/11/24 13:00 Pulse Ox 96 07/11/24 13:00 O2 Del Method Room Air 07/11/24 13:00 O2 Flow Rate 2 07/10/24 22:36 BMI result Body Mass Index 39.0 Const: General: alert and awake Nutritional Appearance: overweight Orientation/consciousness: patient oriented x3 Resp: Effort & Inspection: normal respiratory effort and able to speak in complete sentences Cardio: Rate: tachycardic Neuro: General: patient oriented x3 Objective Data Active Medications Acetaminophen (Acetaminophen 325 Mg Tablet) 650 mg PO Q6H PRN PRN Reason: Pain, Mild 1-3,fever,headache Apixaban (Apixaban 5 Mg Tablet) 5 mg PO BID [facility] Last Admin: 07/11/24 09:27 Dose: 5 mg Documented By: GABBIE Calcium Carbonate (Calcium Carbonate 750 Mg Tab.Chew) 750 mg PO Q4H PRN PRN Reason: Heartburn Dronedarone (Dronedarone Hcl 400 Mg Tablet) 400 mg PO BID [facility] Lactated Ringer's (Lr) 1,000 mls @ 125 mls/hr IVCONT .Q8H [facility] Last Admin: 07/11/24 07:05 Dose: 125 mls/hr Documented By: GABBIE Lactated Ringer's (Lr) 1,000 mls @ 80 mls/hr IVCONT .[id number] [facility] Last Admin: 07/11/24 10:25 Dose: 80 mls/hr Documented By: SAGAR Magnesium Hydroxide (Milk Of Magnesia 30 Ml Oral.Susp) 30 ml PO DAILY PRN PRN Reason: Constipation Melatonin (Melatonin 3 Mg Tablet) 6 mg PO BEDTIME PRN PRN Reason: Insomnia Last Admin: 07/10/24 22:59 Dose: 6 mg Documented By: HO.DIONS Morphine Sulfate (Morphine Sulfate 2 Mg/Ml Cartridge) 1 mg IVPUSH Q4H PRN; Protocol PRN Reason: Breakthrough Pain Naloxone HCl (Naloxone Hcl 0.4 Mg/Ml Vial) 0.04 mg IVPUSH Q5M PRN PRN Reason: Excessive sedation or RR < 8 Sodium Chloride (0.9 % Sodium Chloride Flush 3 Ml Syringe) 3 ml IVFLUSH QSHIFT [facility] Last Admin: 07/11/24 09:00 Dose: Not Given Documented By: GABBIE Non-Admin Reason: IV Running Labs 07/11/24 04:37 07/11/24 04:37 Labs: Laboratory Results - last 24 hr 07/10/24 07/10/24 07/10/24 15:51 15:52 21:31 MCV 88.6 MCH 30.2 MCHC 34.1 RDW 13.7 Plt Count 291 MPV 11.6 Immature Gran % (Auto) 0.4 Neut % (Auto) 61.0 Lymph % (Auto) 27.3 [place] % (Auto) 9.9 Eos % (Auto) 0.8 Baso % (Auto) 0.6 Lymph # (Auto) 3.7 [place] # (Auto) 1.4 H Eos # (Auto) 0.1 Baso # (Auto) 0.1 Abs Immat Gran (auto) 0.05 H Absolute Neuts (auto) 8.3 Absolute Nucleated RBC 0.000 Nucleated RBC % (auto) 0.0 PT 11.3 INR 1.0 aPTT Heparin Protocol 30.8 L Anion Gap 14 Estim Creat Clear Calc 154.5 Estimated GFR > 60 Random Glucose 85 Calcium 8.9 Magnesium 2.1 Total Bilirubin 0.4 AST 45 H ALT 49 H Alkaline Phosphatase 100 B-Natriuretic Peptide 289 H Total Protein 7.4 Albumin 4.0 Lipase 25 TSH 2.76 Influenza Type A (PCR) NEGATIVE Influenza Type B (PCR) NEGATIVE RSV RNA Qual (PCR) NEGATIVE SARS-CoV-2 RNA (RT-PCR) NEGATIVE 07/11/24 04:37 MCV 88.7 MCH 29.7 MCHC 33.5 RDW 13.9 Plt Count 247 MPV 11.2 Immature Gran % (Auto) 0.4 Neut % (Auto) 58.2 Lymph % (Auto) 30.6 [place] % (Auto) 8.5 Eos % (Auto) 1.6 Baso % (Auto) 0.7 Lymph # (Auto) 3.0 [place] # (Auto) 0.8 Eos # (Auto) 0.2 Baso # (Auto) 0.1 Abs Immat Gran (auto) 0.04 H Absolute Neuts (auto) 5.7 Absolute Nucleated RBC 0.000 Nucleated RBC % (auto) 0.0 PT 11.6 INR 1.0 aPTT Heparin Protocol 86.5 H D Anion Gap 11 L Estim Creat Clear Calc 220.2 Estimated GFR > 60 Random Glucose 103 Calcium 8.6 Magnesium Total Bilirubin 0.6 AST 24 ALT 38 Alkaline Phosphatase 88 B-Natriuretic Peptide Total Protein 6.1 L Albumin 3.6 Lipase TSH Influenza Type A (PCR) Influenza Type B (PCR) RSV RNA Qual (PCR) SARS-CoV-2 RNA (RT-PCR) Assessment and Plan (1) Atrial fibrillation with rapid ventricular response: Status: Acute Plan 43-year-old male with a past medical history of AFib on metoprolol presented to the hospital today with a chief complaint of heart racing and chest pain. Noted to have AFib with RVR. AFib with RVR: Patient heart rate was in 170 prior to coming to the hospital. Received multiple dose of IV diltiazem with no significant improvement. Subsequently started on diltiazem drip and then developed intermittent bradycardia. TSH, electrolytes normal Seen by cardiology and underwent successful ESTEFANI cardioversion 07/11, converted to normal sinus rhythm - started on Multaq Transitioned heparin drip to oral Eliquis Echocardiogram pending Overnight sleep study Chest pain: likely due to above, now resolved EKG nonischemic Troponins negative gerd continue Prilosec DVT prophylaxis: Eliquis Full code Quality Stroke Does the patient have a stroke diagnosis?: No VTE Prior VTE?: No VTE Risk Level:: Medical - moderate - high VTE Device Contraindication: Treatment Not Indicated VTE Drug Contraindication: N/A - Med Ordered
--- NOTE | 2024-07-11 15:42 | MHC.CM.PN ---
EMR REVIEWED, PT W/AFIB W/RVR S/P CARDIOVERSION, PLAN FOR SLEEP STUDY TONIGHT 07/11, WILL NEED CPAP. CM MET W/PT AT BEDSIDE, PT UP AND WALKING AROUND ROOM D/T BEING IN BED SINCE HE ARRIVED, PT REPORTS HE LIVES W/S.O. [place] AND DTR, PT IS INDEP W/ALL CARE, DENIES USE OF DME/SERVICES, PT'S GOAL FOR DC IS HOME NO SERVICES. PCP ON FILE VERIFIED, PT EDUCATED ON AND DECLINES TO COMPLETE A HCP AT THIS TIME, PT AWARE HE CAN ASK FOR CM IF HE CHANGES HIS MIND.
[2024-07-11] MEDS: 0.9 % Sodium Chloride Flush 3 ML SYRINGE IVFLUSH (17:28)
[2024-07-11] MEDS: Omeprazole 20 MG CAPSULE.DR PO (20:38)
[2024-07-11] MEDS: Dronedarone HCl 400 MG TABLET PO (20:38)
[2024-07-12] VITALS: BP 157/78; PULSE 80; RESP 17; TEMP 37.1; O2SAT 98
[2024-07-12 02:03] LABS: D Dimer High Sensitivity < 150 NG/ML
[2024-07-12 04:00] VITALS: BP 113/61; PULSE 92; RESP 17; TEMP 36.2; O2SAT 94
[2024-07-12 07:40] VITALS: BP 116/60; PULSE 94; RESP 16; TEMP 36.4; O2SAT 97
[2024-07-12] MEDS: Cholecalciferol (Vitamin D3) 25 MCG TABLET 50 MCG PO (07:48)
[2024-07-12] MEDS: Apixaban 5 MG TABLET PO (07:48)
[2024-07-12] MEDS: 0.9 % Sodium Chloride Flush 3 ML SYRINGE IVFLUSH (07:48)
[2024-07-12] MEDS: Dronedarone HCl 400 MG TABLET PO (07:48)
[2024-07-12 08:22] VITALS: PULSE 100; PULSE 86; O2SAT 92; O2SAT 97
--- NOTE | 2024-07-12 09:24 | HO.POSTANES ---
Post Anesthesia Evaluation Post Anesthesia Evaluation Date of Service: 07/12/24 Vital Signs: Vital Signs Temp Pulse Resp BP Pulse Ox O2 Del Method O2 Flow Rate 07/12/24 07:40 97.6 F 94 16 116/60 97 Nasal Cannula 2 07/12/24 04:00 97.2 F 92 17 113/61 94 Room Air 07/12/24 00:00 98.7 F 80 17 157/78 H 98 Room Air Anesthesia: Monitored Mental Status: Awake Pain Control: Satisfactory Nausea/Vomiting: None Hydration: Adequate Anesthesia-Related Issues: No Anes. Related Issues
[2024-07-12 09:34] LABS: Venous Blood Gas Refer to POC result
[2024-07-12 09:37] LABS: VBG Base Excess -1.1 mmol/L; VBG HCO3 22 mmol/L (22-26); VBG pCO2 33 mmHg; VBG pH 7.42 (7.32-7.43); VBG pO2 64 mmHg
[2024-07-12 10:44] VITALS: BP 138/72; PULSE 88; RESP 15; TEMP 36.6; O2SAT 96
--- NOTE | 2024-07-12 11:30 | P.PNCA_ITS ---
Subjective Subjective Date of Service: 07/12/24 Principal diagnosis: Atrial fibrillation Interval history: Patient underwent ESTEFANI guided cardioversion. During the procedure at significantly hypoxemia consistent with obstructive sleep apnea. Overnight had significant hypoxemia. Patient is staying overnight for further treatment options says recommended by Pulmonary. Overnight has remained in sinus rhythm. Review of Systems Constitutional: Reports no additional constitutional complaints Physical Exam Vital Signs: Last Vital Signs Temp 97.8 F 07/12/24 10:44 Pulse 88 07/12/24 10:44 Resp 15 07/12/24 10:44 BP 138/72 07/12/24 10:44 Pulse Ox 96 07/12/24 10:44 O2 Del Method Room Air 07/12/24 10:44 O2 Flow Rate 2 07/12/24 07:40 BMI result Body Mass Index 39.0 Const General: cooperative, comfortable, no acute distress, alert and awake Nutritional Appearance: obese Orientation/consciousness: patient oriented x3 Neck Neck: Yes trachea midline, Yes supple and Yes no JVD Resp Effort & Inspection: normal respiratory effort Auscultation: clear to auscultation bilaterally Cardio Jugular venous distension: no JVD Rate: regular rate Rhythm: regular rhythm Heart sounds: S1 normal heart sound present, S2 normal heart sound present, no click and no gallops GI Auscultation: normal bowel sounds Skin General skin exam: no rashes or lesions noted Neuro General: patient oriented x3 and no focal motor deficits Extrem General: Yes no clubbing, cyanosis or edema Psych Appearance: grossly normal Objective Labs and Meds 07/11/24 04:37 07/11/24 04:37 Lab results: Laboratory Results - last 24 hr 07/12/24 07/12/24 01:36 09:30 D-Dimer High Sensitivty < 150 VBG pH 7.42 VBG pCO2 33 VBG pO2 64 VBG HCO3 22 VBG O2 Saturation 93.0 VBG Base Excess -1.1 Progress Note: A&P Assessment and plan (1) Atrial fibrillation with rapid ventricular response: Status: Acute Assessment and Plan: Highly symptomatic atrial fibrillation with difficult control rate, status post ESTEFANI guided cardioversion. Echocardiogram shows normal LV ejection fraction. Patient has significant nocturnal hypoxemia consistent with significant sleep apnea. Currently awaiting correction of the same. I would continue Multaq 400 mg b.i.d. at his Eliquis 5 mg b.i.d.. Eliquis would be at least for 4-6 weeks. 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 Correction of sleep apnea is absolutely necessary. Weight reduction was discussed with him. From cardiac perspective patient can be discharged home. Will follow him up as an outpatient. Time Spent With Patient Time: Total time managing care of this patient today ____ minutes. Progress Note: Quality Stroke Does the patient have a stroke diagnosis?: No Procedures Date of Service Date of Service: 07/12/24
--- NOTE | 2024-07-12 12:19 | PM.CNPUL ---
History of Present Illness History of Present Illness Consult date: 07/12/24 Chief complaint: Afib with RVR Narrative: This is an inpatient pulmonary consultation. The patient is a 43-year-old male with prior history of atrial fibrillation who presented to the emergency room with chest heaviness and lightheadedness and felt diaphoretic and pale. At that point time he took extra metoprolol that he had at home and waited however on Monday he felt better but Monday he felt poorly and went to a local hospital, [facility] and at that time was noted to be in atrial fibrillation. He was then given rate control medication in the emergency room and subsequently released home after couple of hours, seems like he was still in atrial fibrillation at that time but felt better. However says 2 hours after he went home he started feeling poorly again had rapid heart rate and tachycardia. He then went and saw his PCP yesterday who did EKG and showed that he was in atrial fibrillation rapid ventricular response in the 170s and he referred him to the emergency room here. Since he has been here he has been atrial fibrillation, he was going to rate control with Cardizem drip and then had significant bradycardia with a heart rate in the 30s. S/P ESTEFANI and Cardioversion and doing better. He also has been evaluated for significant sleep apnea. He did undergo a sleep study as sleep Medicine Services. Demonstrating an AHI of 96 events an hour with significant hypoxia. The patient did have significant obstructive and central apneas. The patient needs urgent therapy for his significant sleep apnea as it can precipitate the cardiac arrhythmia. Therefore Pulmonary was consulted. I did review his sleep study from sleep medicine services from May. Right now he is scheduled for titration study on August 02. Current the patient is hemodynamically better after the cardioversion still. I did reach out to sleep Medicine Services to see if they can provide him with PAP therapy before his titration study or trying to expedite the titration study as soon as possible to minimize the risk of him going back into a dangerous cardiac arrhythmia. The patient did have a blood gas while in the hospital and is reassuring without any evidence of any hypercarbia. Otherwise the patient does not have any history of any respiratory disease. Therefore, as long as sleep Medicine Services will can provide therapy for him as a bridge while he waits for his titration study he is able to be discharged home. Review of Systems Constitutional: Constitutional: Reports daytime sleepiness, Reports fatigue, Reports headache(s) and Reports stops breathing during sleep Eyes: Eyes: Reports no additional eye complaints ENT: Reports headache(s) Cardiovascular: Cardiovascular: Reports chest pain at rest, Denies syncope, Reports lightheadedness, Reports palpitations and Reports dyspnea Respiratory: Respiratory: Reports no additional respiratory complaints and Reports dyspnea Gastrointestinal: Gastrointestinal: Reports no additional gastrointestinal complaints Genitourinary: Genitourinary: Reports no additional male genitourinary complaints Musculoskeletal: Musculoskeletal: Reports no additional musculoskeletal complaints Neurologic: Reports system reviewed and no additional complaints, except as documented, Denies syncope and Reports headache(s) Psychiatric: Psychiatric: Reports anxiety Endocrine: Endocrine: Reports fatigue and Reports palpitations PMFSH Past Medical History Medical History (Updated 07/12/24 @ 12:25 by Carroll Oliva MD) Complex sleep apnea syndrome Marijuana dependence Kidney stones Encounter to establish care Family History Family History Mother Hypertension CHF (congestive heart failure) Father Stroke Surgical History Surgical History History of esophagogastroduodenoscopy (EGD) History of appendectomy H/O shoulder surgery Social History Social History Household Members: Spouse and Children Housing: House Are you a primary home health care physician to a significant other at home: No Do you presently have visiting nurse or other home services: No Patient Tobacco Use Status: Former Tobacco user Tobacco use type: Cigarette Cigarette Packs Per Day: 0.5 Cigarettes Per Day: 10.0 Years Smoked: 25 e-Cigarette/Vaping Use: Never Used Second Hand Smoke Exposure: Yes Substance Use Type: Marijuana service: Yes Current occupational status: employed Cognitive needs: No Hearing needs: No Vision needs: No Meds Allergies Allergy/AdvReac Type Severity Reaction Status Date / Time No Known Allergies Allergy Verified 07/10/24 15:39 Active Medications: Current Medications Acetaminophen (Acetaminophen 325 Mg Tablet) 650 mg PO Q6H PRN PRN Reason: Pain, Mild 1-3,fever,headache Apixaban (Apixaban 5 Mg Tablet) 5 mg PO BID KERMIT Last Admin: 07/12/24 07:48 Dose: 5 mg Calcium Carbonate (Calcium Carbonate 750 Mg Tab.Chew) 750 mg PO Q4H PRN PRN Reason: Heartburn Cyclobenzaprine HCl (Cyclobenzaprine Hcl 10 Mg Tablet) 10 mg PO BEDTIME PRN PRN Reason: Back Pain Dronedarone (Dronedarone Hcl 400 Mg Tablet) 400 mg PO BID [facility] Last Admin: 07/12/24 07:48 Dose: 400 mg Magnesium Hydroxide (Milk Of Magnesia 30 Ml Oral.Susp) 30 ml PO DAILY PRN PRN Reason: Constipation Melatonin (Melatonin 3 Mg Tablet) 6 mg PO BEDTIME PRN PRN Reason: Insomnia Last Admin: 07/10/24 22:59 Dose: 6 mg Morphine Sulfate (Morphine Sulfate 2 Mg/Ml Cartridge) 1 mg IVPUSH Q4H PRN; Protocol PRN Reason: Breakthrough Pain Naloxone HCl (Naloxone Hcl 0.4 Mg/Ml Vial) 0.04 mg IVPUSH Q5M PRN PRN Reason: Excessive sedation or RR < 8 Omeprazole (Omeprazole 20 Mg Capsule.Dr) 20 mg PO BEDTIME [facility] Last Admin: 07/11/24 20:38 Dose: 20 mg Sodium Chloride (0.9 % Sodium Chloride Flush 3 Ml Syringe) [facility] Last Admin: 07/12/24 07:48 Dose: 3 ml Vitamin D (Cholecalciferol (Vitamin D3) 25 Mcg Tablet) 50 mcg PO DAILY [facility] Last Admin: 07/12/24 07:48 Dose: 50 mcg Home Medications ?Medication ?Instructions ?Recorded ?Confirmed ?Last Taken ?Type cholecalciferol (vitamin D3) 50 50 mcg PO DAILY 10/25/22 07/10/24 Unknown History mcg (2,000 unit) capsule cyclobenzaprine 10 mg tablet 10 mg PO BEDTIME PRN Back Pain 07/10/24 07/10/24 Unknown History metoprolol succinate 50 mg 50 mg PO DAILY 07/10/24 07/10/24 07/10/24 History tablet,extended release 24 hr omeprazole 20 mg tablet,delayed 20 mg PO BEDTIME 07/10/24 07/10/24 Unknown History release Physical Exam Vital Signs: Vital Signs: Last Vital Signs Temp 97.8 F 07/12/24 10:44 Pulse 88 07/12/24 10:44 Resp 15 07/12/24 10:44 BP 138/72 07/12/24 10:44 Pulse Ox 96 07/12/24 10:44 O2 Del Method Room Air 07/12/24 10:44 O2 Flow Rate 2 07/12/24 07:40 BMI result Body Mass Index 39.0 Const: General: cooperative, comfortable, no acute distress, alert and awake Nutritional Appearance: obese Orientation/consciousness: patient oriented x3 Neck: Neck: Yes trachea midline, Yes supple and Yes no JVD Resp: Effort & Inspection: normal respiratory effort Auscultation: clear to auscultation bilaterally Cardio: Rate: regular rate Rhythm: regular rhythm Heart sounds: S1 normal heart sound present, S2 normal heart sound present, no click and no gallops GI: Auscultation: normal bowel sounds Skin: General skin exam: no rashes or lesions noted Neuro: General: patient oriented x3 and no focal motor deficits Extrem: General: Yes no clubbing, cyanosis or edema Psych: Appearance: grossly normal Results Laboratory Findings 07/11/24 04:37 07/11/24 04:37 ABG, PT/INR, D-dimer: PT/INR, D-dimer PT 11.6 SEC (10.9-12.4) 07/11/24 04:37 INR 1.0 (0.9-1.1) 07/11/24 04:37 Abnormal lab findings: Abnormal Labs 07/10/24 07/10/24 07/10/24 15:51 15:52 21:31 WBC 13.6 H [place] # (Auto) 1.4 H Abs Immat Gran (auto) 0.05 H aPTT Heparin Protocol 30.8 L Chloride 111 H Carbon Dioxide 21 L Anion Gap BUN 20 H AST 45 H ALT 49 H B-Natriuretic Peptide 289 H Total Protein 07/11/24 04:37 WBC [place] # (Auto) Abs Immat Gran (auto) 0.04 H aPTT Heparin Protocol 86.5 H D Chloride 114 H Carbon Dioxide 21 L Anion Gap 11 L BUN 18 H AST ALT B-Natriuretic Peptide Total Protein 6.1 L Assessment and Plan (1) Atrial fibrillation with rapid ventricular response: Status: Acute (2) Complex sleep apnea syndrome: Status: Acute Plan The patient is already established with sleep Medicine Services and was awaiting the titration study in order to provide him with the proper PAP therapy and to reassess oxygen requirements at night. They will try to facilitate this study sooner if possible adding him to a urgent cancellation list. If the patient stays overnight then CPAP therapy can be use to assess his response to therapy and his oxygen requirements while in the hospital. Otherwise he will have proper titration study with sleep medicine services as already planned. Tobacco cessation Procedures Date of Service Date of Service: 07/12/24
--- NOTE | 2024-07-12 14:13 | P.DS_ITS ---
DS: Providers Provider Date of Service: 07/12/24 Date of admission: 07/10/24 21:01 Date of discharge: 07/12/24 Primary care physician: Nayna Ugalde CNP Consults: 07/10/24 21:00 Consult to Cardiology Routine Consulting Provider: [facility] Reason for consultation: Afib RVR; chest pain 07/12/24 07:17 Consult to Pulmonology Routine Consulting Provider: [facility] Reason for consultation: overnight sleep study; sleep apnea Has provider been notified: No Attending physician on discharge: Ayo Diop Discharging clinician: Dilma Kaufman DS: Diagnosis Discharge Diagnosis (1) Atrial fibrillation with rapid ventricular response: Status: Acute (2) Complex sleep apnea syndrome: Status: Acute DS: Summary Hospital Course Hospital Course: From H&P on the day of admission 43-year-old male with a past medical history of AFib on metoprolol presented to the hospital today with a chief complaint of heart racing and chest pain. Patient reports that over the past few days he has been having heart rates in chest pain. Mentioned that he was recently admitted to the [facility] for rapid AFib and metoprolol dose was increased and subsequently discharged home. After he left the hospital he continued to have the increased heart rate again. Today he went to the PCP's office. He was noted to have heart rate in 170s and subsequently asked him go to the ER for further evaluation. Patient denies any shortness of breath dyspnea on exertion. Denies any GI symptoms. Review of all other systems is negative except mentioned above ER course: Per ER team, patient heart rate was elevated to 140s in the ER. Given multiple doses of IV diltiazem push but harsh and heart rate bones is back. Subsequently started him on the diltiazem drip. Patient also reported having chest pain which improved after Toradol. Troponin negative. No ischemic changes on EKG. Patient was subsequently started on heparin drip. Patient heart rate was in 170 prior to coming to the hospital. Received multiple dose of IV diltiazem with no significant improvement. Subsequently started on diltiazem drip and then developed intermittent bradycardia. TSH, electrolytes normal. Seen by cardiology and underwent successful ESTEFANI cardioversion 07/11, converted to normal sinus rhythm and has remained in sinus rhythm- started on Multaq. Transitioned heparin drip to oral Eliquis JONATHON. Was diagnosed to have sleep apnea but has not yet had titration study. Noted to have significant desaturation overnight. Called to see if sleep lab was able to move up his appointment, they are able to accommodate him tonight for titration study to set up CPAP. Time Attestation Discharge Coordination Time (in mins): 32 Quality: Safe Use of Opioids Does Pt have an Active Cancer Diagnosis on the Problem List?: No Quality: Stroke Does the patient have a stroke diagnosis?: No Physical Exam Vital Signs: Vital Signs: Last Vital Signs Temp 97.8 F 07/12/24 10:44 Pulse 88 07/12/24 10:44 Resp 15 07/12/24 10:44 BP 138/72 07/12/24 10:44 Pulse Ox 96 07/12/24 10:44 O2 Del Method Room Air 07/12/24 10:44 O2 Flow Rate 2 07/12/24 07:40 BMI result Body Mass Index 39.0 Const: General: cooperative, comfortable, alert and awake Nutritional Appearance: overweight Orientation/consciousness: patient oriented x3 Resp: Effort & Inspection: normal respiratory effort, able to speak in complete sentences, no respiratory distress and no use of accessory muscles Neuro: General: patient oriented x3 and moves all extremities DS: Data Data Completed and Pending Labs on day of discharge: Laboratory Results - last 24 hr 07/12/24 07/12/24 01:36 09:30 D-Dimer High Sensitivty < 150 VBG pH 7.42 VBG pCO2 33 VBG pO2 64 VBG HCO3 22 VBG O2 Saturation 93.0 VBG Base Excess -1.1 Discharge Plan Discharge Anticipated Discharge Date/Time: 07/12/24 14:21 Patient Disposition: Home, Self-Care Discharge Diagnosis: Atrial fibrillation with rapid ventricular response Referrals: Nayan Ugalde CNP [Primary Care Provider] - 1 Week Discharge Medications: New Eliquis 5 mg Tablet 5 mg PO BID 90 Days Qty: 180 0RF Multaq 400 mg Tablet 400 mg PO BID 90 Days Qty: 180 0RF Continued omeprazole 20 mg Tablet,Delayed Release (Dr/Ec) 20 mg PO BEDTIME cyclobenzaprine 10 mg tablet 10 mg PO BEDTIME PRN (Reason: Back Pain) cholecalciferol (vitamin D3) 50 mcg (2,000 unit) capsule 50 mcg PO DAILY Discontinued metoprolol succinate 50 mg tablet extended release 24 hr 50 mg PO DAILY Discharge Orders: Discharge Order (Routine); Ordered 07/12/24 Ordered By: Dilma Kaufman Activity on Discharge: As tolerated Stand Alone Forms: Patient Portal Discharge page Print Language: Serbian Care Plan Goals: see below Health Concerns: atrial fibrillation with rapid ventricular response status post successful cardioversion JONATHON Plan of Treatment: Take Multaq as prescribed for atrial fibrillation. stop taking metoprolol Take Eliquis as prescribed for atrial fibrillation to reduce the risk of stroke Outpatient CPAP titration study tonight Assessment: see discharge summary
--- NOTE | 2024-07-12 14:43 | MHC.CM.PN ---
PT WILL DC HOME TODAY WITH PLAN FOR SLEEP STUDY [facility] PROVIDED PT ARRANGED TRANSPORT
== END 2024-07-12 15:30 | disposition home or self-care (01) | DRG 201 ==
LOC: HO.ED 21:14 → HO.EDOVER 21:29 → HO.IMC 07-11 14:27
PROVIDERS: Internal Medicine Cardiovascular Disease; Physician Assistant; Admitting Provider Hospitalist; Emergency Provider Emergency Medicine Emergency Medical Services; PCP Nurse Practitioner Family; Visit Provider Physician Assistant Medical
PROC: 5A2204Z Restoration of Cardiac Rhythm, Single (ICD-10-PCS; CPT 93312; principal; 2024-07-11 10:30)
PROC: 5A2204Z Restoration of Cardiac Rhythm, Single (ICD-10-PCS; 2024-07-11 10:30)
DX: I48.19 Other persistent atrial fibrillation (principal); G47.39 Other sleep apnea; Z20.822 Contact with and (suspected) exposure to COVID-19; Z87.891 Personal history of nicotine dependence; Z79.899 Other long term (current) drug therapy
CPT/HCPCS: 0241U; 36415; 71045; 80053; 82803; 83690; 83735; 83880; 84443; 84484; 85025; 85379; 85610; 85730; 92960; 93005; 93306; 99285; J1644; J1885; J2250; J2704; J7120; Q9957

== ENCOUNTER → 2024-07-10 15:31 | Outpatient (BNV) | payer OTHER, SELFPAY | PROVIDERS: Emergency Provider Emergency Medicine Emergency Medical Services; PCP Nurse Practitioner Family; Visit Provider Radiology Diagnostic Radiology | DX: R06.02 Shortness of breath (principal) | CPT/HCPCS: 71045 ==

== ENCOUNTER 2024-07-10 21:01 | Outpatient (BNV) | payer OTHER, SELFPAY | END 2024-07-11 05:59 | PROVIDERS: Admitting Provider Hospitalist; Emergency Provider Emergency Medicine Emergency Medical Services; PCP Nurse Practitioner Family; Visit Provider Internal Medicine Cardiovascular Disease | DX: Q21.12 Patent foramen ovale (principal); I48.91 Unspecified atrial fibrillation; I36.1 Nonrheumatic tricuspid (valve) insufficiency; R94.31 Abnormal electrocardiogram [ECG] [EKG]; Z01.810 Encounter for preprocedural cardiovascular examination | CPT/HCPCS: 76376; 93010; 93306; 93315; 93325 ==

== ENCOUNTER → 2024-07-10 21:01 | Outpatient (BNV) | payer OTHER, SELFPAY | PROVIDERS: Admitting Provider Hospitalist; Emergency Provider Emergency Medicine Emergency Medical Services; PCP Nurse Practitioner Family; Visit Provider Hospitalist | DX: I48.91 Unspecified atrial fibrillation (principal); G47.39 Other sleep apnea | CPT/HCPCS: 99223 ==

== ENCOUNTER → 2024-07-10 21:01 | Outpatient (BNV) | payer OTHER, SELFPAY | PROVIDERS: Admitting Provider Hospitalist; Emergency Provider Emergency Medicine Emergency Medical Services; PCP Nurse Practitioner Family; Visit Provider Physician Assistant Medical | DX: I48.91 Unspecified atrial fibrillation (principal); G47.39 Other sleep apnea | CPT/HCPCS: 99223; 99233; 99239 ==

== ENCOUNTER → 2024-07-10 21:01 | Outpatient (BNV) | payer OTHER, SELFPAY | PROVIDERS: Admitting Provider Hospitalist; Emergency Provider Emergency Medicine Emergency Medical Services; PCP Nurse Practitioner Family; Visit Provider Internal Medicine Cardiovascular Disease | DX: I48.91 Unspecified atrial fibrillation (principal) | CPT/HCPCS: 92960; 99223; 99233 ==

== ENCOUNTER 2024-07-19 09:19 | Outpatient (AMB) | payer OTHER, SELFPAY ==
--- NOTE | 2024-07-19 09:22 | MHC.PC.OV ---
Vital Signs 07/19/24 09:31 07/19/24 09:54 Height 6 ft 9 in Weight 353 lb 2 oz BMI 37.8 BP 132/72 128/80 Blood Pressure Location Rt brachial Rt brachial Position Sitting Sitting Respiration 15 Pulse 83 88 Pulse Source Pulse Oximeter Auscultation Pulse Oximetry (%) 97 Oxygen Delivery Method Room Air Intake Visit Reasons: Discharged on 07/12 from [facility] / Afib Intake Note: Davy presents in the office today for a hospital follow up. Discharged from [facility] for Afib. Visual Effects Editor Required: No Allergies No Known Allergies Allergy (Verified 07/19/24 09:38) Medication List - Last Reconciled 07/19/24 by Nayan Ugalde CNP apixaban (Eliquis) 5 mg PO BID 90 days cholecalciferol (vitamin D3) 50 mcg PO DAILY cyclobenzaprine 10 mg PO BEDTIME PRN dronedarone (Multaq) 400 mg PO BID 90 days omeprazole 20 mg PO BEDTIME Tobacco use date assessed: 07/19/24 Dental Screening Dental Screen Date: 07/19/24 Did you have a dental visit in the last 12 months?: Yes Did you have a dental problem in the last 6 months where you did not have access to dental care?: No Was dental information given to patient?: Patient has dentist HPI HPI Comments History of Present Illness Details 43-year-old male presents for hospital discharge follow-up. His last follow-up with his PCP was on 07/10/2024. He presented with difficulty breathing, palpitations, and AFib. He was advised to go to [facility] ED for further evaluation and treatment. He went to [facility] ED on 07/10/2024. He was admitted at the hospital and discharged on 07/12/2024. DS: Summary Hospital Course Hospital Course: From H&P on the day of admission 43-year-old male with a past medical history of AFib on metoprolol presented to the hospital today with a chief complaint of heart racing and chest pain. Patient reports that over the past few days he has been having heart rates in chest pain. Mentioned that he was recently admitted to the [facility] for rapid AFib and metoprolol dose was increased and subsequently discharged home. After he left the hospital he continued to have the increased heart rate again. Today he went to the PCP's office. He was noted to have heart rate in 170s and subsequently asked him go to the ER for further evaluation. Patient denies any shortness of breath dyspnea on exertion. Denies any GI symptoms. Review of all other systems is negative except mentioned above ER course: Per ER team, patient heart rate was elevated to 140s in the ER. Given multiple doses of IV diltiazem push but harsh and heart rate bones is back. Subsequently started him on the diltiazem drip. Patient also reported having chest pain which improved after Toradol. Troponin negative. No ischemic changes on EKG. Patient was subsequently started on heparin drip. Patient heart rate was in 170 prior to coming to the hospital. Received multiple dose of IV diltiazem with no significant improvement. Subsequently started on diltiazem drip and then developed intermittent bradycardia. TSH, electrolytes normal. Seen by cardiology and underwent successful ESTEFANI cardioversion 07/11, converted to normal sinus rhythm and has remained in sinus rhythm- started on Multaq. Transitioned heparin drip to oral Eliquis JONATHON. Was diagnosed to have sleep apnea but has not yet had titration study. Noted to have significant desaturation overnight. Called to see if sleep lab was able to move up his appointment, they are able to accommodate him tonight for titration study to set up CPAP. 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 on Eliquis 5 mg twice daily, Multaq 400 mg twice daily, cholecalciferol 50 mcg daily, omeprazole 20 mg at bedtime, and cyclobenzaprine 10 mg at bedtime as needed. He notes that his symptoms have completely resolved since his discharged. He denies acute symptoms at this time. He has a followed with [facility] on 08/02/2024 and 08/13/2024. He had a sleep study done with [facility] a week ago. He is awaiting a call back regarding the results and order for BiPAP. He has h/o of smoking cigarettes 1ppd or more for about 20 years. He has been using nicotine gum and has not smoked cigarettes in the past 2 weeks. FORMERLY [facility], [facility] Medical History (Updated 07/18/24 @ 00:02 by Background Daemon) Atrial fibrillation Complex sleep apnea syndrome Marijuana dependence Kidney stones Encounter to establish care Surgical History (Updated 07/18/24 @ 00:02 by Background Daemon) History of esophagogastroduodenoscopy (EGD) History of appendectomy H/O shoulder surgery Family History (Updated 07/19/24 @ 09:37 by Leana Hobbs MA) Mother Hypertension CHF (congestive heart failure) Father Stroke Social History (Updated 07/19/24 @ 09:35 by Leana Hobbs MA) Household Members: Spouse and Children Housing: House Are you a primary furnace caretaker to a significant other at home: No Do you presently have visiting nurse or other home services: No Alcohol intake: never Patient Tobacco Use Status: Former Tobacco user Tobacco use type: Cigarette Cigarette Packs Per Day: 0.5 Cigarettes Per Day: 10.0 Years Smoked: 25 e-Cigarette/Vaping Use: Never Used Second Hand Smoke Exposure: Yes Substance Use Type: Marijuana service: Yes Current occupational status: employed Current occupation: [employer] Current occupational exposures/hazards: Yes Cognitive needs: No Hearing needs: No Vision needs: No Questionnaire PHQ-9 Over the last 2 weeks, how often have you been bothered by any of the following problems? 1. Little interest or pleasure in doing things: not at all 2. Feeling down, depressed, or hopeless: not at all 3. Trouble falling or staying asleep, or sleeping too much: nearly every day 4. Feeling tired or having little energy: nearly every day 5. Poor appetite or overeating: several days 6. Feeling bad about yourself - or that you are a failure or have let yourself or your family down: not at all 7. Trouble concentrating on things, such as reading the newspaper or watching television: several days 8. Moving or speaking so slowly that other people could have noticed. Or the opposite - being so fidgety or restless that you have been moving around a lot more than usual: several days 9. Thoughts that you would be better off or of hurting yourself in some way: not at all Total score: 9 Depression Screening Interpretation: Positive Depression Screening Done: Yes 94078 - PHQ-9 Billing: Patient declined-do not bill Source: Developed by Drs. Michael Kamara, Felicia Asif, Jeffrey Nguyen and colleagues, with an educational darion from [employer] Thrive Questionnaire Date Thrive assessed: 07/19/24 I am a: Patient What is your living situation today?: I have a steady place to live Within the past 12 months, did the food you bought not last and you didn't have the money to get more?: Never true Within the past 12 months, did you worry whether your food would run out before you got money to buy more?: Never true Do you have trouble paying for medicines?: No Do you have trouble getting transportation to medical appointments?: No Do you have trouble paying your heating and electricity bill?: No Do you have trouble taking care of your child, family member or friend?: No Do you have trouble with day-to-day activities such as bathing, preparing meals, shopping, managing finances, etc.?: No Are you currently unemployed and looking for a job?: No Are you interested in more education?: No Please select the resources that you would like help with: None Currently or been in a relationship where the following occur: No concerns reported THRIVE Score: 0 SHANTE-7 AMB Questionnaire SHANTE-7 Date SHANTE - 7 assessed: 07/19/24 Feeling nervous, anxious, or on edge: 1 = Several days Not being able to stop or control worryin = Several days Worrying too much about different things: 1 = Several days Trouble relaxin = More than half the days Being so restless that it is hard to sit still: 1 = Several days Becoming easily annoyed or irritable: 2 = More than half the days Feeling afraid as if something awful might happen: 1 = Several days Total SHANTE-7 score (0-4 normal; 5-9 mild; 10-14 moderate; 15-21 severe): 9 Source: Developed by Drs. Michael Kamara, Felicia Asif, Jeffrey Nguyen and colleagues, with an educational darion from [employer]. SHANTE-7 Assessment Billing SHANTE-7 Assessment Tool: SHANTE-7 Assessment 19296 Review of Systems Const Details: Const Denies chills, Denies fatigue, Denies fever(s), Denies headache(s) and Denies weakness ENT Denies dizziness and Denies headache(s) Card Denies chest pain, Denies lightheadedness, Denies dyspnea and Denies other (Palpitations) Resp Denies cough, Denies dyspnea, Denies wheezing and Denies other ( shortness of breath) GI Denies abdominal pain, Denies melena, Denies hematochezia, Denies change in bowel habits, Denies dyspepsia and Denies nausea Denies hematuria and Denies dysuria Musc Denies abnormal gait, Denies myalgias, Denies arthralgias, Denies numbness and Denies tingling Skin/Breast Denies rash, Denies unusual bruising and Denies wounds Neuro Denies abnormal gait, Denies dizziness, Denies headache(s), Denies memory loss, Denies numbness, Denies Sensory deficit (Neuro), Denies tingling and Denies weakness Psych Denies anxiety, Denies depression, Denies memory loss Endo Denies cold intolerance, Denies fatigue, Denies heat intolerance, Denies polydipsia and Denies polyuria Aller/Immun Denies wheezing Physical exam (Primary Care) Vital Signs: Last Vital Signs Pulse 83 07/19/24 09:31 Resp 15 07/19/24 09:34 BP 132/72 07/19/24 09:31 Pulse Ox 97 07/19/24 09:31 Oxygen Delivery Method Room Air 07/19/24 09:31 BMI result Body Mass Index 37.8 Tobacco/Smoking Status: Tobacco use Status Tobacco use date assessed 07/19/24 07/19/24 09:29 Patient Tobacco Use Status Former Tobacco user 07/19/24 09:35 Tobacco use type Cigarette 07/19/24 09:35 e-Cigarette/Vaping Use Never Used 07/19/24 09:35 PHQ-9: PHQ-9 Score PHQ-9: Total score 9 07/19/24 09:35 Depression Screening Interpretation: Positive Thrive Assessment: Date of Thrive Assessment Date Thrive assessed 07/19/24 07/19/24 09:25 Currently or been in a relationship where the following occur: No concerns reported Const Other: General: no acute distress and well developed Nutritional Appearance: well nourished Orientation/consciousness: patient oriented x3 HENMT Head: Yes normocephalic and Yes atraumatic Eyes General: appearance normal, both eyes and all related structures Pupils: Equal, round and reactive pupils present EOM: EOMs intact bilaterally Resp Effort & Inspection: normal respiratory effort Auscultation: clear to auscultation bilaterally Cardio Rate: regular rate Rhythm: regular rhythm Heart sounds: S1 normal heart sound present, S2 normal heart sound present, no gallops, no murmurs and no rubs GI Palpation (GI): No Abdominal aortic bruit present, Soft to palpation, nontender, No hepatosplenomegaly present and No Rebound tenderness present Auscultation: normal bowel sounds General: Yes no CVA tenderness Back/Spine/Pelvis Back: no CVA tenderness Cervical Spine: cervical ROM normal and No Cervical spine tenderness Thoracic/Lumbar Spine: thoraco-lumbar ROM normal, No pain with thoraco-lumbar ROM, No thoracic spinal tenderness and No lumbar spinal tenderness Extrem General: Yes normal to inspection, No edema and No calf tenderness Skin General: warm and dry. Normal skin color. Normal skin turgor Neuro General: patient oriented x3, gait normal and no focal neuro deficit Cranial nerves: Yes Equal, round and reactive pupils present Cognition (Neuro): normal cognition Gait exam (Neuro): Normal gait present Sensory Exam: No Sensory deficit (Neuro) Psych Appearance: grossly normal Affect: normal affect Attitude: cooperative Thought process: Normal thought process present Coding Level of Care Code Est Pt Level 4 (49403) Diagnoses Atrial fibrillation with rapid ventricular response I48.91 Complex sleep apnea syndrome G47.39 Additional Codes SHANTE-7 Assessment Billing - SHANTE-7 Assessment Tool: SHANTE-7 Assessment 07018 ([id number]) Assessment & Plan Assessment & Plan (1) Atrial fibrillation with rapid ventricular response: Code(s): I48.91 - Unspecified atrial fibrillation Category: Medical Plan: Resolved. Vital signs stable. Heart regular rate and rhythm. Continue to take Eliquis and Multaq as prescribed. Follow-up with cardiology as planned. Encouraged to continue to avoid cigarettes smoking. Fast for 10-12 hours, may drink water, and perform lipid panel blood work. Will review results and make changes as needed. Schedule an extended physical exam for on or after 01/03/2025. Return sooner with symptoms or concerns. Verbalized understanding and agreed with treatment plan. (2) Complex sleep apnea syndrome: Code(s): G47.39 - Other sleep apnea Category: Medical Plan: He had a sleep study done with [facility] a week ago. He is awaiting a call back regarding the results and order for BiPAP. The office nurse will contact sleep medicine regarding updates to the patient. Orders: Orders Lipid Panel Today I48.91 - Unspecified atrial fibrillation
[2024-07-19 09:31] VITALS: BP 132/72; PULSE 83; RESP 15; O2SAT 97; BMI 37.8
[2024-07-19 09:54] VITALS: BP 128/80; PULSE 88
--- OUTSIDE RECORDS SUMMARY | 2024-07-19 10:05 | XMS_ITS | Referral Summary ---
Author Organization [facility] Address [address] [place] [address] Care Team Providers Care Time Stamp Assembler Name Role Phone Rodríguez Mendiola MD Primary Care Provider Encounters Date Type Department Care Team Description 07/08/2024 7:26 AM EDT - 07/08/2024 10:01 AM EDT Emergency [facility] Emergency Department [address] [place] [id number] Randy Hernandez MD Atrial fibrillation with rapid [...] Not on file Procedures * Due to [place] state law, this organization might not be [...] to Health Maintenance Results * Due to [place] state law, this organization might not be sharing negative HIV tests. * Troponin T, High Sensitivity X2 (now + 2hrs) (07/08/2024 8:57 AM EDT) Only the most recent of2 resultswithin the time period is included. Troponin T High Sensitivity 8 6 - 22 ng/L 07/08/2024 9:45 AM EDT [facility] Comment: Fp-Reirtxst-H level of 52 ng/L or higher at [...] be evaluated in line with the 4th [place] Definition of AMI. Troponin baseline and serial [...] MD LAB BLOOD ORDERABLES Final Res ult [facility] [address] [place] [address], [place] [phone] * XR Chest Portable 1 View (07/08/2024 [...] obtain the completed interpretation. ? Workstation ID: [id number] Narrative 07/08/2024 8:03 AM EDT COMPARISON: Radiograph 03/23/2022 FINDINGS AND Resulting Agency Comment [id number] Procedure Note Brayan Rojas MD - 07/08/2024 COMPARISON: Radiograph 03/23/2022 FINDINGS AND IMPRESSION: No consolidation, pleural effusion, or pneumothorax. Normal heart size.No pulmonary vascular congestion. No acute displaced fracture identified. If this radiology report contains a blank impression section, it is anincomplete radiology report. Please contact the interpreting radiologistor applicable radiology division as soon as possible to obtain thecompleted interpretation. Workstation ID: [id number] us Randy Hernandez MD IMG XR PROCEDURES Final Result * (ABNORMAL) CBC Auto Differential (07/08/2024 7:31 AM EDT) WBC 12.9(H) 4.8 - 10.8 10*3/uL 07/08/2024 7:41 AM EDT [facility] RBC 5.19 4.70 - 6.10 10*6/uL 07/08/2024 7:41 AM EDT [facility] Hemoglobin 15.3 13.7 - 16.5 g/dL 07/08/2024 7:41 AM EDT [facility] Hematocrit 46.8 40.5 - 48.5 % 07/08/2024 7:41 AM EDT [facility] MCV 90.2 80.0 - 94.0 fL 07/08/2024 7:41 AM EDT [facility] MCH 29.5 26.0 - 34.0 pg 07/08/2024 7:41 AM EDT [facility] MCHC 32.7 31.0 - 36.0 g/dL 07/08/2024 7:41 AM EDT [facility] RDW 13.6 12.0 - 15.0 % 07/08/2024 7:41 AM EDT [facility] RDW Standard Deviation 45.1(H) 35.1 - 43.9 fL 07/08/2024 7:41 AM EDT [facility] Platelets 290 140 - 440 10*3/uL [facility] MPV 11.3 9.4 - 12.4 fL 07/08/2024 7:41 AM EDT [facility] Neutrophil % 55.5 50.0 - 75.0 % 07/[facility] Immature Grans % 0.8 0.0 - 0.9 % 07/08/2024 7:41 AM EDT [facility] Lymphocyte % 31.8 20.0 - 44.0 % 07/[facility]24 [facility] Monocyte % 9.4 0.0 - 14.0 % 07/08/2024 7:41 AM EDT [facility] Eosinophil % 1.7 0.0 - 5.0 % 07/08/2024 7:41 AM EDT [facility] Basophil % 0.8 0.0 - 2.0 % 07/08/2024 7:41 AM EDT [facility] Neutrophil # 7.15 1.80 - 7.70 10*3/uL 07/08/2024 7:41 AM EDT [facility] Immature Grans # 0.10(H) 0.00 - 0.03 10*3/uL 07/08/2024 7:41 AM EDT [facility] Lymphocyte # 4.10 1.00 - 4.75 10*3/uL 07/08/2024 7:41 AM EDT [facility] Monocyte # 1.20(H) 0.00 - 0.60 10*3/uL 07/08/2024 7:41 AM EDT [facility] Eosinophil # 0.20 0.00 - 0.80 10*3/uL 07/08/2024 7:41 AM EDT [facility] Basophil # 0.10 0.00 - 0.20 10*3/uL 07/08/2024 7:41 AM EDT [facility] nRBC % 0.0 0 - 0 /100 WBCs 07/08/2024 7:41 AM EDT [facility] nRBC # <0.01 0.00 - 0.13 10*3/uL 07/08/2024 7:41 AM EDT [facility] Blood Structure of peripheral vein / Unknown Venipuncture / Unknown 07/08/2024 7:31 AM EDT 07/08/2024 7:37 AM EDT us Randy Hernandez MD LAB BLOOD ORDERABLES Final Res ult [facility] [address] [facility] [address] [place] [address], * D-Dimer, Quantitative (for DVT/PE) (07/08/2024 7:31 AM EDT) [facility] D-Dimer, Quantitative 0.14 0.10 - 0.49 mg/L FEU 07/08/2024 8:06 AM EDT [facility] Comment:A D-DIMER VALUE OF < 0.50 ug/FEU/mL HAS A STRONG NEGATIVE PREDICTIVE VALUE FOR EXCLUSION OF PULMONARY EMBOLIC AND DEEP VEIN THROMBOSIS. CLINICAL CORRELATION IS INDICATED. Blood Structure of peripheral vein / Unknown Venipuncture / Unknown 07/08/2024 7:31 AM EDT 07/08/2024 7:37 AM EDT us Randy Hernandez MD LAB BLOOD ORDERABLES Final Res ult Performing Organization Address [facility]/ZIP Co de Phone Number [facility] [address] [address], [place] [phone] * Magnesium (07/08/2024 7:31 AM EDT) MG 2.0 1.5 - 2.5 mg/dL 07/08/2024 8:06 AM EDT [facility] Blood Structure of peripheral vein / Unknown Venipuncture / Unknown 07/08/2024 7:31 AM EDT 07/08/2024 7:37 AM EDT us Randy Hernandez MD LAB BLOOD ORDERABLES Final Res ult Performing Organization Address [facility] Co de Phone Number [facility] [address] [address], [place] [phone] * (ABNORMAL) CMP - Comprehensive Metabolic Panel (07/08/2024 7:31 AM EDT) NA 141 136 - 145 mmol/L 07/08/2024 8:06 AM EDT [facility] K 4.4 3.5 - 5.1 mmol/L 07/08/2024 8:06 AM EDT [facility] Cl 109 98 - 109 mmol/L 07/08/2024 8:06 AM EDT [facility] CO2 22 22 - 32 mmol/L 07/08/2024 8:06 AM EDT [facility] Anion Gap 14 >=0 07/08/2024 8:06 AM EDT [facility] Glucose 124(H) 60 - 99 mg/dL 07/08/2024 8:06 AM EDT [facility] Creatinine 0.85 0.50 - 1.12 mg/dL 07/08/2024 8:06 AM EDT [facility] Calcium 8.5 8.4 - 10.4 mg/dL 07/08/2024 8:06 AM EDT [facility] Total Protein 6.7 6.6 - 8.7 g/dL 07/08/2024 8:06 AM EDT [facility] Albumin 3.9 3.5 - 5.0 g/dL 07/08/2024 8:06 AM [facility] Bilirubin, Total 0.1(L) 0.2 - 1.2 mg/dL 07/08/2024 8:06 AM T [facility] Alkaline Phosphatase 101 40 - 129 U/L 07/08/2024 8:06 AM EDT [facility] AST 20 0 - 40 U/L 07/08/2024 8:06 AM T [facility] ALT 38 <=41 U/L 07/08/2024 8:06 AM [facility] BUN 12 6 - 20 mg/dL 07/08/2024 8:06 AM [facility] eGFR >90 >=60 mL/min/1. 73m2 07/08/2024 8:06 AM [facility] Comment:The estimated glomer ular filtration [...] 2.1 - 4.2 g/dL 07/08/2024 8:06 AM [facility] A/G Ratio 1.4(L) 1.5 - 3.0 07/08/2024 8:06 AM [facility] Blood Structure of peripheral vein / Unknown Venipuncture / Unknown 07/08/2024 7:31 AM EDT 07/08/2024 7:37 AM EDT us Randy Hernandez MD LAB BLOOD ORDERABLES Final Res ult Performing Organization Address [facility] Co de Phone Number [facility] [address] [facility] [address] [place] [address], [place] [phone] * ECG 12 lead (07/08/2024 7:08 AM EDT) Ventricular Rate EKG 162 BPM MUSE EKG Atrial Rate 250 BPM MUSE EKG MS Interval 132 ms MUSE EKG QRS Interval 88 ms MUSE EKG QT Interval 273 ms MUSE EKG QTC Interval 449 ms MUSE EKG P Paxton -23 degrees MUSE EKG R [place] -29 degrees MUSE EKG T Wave Pa[place] 73 degrees MUSE EKG 07/08/2024 7:08 AM EDT 07/08/2024 8:47 AM EDT Impressions MUSE EKG - 07/08/2024 8:47 AM EDT Atrial fibrillation Borderline left axis deviation Abnormal R-wave progression, early transition Confirmed by Marcin Valle ([id number]) on 07/08/2024 8:47:43 AM us Randy Hernandez MD ECG ORDERABLES Final Result Performing Organization Address [facility] de Phone Number MUSE EKG * CT Abdomen Pelvis without Contrast (08/30/2016 12:24 PM EDT) Anatomical Region Laterality Modality Body Computed Tomogra phy 08/30/2016 1:54 PM EDT Narrative 08/30/2016 2:14 PM EDT ? DEPARTMENT OF RADIOLOGY Patient: DAVY GUILLEN ? Unit #: [id number] Ordering MD: ESHA FERGUSON PA-C ?: 1980 [...] without IV contrast. Liver: ??Allowing for the sje-xrryoipp-mhqgconc technique, the liver demonstrates homogeneous attenuation without [...] DEPARTMENTOF RADIOLOGY Reji t: DAVY GUILLEN Unit #:[id number] Ordering MD: ESHA FERGUSON PA-C :1980 Procedure: CT Abdomen & Pelvis Age:35 Location: [facility] ExamDate: 08/30/16 Status: REG ERRoom/Bed: Primary MD: PatientAcct #: [id number] Order:[id number] Additional Copy: ESHA FERGUSON PA-C - [...] without IV contrast. Liver: Allowing for the tlv-tjkpfqxo-ycrsqsfl technique, the liverdemonstrates homogeneous attenuation without focal [...] or hydroureter. 3. Mildly fatty liver. POI: [place] ELECTRONICALLY SIGNED BY: ANALI HUERTAS MD 08/30/2016 2:[address] PROCEDURES Final Result from Last 3 Months or Most Recently Relevant to Health Maintenance Insurance GENERIC on file [facility] MEDICAID WORKERS COMPENSATION Care Teams Time Stamp Assembler Relationship Specialty Start Date End Date [place]rí[place] [address] [place] [id number] PCP - General Family Medicine 07/08/24
--- OUTSIDE RECORDS SUMMARY | 2024-07-19 10:05 | XMS_ITS | Clinical Summary ---
Author Organization [facility] Address [address] [place] [address] Care Team Providers Care Recordings Librarian Name Role Phone Rodríguez Mendiola MD Primary Care Provider [phone] Allergies No known active allergies Medications cholecalcifero [...] EDT - 07/08/2024 10:01 AM EDT Emergency [facility] Emergency Department [address] [place] [id number] Randy Hernandez MD Atrial fibrillation with rapid [...] - 2023-2 5 season) 2023 09/03/2020, 08/12/2020 Alcohol/Substance Use Screening 04/17/2024 Depression Screening and Follow-Up 04/17/2024 Social Drivers of Health Annual Screening 04/17/2024 Influenza Vaccine (Season Ended) 2024 RSV Vaccine (60+ years old and patients) (1 - 1-dose 75+ series) 2057 Abdominal Aortic Aneurysm (AAA) Screening Completed 08/30/2016 Pneumococcal Vaccine: Pediatric (0-5 Years) and At-Risk Patients (6-50 Years) Aged Out No longer eligible based on patient's age to complete this topic Procedures * Due to [place] state law, this organization might not be [...] Health Maintenance Results * Due to [place] state law, this organization might not be sharing negative HIV tests. * Troponin T, High Sensitivity X2 (now + 2hrs) (07/08/2024 8:57 AM EDT) Only the most recent of2 resultswithin the time period is included. Troponin T High Sensitivity 8 6 - 22 ng/L 07/08/2024 9:45 AM EDT [facility] Comment: Vm-Owwqahtb-H level of 52 ng/L or higher at [...] be evaluated in line with the 4th [place] Definition of AMI. Troponin baseline and serial [...] MD LAB BLOOD ORDERABLES Final Res ult [facility] [address] [place] [address] [address] [place] [address], [place] [phone] * XR Chest Portable 1 View (07/08/2024 [...] obtain the completed interpretation. ? Workstation ID: [id number] Narrative 07/08/2024 8:03 AM EDT COMPARISON: Radiograph 03/23/2022 FINDINGS AND Resulting Agency Comment [id number] Procedure Note Brayan Rojas MD - 07/08/2024 COMPARISON: Radiograph 03/23/2022 FINDINGS AND IMPRESSION: No consolidation, pleural effusion, or pneumothorax. Normal heart size.No pulmonary vascular congestion. No acute displaced fracture identified. If this radiology report contains a blank impression section, it is anincomplete radiology report. Please contact the interpreting radiologistor applicable radiology division as soon as possible to obtain thecompleted interpretation. Workstation ID: [id number] us Randy Hernandez MD IMG XR PROCEDURES Final Result * (ABNORMAL) CBC Auto Differential (07/08/2024 7:31 AM EDT) WBC 12.9(H) 4.8 - 10.8 10*3/uL 07/08/2024 7:41 AM EDT [facility] RBC 5.19 4.70 - 6.10 10*6/uL 07/08/2024 7:41 AM EDT [facility] Hemoglobin 15.3 13.7 - 16.5 g/dL 07/08/2024 7:41 AM EDT [facility] Hematocrit 46.8 40.5 - 48.5 % 07/08/2024 7:41 AM EDT [facility] MCV 90.2 80.0 - 94.0 fL 07/08/2024 7:41 AM EDT [facility] MCH 29.5 26.0 - 34.0 pg 07/08/2024 7:41 AM EDT [facility] MCHC 32.7 31.0 - 36.0 g/dL 07/08/2024 7:41 AM EDT [facility] RDW 13.6 12.0 - 15.0 % 07/08/2024 7:41 AM EDT [facility] RDW Standard Deviation 45.1(H) 35.1 - 43.9 fL 07/08/2024 7:41 AM EDT [facility] Platelets 290 140 - 440 10*3/uL 07/08/2024 7:41 AM EDT [facility] MPV 11.3 9.4 - 12.4 fL 07/08/2024 7:41 AM EDT [facility] Neutrophil % 55.5 50.0 - 75.0 % 07/08/2024 7:41 AM EDT [facility] Immature Grans % 0.8 0.0 - 0.9 % 07/08/2024 7:41 AM EDT [facility] Lymphocyte % 31.8 20.0 - 44.0 % 07/08/2024 7:41 AM EDT [facility] Monocyte % 9.4 0.0 - 14.0 % 07/08/2024 7:41 AM EDT [facility] Eosinophil % 1.7 0.0 - 5.0 % 07/08/2024 7:41 AM EDT [facility] Basophil % 0.8 0.0 - 2.0 % 07/08/2024 7:41 AM EDT [facility] Neutrophil # 7.15 1.80 - 7.70 10*3/uL 07/08/2024 7:41 AM EDT [facility] Immature Grans # 0.10(H) 0.00 - 0.03 10*3/uL 07/08/2024 7:41 AM EDT [facility] Lymphocyte # 4.10 1.00 - 4.75 10*3/uL 07/08/2024 7:41 AM EDT [facility] Monocyte # 1.20(H) 0.00 - 0.60 10*3/uL 07/08/2024 7:41 AM EDT [facility] Eosinophil # 0.20 0.00 - 0.80 10*3/uL 07/08/2024 7:41 AM EDT [facility] Basophil # 0.10 0.00 - 0.20 10*3/uL 07/08/2024 7:41 AM EDT [facility] nRBC % 0.0 0 - 0 /100 WBCs 07/08/2024 7:41 AM EDT [facility] nRBC # <0.01 0.00 - 0.13 10*3/uL 07/08/2024 7:41 AM EDT [facility] Blood Structure of peripheral vein / Unknown Venipuncture / Unknown 07/08/2024 7:31 AM EDT 07/08/2024 7:37 AM EDT us Randy Hernandez MD LAB BLOOD ORDERABLES Final Res ult Performing Organization Address [facility] Co de Phone Number [facility] [address] [address], * D-Dimer, Quantitative (for DVT/PE) (07/08/2024 7:31 AM EDT) D-Dimer, Quantitative 0.14 0.10 - 0.49 mg/L FEU 07/08/2024 8:06 AM EDT [facility] Comment:A D-DIMER VALUE OF < 0.50 ug/FEU/mL HAS A STRONG NEGATIVE PREDICTIVE VALUE FOR EXCLUSION OF PULMONARY EMBOLIC AND DEEP VEIN THROMBOSIS. CLINICAL CORRELATION IS INDICATED. Blood Structure of peripheral vein / Unknown Venipuncture / Unknown 07/08/2024 7:31 AM EDT 07/08/2024 7:37 AM EDT us Randy Hernandez MD LAB BLOOD ORDERABLES Final Res ult Performing Organization Address [facility] Co de Phone Number [facility] [address] [address], [place] [phone] * Magnesium (07/08/2024 7:31 AM EDT) MG 2.0 1.5 - 2.5 mg/dL 07/08/2024 8:06 AM EDT [facility] Blood Structure of peripheral vein / Unknown Venipuncture / Unknown 07/08/2024 7:31 AM EDT 07/08/2024 7:37 AM EDT us Randy Hernandez MD LAB BLOOD ORDERABLES Final Res ult [facility] [address] [place] [address], * (ABNORMAL) CMP - Comprehensive Metabolic Panel (07/08/2024 7:31 AM EDT) NA 141 136 - 145 mmol/L 07/08/2024 8:06 AM EDT [facility] K 4.4 3.5 - 5.1 mmol/L 07/08/2024 8:06 AM EDT [facility] Cl 109 98 - 109 mmol/L 07/08/2024 8:06 AM EDT [facility] CO2 22 22 - 32 mmol/L 07/08/2024 8:06 AM EDT [facility] Anion Gap 14 >=0 07/08/2024 8:06 AM EDT [facility] Glucose 124(H) 60 - 99 mg/dL 07/08/2024 8:06 AM EDT [facility] Creatinine 0.85 0.50 - 1.12 mg/dL 07/08/2024 8:06 AM EDT [facility] Calcium 8.5 8.4 - 10.4 mg/dL 07/08/2024 8:06 AM EDT [facility] Total Protein 6.7 6.6 - 8.7 g/dL 07/08/2024 8:06 AM EDT [facility] Albumin 3.9 3.5 - 5.0 g/dL 07/08/2024 8:06 AM EDT [facility] Bilirubin, Total 0.1(L) 0.2 - 1.2 mg/dL 07/08/2024 8:06 AM EDT [facility] Alkaline Phosphatase 101 40 - 129 U/L 07/08/2024 8:06 AM EDT [facility] AST 20 0 - 40 U/L 07/08/2024 8:06 AM EDT [facility] ALT 38 <=41 U/L 07/08/2024 8:06 AM EDT [facility] BUN 12 6 - 20 mg/dL 07/08/2024 8:06 AM EDT [facility] eGFR >90 >=60 mL/min/1. 73m2 07/08/2024 8:06 AM EDT [facility] Comment:The estimated glomer ular filtration rate [...] - 4.2 g/dL 07/08/2024 8:06 AM EDT [facility] A/G Ratio 1.4(L) 1.5 - 3.0 07/08/2024 8:06 AM EDT [facility] Blood Structure of peripheral vein / Unknown Venipuncture / Unknown 07/08/2024 7:31 AM EDT 07/08/2024 7:37 AM EDT us Randy Hernandez MD LAB BLOOD ORDERABLES Final Res ult [facility] [address] [place] [id number], * ECG 12 lead (07/08/2024 7:08 AM EDT) Ventricular Rate EKG 162 BPM MUSE EKG Atrial Rate 250 BPM MUSE EKG TX Interval 132 ms MUSE EKG QRS Interval 88 ms MUSE EKG QT Interval 273 ms MUSE EKG QTC Interval 449 ms MUSE EKG P [place] -23 degrees MUSE EKG R [place] -29 degrees MUSE EKG T Wave [place] 73 degrees MUSE EKG 07/08/2024 7:08 AM [...] Patient: DAVY GUILLEN Corazon ? Unit #: [id number] Ordering MD: EHSA FERGUSON PA-C ?: 1980 Procedure: CT Abdomen [...] without IV contrast. Liver: ??Allowing for the sqm-pnmjtxah-vzphmxgx technique, the liver demonstrates homogeneous attenuation without [...] or hydroureter. 3. Mildly fatty liver. POI: [place], [place] ELECTRONICALLY SIGNED BY: ??ANALI HUERTAS MD 08/30/2016 2:12 PM Procedure Note Provider, Historical Conversion - 01/13/2023 DEPARTMENTOF RADIOLOGY Reji t: DAVY GUILLEN Unit #:[id number] Ordering MD: ESHA FERGUSON PA-C :1980 Procedure: CT Abdomen & Pelvis Age:35 Location: [facility] ExamDate: 08/30/16 Status: REG ERRoom/Bed: Primary MD: Lakhwinder #: [id number] Order:CTABPEL Additional Copy: ESHA FERGUSON PA-C - [...] without IV contrast. Liver: Allowing for the tfy-mikbjtbp-bjlirgvu technique, the liverdemonstrates homogeneous attenuation without focal [...] Maintenance Insurance [place] [id number] [employer] Care Teams Recordings Librarian Relationship Specialty Start Date End Date Rodríguez Mendiola MD [address] [place] [phone] PCP - General Family Medicine 07/08/24
== END 2024-07-19 10:01 | disposition home or self-care (01) ==
LOC: HO.HMCFM 09:19
PROVIDERS: PCP Nurse Practitioner Family; Visit Provider Nurse Practitioner Family
DX: I48.91 Unspecified atrial fibrillation (principal); G47.39 Other sleep apnea

== ENCOUNTER → 2024-07-19 09:19 | Outpatient (BNVA) | payer OTHER, SELFPAY | PROVIDERS: PCP Nurse Practitioner Family; Visit Provider Nurse Practitioner Family | DX: I48.91 Unspecified atrial fibrillation (principal); G47.39 Other sleep apnea | CPT/HCPCS: 96127; 99212 ==

== ENCOUNTER → 2024-08-02 14:37 | Outpatient (REF) | payer OTHER, SELFPAY ==
--- OUTSIDE RECORDS SUMMARY | 2024-08-02 14:53 | XMS_ITS | Clinical Summary ---
Author Organization [facility] Address [address] [place] [address] Care Team Providers Care Instructional Assistant Name Role Phone Rodríguez Mendiola MD Primary Care Provider [phone] Allergies No known active allergies Medications cholecalcifero [...] EDT - 07/08/2024 10:01 AM EDT Emergency [facility] Emergency Department [address] [place] [id number] Randy Hernandez MD Atrial fibrillation with rapid [...] complete this topic Procedures * Due to [place] state law, this organization might not be [...] to Health Maintenance Results * Due to [place] state law, this organization might not be sharing negative HIV tests. * Troponin T, High Sensitivity X2 (now + 2hrs) (07/08/2024 8:57 AM EDT) Only the most recent of2 resultswithin the time period is included. Troponin T High Sensitivity 8 6 - 22 ng/L 07/08/2024 9:45 AM EDT [facility] Comment: Tq-Ajsqvjpq-B level of 52 ng/L or higher at [...] be evaluated in line with the 4th [place] Definition of AMI. Troponin baseline and serial [...] MD LAB BLOOD ORDERABLES Final Res ult [facility] [address] [place] [address] [address] [place] [address], [place] [phone] * XR Chest Portable 1 View (07/08/2024 [...] obtain the completed interpretation. ? Workstation ID: [id number] Narrative 07/08/2024 8:03 AM EDT COMPARISON: Radiograph 03/23/2022 FINDINGS AND Resulting Agency Comment [id number] Procedure Note Brayan Rojas MD - 07/08/2024 COMPARISON: Radiograph 03/23/2022 FINDINGS AND IMPRESSION: No consolidation, pleural effusion, or pneumothorax. Normal heart size.No pulmonary vascular congestion. No acute displaced fracture identified. If this radiology report contains a blank impression section, it is anincomplete radiology report. Please contact the interpreting radiologistor applicable radiology division as soon as possible to obtain thecompleted interpretation. Workstation ID: [id number] us Randy Hernandez MD IMG XR PROCEDURES Final Result * (ABNORMAL) CBC Auto Differential (07/08/2024 7:31 AM EDT) WBC 12.9(H) 4.8 - 10.8 10*3/uL 07/08/2024 7:41 AM EDT [facility] RBC 5.19 4.70 - 6.10 10*6/uL 07/08/2024 7:41 AM EDT [facility] Hemoglobin 15.3 13.7 - 16.5 g/dL 07/08/2024 7:41 AM EDT [facility] Hematocrit 46.8 40.5 - 48.5 % 07/08/2024 7:41 AM EDT [facility] MCV 90.2 80.0 - 94.0 fL 07/08/2024 7:41 AM EDT [facility] MCH 29.5 26.0 - 34.0 pg 07/08/2024 7:41 AM EDT [facility] MCHC 32.7 31.0 - 36.0 g/dL 07/08/2024 7:41 AM EDT [facility] RDW 13.6 12.0 - 15.0 % 07/08/2024 7:41 AM EDT [facility] RDW Standard Deviation 45.1(H) 35.1 - 43.9 fL 07/08/2024 7:41 AM EDT [facility] Platelets 290 140 - 440 10*3/uL 07/08/2024 7:41 AM EDT [facility] MPV 11.3 9.4 - 12.4 fL 07/08/2024 7:41 AM EDT [facility] Neutrophil % 55.5 50.0 - 75.0 % 07/08/2024 7:41 AM EDT [facility] Immature Grans % 0.8 0.0 - 0.9 % 07/08/2024 7:41 AM EDT [facility] Lymphocyte % 31.8 20.0 - 44.0 % 07/08/2024 7:41 AM EDT [facility] Monocyte % 9.4 0.0 - 14.0 % 07/08/2024 7:41 AM EDT [facility] Eosinophil % 1.7 0.0 - 5.0 % 07/08/2024 7:41 AM EDT [facility] Basophil % 0.8 0.0 - 2.0 % 07/08/2024 7:41 AM EDT [facility] Neutrophil # 7.15 1.80 - 7.70 10*3/uL 07/08/2024 7:41 AM EDT [facility] Immature Grans # 0.10(H) 0.00 - 0.03 10*3/uL 07/08/2024 7:41 AM EDT [facility] Lymphocyte # 4.10 1.00 - 4.75 10*3/uL 07/08/2024 7:41 AM EDT [facility] Monocyte # 1.20(H) 0.00 - 0.60 10*3/uL 07/08/2024 7:41 AM EDT [facility] Eosinophil # 0.20 0.00 - 0.80 10*3/uL 07/08/2024 7:41 AM EDT [facility] Basophil # 0.10 0.00 - 0.20 10*3/uL 07/08/2024 7:41 AM EDT [facility] nRBC % 0.0 0 - 0 /100 WBCs 07/08/2024 7:41 AM EDT [facility] nRBC # <0.01 0.00 - 0.13 10*3/uL 07/08/2024 7:41 AM EDT [facility] Blood Structure of peripheral vein / Unknown Venipuncture / Unknown 07/08/2024 7:31 AM EDT 07/08/2024 7:37 AM EDT us Randy Hernandez MD LAB BLOOD ORDERABLES Final Res ult Performing Organization Address [facility] Co de Phone Number [facility] [address] [address], * D-Dimer, Quantitative (for DVT/PE) (07/08/2024 7:31 AM EDT) D-Dimer, Quantitative 0.14 0.10 - 0.49 mg/L FEU 07/08/2024 8:06 AM EDT [facility] Comment:A D-DIMER VALUE OF < 0.50 ug/FEU/mL HAS A STRONG NEGATIVE PREDICTIVE VALUE FOR EXCLUSION OF PULMONARY EMBOLIC AND DEEP VEIN THROMBOSIS. CLINICAL CORRELATION IS INDICATED. Blood Structure of peripheral vein / Unknown Venipuncture / Unknown 07/08/2024 7:31 AM EDT 07/08/2024 7:37 AM EDT us Randy Hernandez MD LAB BLOOD ORDERABLES Final Res ult Performing Organization Address [facility] Co de Phone Number [facility] [address] [address], [place] [phone] * Magnesium (07/08/2024 7:31 AM EDT) MG 2.0 1.5 - 2.5 mg/dL 07/08/2024 8:06 AM EDT [facility] Blood Structure of peripheral vein / Unknown Venipuncture / Unknown 07/08/2024 7:31 AM EDT 07/08/2024 7:37 AM EDT us Randy Hernandez MD LAB BLOOD ORDERABLES Final Res ult [facility] [address] [place] [address], * (ABNORMAL) CMP - Comprehensive Metabolic Panel (07/08/2024 7:31 AM EDT) NA 141 136 - 145 mmol/L 07/08/2024 8:06 AM EDT [facility] K 4.4 3.5 - 5.1 mmol/L 07/08/2024 8:06 AM EDT [facility] Cl 109 98 - 109 mmol/L 07/08/2024 8:06 AM EDT [facility] CO2 22 22 - 32 mmol/L 07/08/2024 8:06 AM EDT [facility] Anion Gap 14 >=0 07/08/2024 8:06 AM EDT [facility] Glucose 124(H) 60 - 99 mg/dL 07/08/2024 8:06 AM EDT [facility] Creatinine 0.85 0.50 - 1.12 mg/dL 07/08/2024 8:06 AM EDT [facility] Calcium 8.5 8.4 - 10.4 mg/dL 07/08/2024 8:06 AM EDT [facility] Total Protein 6.7 6.6 - 8.7 g/dL 07/08/2024 8:06 AM EDT [facility] Albumin 3.9 3.5 - 5.0 g/dL 07/08/2024 8:06 AM EDT [facility] Bilirubin, Total 0.1(L) 0.2 - 1.2 mg/dL 07/08/2024 8:06 AM EDT [facility] Alkaline Phosphatase 101 40 - 129 U/L 07/08/2024 8:06 AM EDT [facility] AST 20 0 - 40 U/L 07/08/2024 8:06 AM EDT [facility] ALT 38 <=41 U/L 07/08/2024 8:06 AM EDT [facility] BUN 12 6 - 20 mg/dL 07/08/2024 8:06 AM EDT [facility] eGFR >90 >=60 mL/min/1. 73m2 07/08/2024 8:06 AM EDT [facility] Comment:The estimated glomer ular filtration [...] - 4.2 g/dL 07/08/2024 8:06 AM EDT [facility] A/G Ratio 1.4(L) 1.5 - 3.0 07/08/2024 8:06 AM EDT [facility] Blood Structure of peripheral vein / Unknown Venipuncture / Unknown 07/08/2024 7:31 AM EDT 07/08/2024 7:37 AM EDT us Randy Hernandez MD LAB BLOOD ORDERABLES Final Res ult [facility] [address] [place] [address], * ECG 12 lead (07/08/2024 7:08 AM EDT) Ventricular Rate EKG 162 BPM MUSE EKG Atrial Rate 250 BPM MUSE EKG AL Interval 132 ms MUSE EKG QRS Interval 88 ms MUSE EKG QT Interval 273 ms MUSE EKG QTC Interval 449 ms MUSE EKG P [place] -23 degrees MUSE EKG R [place] -29 degrees MUSE EKG T Wave [place] 73 degrees MUSE EKG 07/08/2024 7:08 AM [...] Patient: DAVY GUILLEN Corazon ? Unit #: [id number] Ordering MD: ESHA FERGUSON PA-C ?: 1980 [...] without IV contrast. Liver: ??Allowing for the xyw-paficwvh-jnqlldry technique, the liver demonstrates homogeneous attenuation without [...] or hydroureter. 3. Mildly fatty liver. POI: [place], [place] ELECTRONICALLY SIGNED BY: ??ANALI HUERTAS MD 08/30/2016 2:12 PM Procedure Note Provider, Historical Conversion - 01/13/2023 DEPARTMENTOF RADIOLOGY Reji t: DAVY GUILLEN Unit #:[id number] Ordering MD: ESHA FERGUSON PA-C :1980 Procedure: CT Abdomen & Pelvis Age:35 Location: [facility] ExamDate: 08/30/16 Status: REG ERRoom/Bed: Primary MD: Lakhwinder #: [id number] Order:[id number] Additional Copy: ESHA FERGUSON PA-C - [...] without IV contrast. Liver: Allowing for the rnv-duuvgrag-megcrjha technique, the liverdemonstrates homogeneous attenuation without focal [...] Insurance [place] [id number] [employer] Care Teams Instructional Assistant Relationship Specialty Start Date End Date Rodríguez Mendiola MD [address] [place] [phone] PCP - General Family Medicine 07/08/24
--- OUTSIDE RECORDS SUMMARY | 2024-08-02 14:53 | XMS_ITS | Referral Summary ---
Author Organization [facility] Address [address] [place] [address] Care Team Providers Care Housecleaner Floor Name Role Phone Rodríguez Mendiola MD Primary Care Provider [phone] Encounters Date Type Department Care Team Description 07/08/2024 7:26 AM EDT - 07/08/2024 10:01 AM EDT [facility] Emergency Department [address] [place] [id number] Randy Hernandez MD Atrial fibrillation with rapid [...] Not on file Procedures * Due to [place] state law, [...] - 22 ng/L 07/08/2024 9:45 AM EDT [facility] Comment: Az-Cifbmely-B level of 52 ng/L or higher at [...] be evaluated in line with the 4th [place] Definition of AMI. Troponin baseline and serial [...] MD LAB BLOOD ORDERABLES Final Res ult [facility] [address] [place] [address], [place] [phone] * XR Chest Portable 1 View (07/08/2024 [...] obtain the completed interpretation. ? Workstation ID: [id number] Narrative 07/08/2024 8:03 AM EDT COMPARISON: Radiograph 03/23/2022 FINDINGS AND Resulting Agency Comment [id number] Procedure Note Brayan Rojas MD - 07/08/2024 COMPARISON: Radiograph 03/23/2022 FINDINGS AND IMPRESSION: No consolidation, pleural effusion, or pneumothorax. Normal heart size.No pulmonary vascular congestion. No acute displaced fracture identified. If this radiology report contains a blank impression section, it is anincomplete radiology report. Please contact the interpreting radiologistor applicable radiology division as soon as possible to obtain thecompleted interpretation. Workstation ID: [id number] us Randy Hernandez MD IMG XR PROCEDURES Final Result * (ABNORMAL) CBC Auto Differential (07/08/2024 7:31 AM EDT) WBC 12.9(H) 4.8 - 10.8 10*3/uL 07/08/2024 7:41 AM EDT [facility] RBC 5.19 4.70 - 6.10 10*6/uL 07/08/2024 7:41 AM EDT [facility] Hemoglobin 15.3 13.7 - 16.5 g/dL 07/08/2024 7:41 AM EDT [facility] Hematocrit 46.8 40.5 - 48.5 % 07/08/2024 7:41 AM EDT [facility] MCV 90.2 80.0 - 94.0 fL 07/08/2024 7:41 AM EDT [facility] MCH 29.5 26.0 - 34.0 pg 07/08/2024 7:41 AM EDT [facility] MCHC 32.7 31.0 - 36.0 g/dL 07/08/2024 7:41 AM EDT [facility] RDW 13.6 12.0 - 15.0 % 07/08/2024 7:41 AM EDT [facility] RDW Standard Deviation 45.1(H) 35.1 - 43.9 fL 07/08/2024 7:41 AM EDT [facility] Platelets 290 140 - 440 10*3/uL 07/08/2024 7:41 [facility] MPV 11.3 9.4 - 12.4 fL 07/08/2024 7:41 AM EDT [facility] Neutrophil % 55.5 50.0 - 75.0 % 07/08/2024 7:41 [facility] Immature Grans % 0.8 0.0 - 0.9 % 07/08/2024 7:41 AM EDT [facility] Lymphocyte % 31.8 20.0 - 44.0 % 07/08/2024 7:41 [facility] Monocyte % 9.4 0.0 - 14.0 % 07/08/2024 7:41 AM EDT [facility] Eosinophil % 1.7 0.0 - 5.0 % 07/08/2024 7:41 AM EDT [facility] Basophil % 0.8 0.0 - 2.0 % 07/08/2024 7:41 AM EDT [facility] Neutrophil # 7.15 1.80 - 7.70 10*3/uL 07/08/2024 7:41 AM EDT [facility] Immature Grans # 0.10(H) 0.00 - 0.03 10*3/uL 07/08/2024 7:41 AM EDT [facility] Lymphocyte # 4.10 1.00 - 4.75 10*3/uL 07/08/2024 7:41 AM EDT [facility] Monocyte # 1.20(H) 0.00 - 0.60 10*3/uL 07/08/2024 7:41 AM EDT [facility] Eosinophil # 0.20 0.00 - 0.80 10*3/uL 07/08/2024 7:41 AM EDT [facility] Basophil # 0.10 0.00 - 0.20 10*3/uL 07/08/2024 7:41 AM EDT [facility] nRBC % 0.0 0 - 0 /100 WBCs 07/08/2024 7:41 AM EDT [facility] nRBC # <0.01 0.00 - 0.13 10*3/uL 07/08/2024 7:41 AM EDT [facility] Blood Structure of peripheral vein / Unknown Venipuncture / Unknown 07/08/2024 7:31 AM EDT 07/08/2024 7:37 AM EDT us Randy Hernandez MD LAB BLOOD ORDERABLES Final Res ult [facility] [address] [facility] [place] [address], * D-Dimer, Quantitative (for DVT/PE) (07/08/2024 7:31 AM EDT) [facility] D-Dimer, Quantitative 0.14 0.10 - 0.49 mg/L FEU 07/08/2024 8:06 AM EDT [facility] Comment:A D-DIMER VALUE OF < 0.50 ug/FEU/mL HAS A STRONG NEGATIVE PREDICTIVE VALUE FOR EXCLUSION OF PULMONARY EMBOLIC AND DEEP VEIN THROMBOSIS. CLINICAL CORRELATION IS INDICATED. Blood Structure of peripheral vein / Unknown Venipuncture / Unknown 07/08/2024 7:31 AM EDT 07/08/2024 7:37 AM EDT us Randy Hernandez MD LAB BLOOD ORDERABLES Final Res ult Performing Organization Address [facility]/ZIP Co de Phone Number [facility] [address] [address], [place] [phone] * Magnesium (07/08/2024 7:31 AM EDT) MG 2.0 1.5 - 2.5 mg/dL 07/08/2024 8:06 AM EDT [facility] Blood Structure of peripheral vein / Unknown Venipuncture / Unknown 07/08/2024 7:31 AM EDT 07/08/2024 7:37 AM EDT us Randy Hernandez MD LAB BLOOD ORDERABLES Final Res ult Performing Organization Address [facility] Co de Phone Number [facility] [address] [address], [place] [phone] * (ABNORMAL) CMP - Comprehensive Metabolic Panel (07/08/2024 7:31 AM EDT) NA 141 136 - 145 mmol/L 07/08/2024 8:06 AM EDT [facility] K 4.4 3.5 - 5.1 mmol/L 07/08/2024 8:06 AM EDT [facility] Cl 109 98 - 109 mmol/L 07/08/2024 8:06 AM EDT [facility] CO2 22 22 - 32 mmol/L 07/08/2024 8:06 AM EDT [facility] Anion Gap 14 >=0 07/08/2024 8:06 AM EDT [facility] Glucose 124(H) 60 - 99 mg/dL 07/08/2024 8:06 AM EDT [facility] Creatinine 0.85 0.50 - 1.12 mg/dL 07/08/2024 8:06 AM EDT [facility] Calcium 8.5 8.4 - 10.4 mg/dL 07/08/2024 8:06 AM EDT [facility] Total Protein 6.7 6.6 - 8.7 g/dL 07/08/2024 8:06 AM EDT [facility] Albumin 3.9 3.5 - 5.0 g/dL 07/08/2024 8:06 AM [facility] Bilirubin, Total 0.1(L) 0.2 - 1.2 mg/dL 07/08/2024 8:06 AM T [facility] Alkaline Phosphatase 101 40 - 129 U/L 07/08/2024 8:06 AM EDT [facility] AST 20 0 - 40 U/L 07/08/2024 8:06 AM T [facility] ALT 38 <=41 U/L 07/08/2024 8:06 AM [facility] BUN 12 6 - 20 mg/dL 07/08/2024 8:06 AM [facility] eGFR >90 >=60 mL/min/1. 73m2 07/08/2024 8:06 AM [facility] Comment:The estimated glomer ular filtration [...] 2.1 - 4.2 g/dL 07/08/2024 8:06 AM [facility] A/G Ratio 1.4(L) 1.5 - 3.0 07/08/2024 8:06 AM [facility] Blood Structure of peripheral vein / Unknown Venipuncture / Unknown 07/08/2024 7:31 AM EDT 07/08/2024 7:37 AM EDT us Randy Hernandez MD LAB BLOOD ORDERABLES Final Res ult Performing Organization Address [facility] Co de Phone Number [facility] [address] [facility] [address] [place] [address], [place] [phone] * ECG 12 lead (07/08/2024 7:08 AM EDT) Ventricular Rate EKG 162 BPM MUSE EKG Atrial Rate 250 BPM MUSE EKG HI Interval 132 ms MUSE EKG QRS Interval 88 ms MUSE EKG QT Interval 273 ms MUSE EKG QTC Interval 449 ms MUSE EKG P Milam -23 degrees MUSE EKG R Milam -29 degrees MUSE EKG T Wave Milam 73 degrees MUSE EKG 07/08/2024 7:08 AM EDT 07/08/2024 8:47 AM EDT Impressions MUSE EKG - 07/08/2024 8:47 AM EDT Atrial fibrillation Borderline left axis deviation Abnormal R-wave progression, early transition Confirmed by Marcin Valle ([id number]) on 07/08/2024 8:47:43 AM us Randy Hernandez MD ECG ORDERABLES Final Result Performing Organization Address [facility] de Phone Number MUSE EKG * CT Abdomen Pelvis without Contrast (08/30/2016 12:24 PM EDT) Anatomical Region Laterality Modality Body Computed Tomogra phy 08/30/2016 1:54 PM EDT Narrative 08/30/2016 2:14 PM EDT ? DEPARTMENT OF RADIOLOGY Patient: DAVY GUILLEN ? Unit #: [id number] Ordering MD: ESHA FERGUSON PA-C ?: 1980 [...] without IV contrast. Liver: ??Allowing for the plk-uhmzkqpx-deoznqru technique, the liver demonstrates homogeneous attenuation without [...] DEPARTMENTOF RADIOLOGY Reji t: DAVY GUILLEN Unit #:[id number] Ordering MD: ESHA FERGUSON PA-C :1980 Procedure: CT Abdomen & Pelvis Age:35 Location: [facility] ExamDate: 08/30/16 Status: REG ERRoom/Bed: Primary MD: PatientAcct #: [id number] Order:[id number] Additional Copy: ESHA FERGUSON PA-C - [...] without IV contrast. Liver: Allowing for the vwi-kqsdqels-djhqjsyb technique, the liverdemonstrates homogeneous attenuation without focal [...] or hydroureter. 3. Mildly fatty liver. 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
== END ==
LOC: HO.CARD 14:37
PROVIDERS: PCP Nurse Practitioner Family; Visit Provider Internal Medicine Cardiovascular Disease
DX: I48.91 Unspecified atrial fibrillation (principal)
CPT/HCPCS: 93242

== ENCOUNTER → 2024-08-02 14:41 | Outpatient (BNV) | payer OTHER, SELFPAY | PROVIDERS: PCP Nurse Practitioner Family; Visit Provider Internal Medicine Cardiovascular Disease | DX: I49.8 Other specified cardiac arrhythmias (principal) | CPT/HCPCS: 93244 ==

== ENCOUNTER 2024-08-09 13:17 | Outpatient (AMB) | payer OTHER, SELFPAY ==
[2024-08-09 13:21] VITALS: BP 120/80; PULSE 93; BMI 37.6
--- NOTE | 2024-08-09 13:21 | A.OFFVIS_ITS ---
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 Patient with medical history of obstructive sleep apnea, obesity, and AFib 1st diagnosed approximately 6 years ago, with prior successful conversion with metoprolol and no recurrence until recently. The patient notes that he was recently admitted to [facility] for rapid AFib and was discharged with the increased dose of metoprolol. Shortly thereafter, he experienced chest pain and shortness of breath prompting him to visit his primary care's office where he was found to be in AFib with a RVR with a heart rate in the 70s, and was referred to the ER. Patient was treated with Cardizem therapy and is now status post ESTEFANI cardioversion on 07/11/[address] Hilario. He was started on Multaq and Eliquis. During the procedure the patient developed some hypoxemia due to his underlying sleep apnea and was discharged on a BiPAP machine for home use. Today, the patient reports experiencing 2-3 episodes of sharp chest pain each lasting few minutes, accompanied by palpitations. His smart watch recorded heart rates in the 120s during these episodes. Patient underwent Holter monitoring which is pending at this time. The patient notes that he has episodes occurred at rest and were not exertional in nature. He is otherwise denying any exertional shortness or breath, dizziness, fatigue, orthopnea, PND, leg edema, presyncope, or syncope. Patient reports adherence to all his medications and BiPAP therapy. [facility] Medical History Atrial fibrillation Complex sleep apnea syndrome Marijuana dependence Kidney stones Encounter to establish care Surgical History History of esophagogastroduodenoscopy (EGD) History of appendectomy H/O shoulder surgery Family History Mother Hypertension CHF (congestive heart failure) Father Stroke Social History Household Members: Spouse and Children Housing: House Are you a primary care transition coordinator to a significant other at home: No Do you presently have visiting nurse or other home services: No Alcohol intake: never Patient Tobacco Use Status: Former Tobacco user Tobacco use type: Cigarette Cigarette Packs Per Day: 0.5 Cigarettes Per Day: 10.0 Years Smoked: 25 e-Cigarette/Vaping Use: Never Used Second Hand Smoke Exposure: Yes Substance Use Type: Marijuana service: Yes Current occupational status: employed 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 Current occupational exposures/hazards: Yes Cognitive needs: No Hearing needs: No Vision needs: No Review of Systems ENT Reports dizziness Card Denies chest pain, Denies chest pain at rest, Denies chest pain with activity, Denies rapid heart rate, Denies pedal edema, Denies edema, Denies leg edema, Denies lightheadedness, Denies palpitations, Denies dyspnea, Denies dyspnea on exertion and Denies orthopnea Resp Denies cough, Denies dyspnea and Denies dyspnea on exertion GI Denies hematochezia and Denies change in stool character Musc Denies abnormal gait, Reports limited range of motion, Reports muscle cramps, Denies muscle weakness, Denies numbness, Denies radiating pain into limb, Denies stiffness and Denies tingling Neuro Denies abnormal gait, Reports dizziness, Denies numbness and Denies tingling Endo Denies palpitations Physical Exam Vital Signs: Last Vital Signs Pulse 93 08/09/24 13:21 BP 120/80 08/09/24 13:21 BMI result Body Mass Index 37.6 Const General: cooperative, healthy appearing, comfortable and no acute distress Orientation/consciousness: patient oriented x3 HEENT Head: Yes normal to inspection Neck Neck: Yes normal visual inspection, Yes trachea midline and Yes supple Chest Chest palpation & inspection: normal inspection of the chest Resp Effort & Inspection: normal respiratory effort Auscultation: clear to auscultation bilaterally, no crackles, no rales, no rhonchi and no wheezes Cardio Jugular venous distension: no JVD Palpation: normal PMI Rate: regular rate Rhythm: regular rhythm Heart sounds: S1 normal heart sound present, S2 normal heart sound present, no click, no gallops, no murmurs and no rubs Peripheral pulses: Peripheral pulses 2+ throughout GI Inspection: Yes normal to inspection Palpation (GI): Soft to palpation Auscultation: normal bowel sounds Skin General skin exam: no rashes or lesions noted Neuro General: patient oriented x3 Extrem General: Yes normal to inspection, No no pedal edema and No calf tenderness Psych Appearance: grossly normal Mental Status: mental status grossly normal Speech and movement: Normal speech and movement present Office Procedures EKG Details: EKG today shows normal sinus rhythm, rate 93 beats per minute, nonspecific ST-T T-wave, [place], [place]. [id number], Complete Assessment & Plan Assessment & Plan (1) Chest pain: Code(s): R07.9 - Chest pain, unspecified Category: Medical Plan: 07/11/2024 -patient underwent ESTEFANI for the cardioversion that showed normal LV EF between 55-60%, an incidental finding of a small PFO. Given his reports of ongoing chest pain and new AFib, we will pursue a myocardial perfusion study in the near future. Advised patient to seek ER care in case of exertional chest pain not resolved with rest. (2) Atrial fibrillation: Code(s): I48.91 - Unspecified atrial fibrillation Category: Medical Qualifiers: Atrial fibrillation type: persistent (not longstanding) Qualified Code(s): I48.19 - Other persistent atrial fibrillation Plan: Status post ESTEFANI cardioversion with Dr. Hilario on 07/11/2024. Patient had a successful conversion to sinus rhythm. EKG today shows normal sinus rhythm. Holter studies pending. Continue Eliquis therapy for full anticoagulation. No reported signs of bleeding. Continue Multaq 400 mg b.i.d. for rhythm control approach. We will check labs periodically. Given patient's reports of intermittent palpitations and chest pain, with smart watch documenting heart rates in the 120s- could be possible recurrence of AFib. At this time, patient is stable but if the patient has recurrence of symptoms despite medical therapy then patient might benefit from catheter ablation, which was discussed in detail as a potential next step. Patient is understanding of this. Advised tracking his episodes with a smart watch data. (3) Obstructive sleep apnea: Code(s): G47.33 - Obstructive sleep apnea (adult) (pediatric) Category: Medical Plan: Continue BiPAP therapy. Follows with pulmonology. (4) Hospital discharge follow-up: Code(s): Z09 - Encounter for follow-up examination after completed treatment for conditions other than malignant neoplasm Plan: As above. Advised heart healthy diet, regular exercise, medication compliance, and aggressive management of vascular risk factors. Patient states that he has been trying on his diet as well as exercise as he is very active at work however has been hard losing weight. Recommended exploring weight loss management plans with PCP. Orders: Orders NM cardiolite stress test Today R07.9 - Chest pain, unspecified AMB EKG-In Office Today I48.19 - Other persistent atrial fibrillation CA stress test Today R07.9 - Chest pain, unspecified Comprehensive [place]. Panel Fast Today R07.9 - Chest pain, unspecified Coding Level of Care Code Est Pt Level 4 (63140) Complex EM visit Add On G2211 Diagnoses Chest pain R07.9 Persistent atrial fibrillation I48.19 Atrial fibrillation type: persistent (not longstanding) Obstructive sleep apnea G47.33 Hospital discharge follow-up Z09 CPT Codes EKG - CPT: 47332-[id number], Complete ([id number]) Time Spent (min) 32 Comment Time spent in reviewing the chart, test results, assessment, counseling and documentation.
--- OUTSIDE RECORDS SUMMARY | 2024-08-09 14:02 | XMS_ITS | Clinical Summary ---
Author Organization [facility] Address [address] [place] [address] Care Team Providers Care Pleating Machine Operator Name Role Phone Rodríguez Mendiola MD Primary Care Provider Allergies No known active allergies Medications cholecalciferol (VITAMIN D3) 2,000 unit capsule Take 1 capsule by mouth daily. 09/14/2022 Active metoprolol succinate XL (TOPROL XL) 50 mg tablet Take 1 tablet (50 mg total) by mouth once a day. 30 tablet 07/09/2024 Active Active Problems Problem Noted Date Diagnosed Date Foot joint pain 10/30/2013 Ankle sprain 10/04/2013 Metatarsal bone fracture 10/04/2013 Encounters Date Type Department Care Team Description 07/08/2024 7:26 AM EDT - 07/08/2024 10:01 AM EDT Emergency [facility] Emergency Department [address] [place] [id number] Randy Hernandez MD Atrial fibrillation with rapid [...] complete this topic Procedures * Due to [place] state law, this organization might not be [...] to Health Maintenance Results * Due to [place] state law, this organization might not be sharing negative HIV tests. * Troponin T, High Sensitivity X2 (now + 2hrs) (07/08/2024 8:57 AM EDT) Only the most recent of2 resultswithin the time period is included. Troponin T High Sensitivity 8 6 - 22 ng/L 07/08/2024 9:45 AM EDT [facility] Comment: Zn-Owhtatqz-M level of 52 ng/L or higher at [...] be evaluated in line with the 4th [facility] Definition of AMI. Troponin baseline and serial [...] MD LAB BLOOD ORDERABLES Final Res ult [facility] [address] [place] [address], [place] [phone] * XR Chest Portable 1 View (07/08/2024 [...] obtain the completed interpretation. ? Workstation ID: [id number] Narrative 07/08/2024 8:03 AM EDT COMPARISON: Radiograph 03/23/2022 FINDINGS AND Resulting Agency Comment [id number] Procedure Note Brayan Rojas MD - 07/08/2024 COMPARISON: Radiograph 03/23/2022 FINDINGS AND IMPRESSION: No consolidation, pleural effusion, or pneumothorax. Normal heart size.No pulmonary vascular congestion. No acute displaced fracture identified. If this radiology report contains a blank impression section, it is anincomplete radiology report. Please contact the interpreting radiologistor applicable radiology division as soon as possible to obtain thecompleted interpretation. Workstation ID: [id number] us Randy Hernandez MD IMG XR PROCEDURES Final Result * (ABNORMAL) CBC Auto Differential (07/08/2024 7:31 AM EDT) WBC 12.9(H) 4.8 - 10.8 10*3/uL 07/08/2024 7:41 AM EDT [facility] RBC 5.19 4.70 - 6.10 10*6/uL 07/08/2024 7:41 AM EDT [facility] Hemoglobin 15.3 13.7 - 16.5 g/dL 07/08/2024 7:41 AM EDT [facility] Hematocrit 46.8 40.5 - 48.5 % 07/08/2024 7:41 AM EDT [facility] MCV 90.2 80.0 - 94.0 fL 07/08/2024 7:41 AM EDT [facility] MCH 29.5 26.0 - 34.0 pg 07/08/2024 7:41 AM EDT [facility] MCHC 32.7 31.0 - 36.0 g/dL 07/08/2024 7:41 AM EDT [facility] RDW 13.6 12.0 - 15.0 % 07/08/2024 7:41 AM EDT [facility] RDW Standard Deviation 45.1(H) 35.1 - 43.9 fL 07/08/2024 7:41 AM EDT [facility] Platelets 290 140 - 440 10*3/uL 07/08/2024 7:41 AM EDT [facility] MPV 11.3 9.4 - 12.4 fL 07/08/2024 7:41 AM EDT [facility] Neutrophil % 55.5 50.0 - 75.0 % 07/08/2024 7:41 AM EDT [facility] Immature Grans % 0.8 0.0 - 0.9 % 07/08/2024 7:41 AM EDT [facility] Lymphocyte % 31.8 20.0 - 44.0 % 07/08/2024 7:41 AM EDT [facility] Monocyte % 9.4 0.0 - 14.0 % 07/08/2024 7:41 AM EDT [facility] Eosinophil % 1.7 0.0 - 5.0 % 07/08/2024 7:41 AM EDT [facility] Basophil % 0.8 0.0 - 2.0 % 07/[facility] Neutrophil # 7.15 1.80 - 7.70 10*3/uL 07/08/2024 7:41 AM EDT [facility] Immature Grans # 0.10(H) 0.00 - 0.03 10*3/uL 07/08[facility]2024 7[facility] Lymphocyte # 4.10 1.00 - 4.75 10*3/uL 07/08/2024 7[facility] Monocyte # 1.20(H) 0.00 - 0.60 10*3/uL 07/08/2024 7[facility] Eosinophil # 0.20 0.00 - 0.80 10*3/uL 07/08/2024 7:41 [facility] Basophil # 0.10 0.00 - 0.20 10*3/uL 07/08/2024 7:41 AM EDT [facility] nRBC % 0.0 0 - 0 /100 WBCs 07/08/2024 7:41 [facility] nRBC # <0.01 0.00 - 0.13 10*3/uL 07/08/2024 7:41 AM EDT [facility] Blood Structure of peripheral vein / Unknown Venipuncture / Unknown 07/08/2024 7:31 AM EDT 07/08/2024 7:37 AM EDT us Randy Hernandez MD LAB BLOOD ORDERABLES Final Res ult Performing Organization Address [facility] Co de Phone Number [facility] [address] [address], [place] [phone] * D-Dimer, Quantitative (for DVT/PE) (07/08/2024 7:31 AM EDT) D-Dimer, Quantitative 0.14 0.10 - 0.49 mg/L FEU 07/08/2024 8:06 AM EDT [facility] Comment:A D-DIMER VALUE OF < 0.50 ug/FEU/mL HAS A STRONG NEGATIVE PREDICTIVE VALUE FOR EXCLUSION OF PULMONARY EMBOLIC AND DEEP VEIN THROMBOSIS. CLINICAL CORRELATION IS INDICATED. Blood Structure of peripheral vein / Unknown Venipuncture / Unknown 07/08/2024 7:31 AM EDT 07/08/2024 7:37 AM EDT us Randy Hernandez MD LAB BLOOD ORDERABLES Final Res ult Performing Organization Address [facility] Co de Phone Number [facility] [address] [place] [address], [place] [phone] * Magnesium (07/08/2024 7:31 AM EDT) MG 2.0 1.5 - 2.5 mg/dL 07/08/2024 8:06 AM EDT [facility] Blood Structure of peripheral vein / Unknown Venipuncture / Unknown 07/08/2024 7:31 AM EDT 07/08/2024 7:37 AM EDT us Randy Hernandez MD LAB BLOOD ORDERABLES Final Res ult Performing Organization Address City/[facility] Co de Phone Number [facility] [address] [place], [place] [address], [place] [address], [place] [phone] * (ABNORMAL) CMP - Comprehensive Metabolic Panel (07/08/2024 7:31 AM EDT) NA 141 136 - 145 mmol/L 07/08/2024 8:06 AM EDT [facility] K 4.4 3.5 - 5.1 mmol/L 07/08/2024 8:06 AM EDT [facility] Cl 109 98 - 109 mmol/L 07/08/2024 8:06 AM EDT [facility] CO2 22 22 - 32 mmol/L 07/08/2024 8:06 AM EDT [facility] Anion Gap 14 >=0 07/08/2024 8:06 AM EDT [facility] Glucose 124(H) 60 - 99 mg/dL 07/08/2024 8:06 AM EDT [facility] Creatinine 0.85 0.50 - 1.12 mg/dL 07/08/2024 8:06 AM EDT [facility] Calcium 8.5 8.4 - 10.4 mg/dL 07/08/2024 8:06 AM EDT [facility] Total Protein 6.7 6.6 - 8.7 g/dL 07/08/2024 8:06 AM EDT [facility] Albumin 3.9 3.5 - 5.0 g/dL 07/08/2024 8:06 AM EDT [facility] Bilirubin, Total 0.1(L) 0.2 - 1.2 mg/dL 07/08/2024 8:06 AM EDT [facility] Alkaline Phosphatase 101 40 - 129 U/L 07/08/2024 8:06 AM EDT [facility] AST 20 0 - 40 U/L 07/08/2024 8:06 AM EDT [facility] ALT 38 <=41 U/L 07/08/2024 8:06 AM EDT [facility] BUN 12 6 - 20 mg/dL 07/08/2024 8:06 AM EDT [facility] eGFR >90 >=60 mL/min/1. 73m2 07/08/2024 8:06 AM EDT [facility] Comment:The estimated glomer ular filtration [...] - 4.2 g/dL 07/08/2024 8:06 AM EDT [facility] A/G Ratio 1.4(L) 1.5 - 3.0 07/08/2024 8:06 AM EDT [facility] Blood Structure of peripheral vein / Unknown Venipuncture / Unknown 07/08/2024 7:31 AM EDT 07/08/2024 7:37 AM EDT us Randy Hernandez MD LAB BLOOD ORDERABLES Final Res ult [facility] [address] [place] [address] [address] [place] [address], * ECG 12 lead (07/08/2024 7:08 AM EDT) Ventricular Rate EKG 162 BPM MUSE EKG Atrial Rate 250 BPM MUSE EKG IN Interval 132 ms MUSE EKG QRS Interval 88 ms MUSE EKG QT Interval 273 ms MUSE EKG QTC Interval 449 ms MUSE EKG P [place] -23 degrees MUSE EKG R [place] -29 degrees MUSE EKG T Wave [place] 73 degrees MUSE EKG 07/08/2024 7:08 AM [...] RADIOLOGY Patient: DAVY GUILLEN ? Unit #: [id number] Ordering MD: ESHA FERGUSON PA-C ?: 1980 [...] without IV contrast. Liver: ??Allowing for the qoh-jacqfoio-djppkwdk technique, the liver demonstrates homogeneous attenuation without [...] or hydroureter. 3. Mildly fatty liver. POI: [place], [place] ELECTRONICALLY SIGNED BY: ??ANALI HUERTAS MD 08/30/2016 2:12 PM Procedure Note Provider, Historical Conversion - 01/13/2023 DEPARTMENTOF RADIOLOGY Reji t: DAVY GUILLEN Unit #:[id number] Carlos Alberto MD: ESHA FERGUSON PA-C :1980 Procedure: CT Abdomen & Pelvis Age:35 Location: [facility] ExamDate: 08/30/16 Status: REG ERRoom/Bed: Primary MD: Lakhwinder #: [id number] Order:CTABPEL Additional Copy: ESHA FERGUSON PA-C - [...] without IV contrast. Liver: Allowing for the lcu-zfkqtbjj-slbuowje technique, the liverdemonstrates homogeneous attenuation without focal [...] to Health Maintenance Insurance GENERIC on file [facility] [address] WORKERS COMPENSATION Care Teams Pleating Machine Operator Relationship Specialty Start Date End Date Rodríguez Mendiola MD [address] [place] [address] PCP - General Family Medicine 07/08/24
--- OUTSIDE RECORDS SUMMARY | 2024-08-09 14:02 | XMS_ITS | Referral Summary ---
Author Organization [facility] Address [address] [place] [address] Care Team Providers Care Dairy Consultant Name Role Phone Rodríguez Mendiola MD Primary Care Provider [phone] Encounters Date Type Department Care Team Description 07/08/2024 7:26 AM EDT - 07/08/2024 10:01 AM EDT Emergency [facility] Emergency Department [address] [place] [address] Randy Hernandez MD Atrial fibrillation with rapid ventricular response (Primary Dx) Discharge Disposition: Home or Self Care () from Last 3 Months Allergies No known active allergies Medications cholecalciferol [...] Not on file Procedures * Due to [place] EarlyDoc law, this organization might not be sharing [...] to Health Maintenance Results * Due to [place] EarlyDoc law, this organization might not be sharing negative HIV tests. * Troponin T, High Sensitivity X2 (now + 2hrs) (07/08/2024 8:57 AM EDT) Only the most recent of2 resultswithin the time period is included. Troponin T High Sensitivity 8 6 - 22 ng/L 07/08/2024 9:45 AM EDT [facility] Comment: Uz-Mywachdk-V level of 52 ng/L or higher at [...] be evaluated in line with the 4th [facility] Definition of AMI. Troponin baseline and serial [...] MD LAB BLOOD ORDERABLES Final Res ult [facility] [address] [place] [address] [address] [place] [address], * XR Chest Portable 1 View (07/08/2024 [...] obtain the completed interpretation. ? Workstation ID: [id number] Narrative 07/08/2024 8:03 AM EDT COMPARISON: Radiograph 03/23/2022 FINDINGS AND Resulting Agency Comment [id number] Procedure Note Brayan Rojas MD - 07/08/2024 COMPARISON: Radiograph 03/23/2022 FINDINGS AND IMPRESSION: No consolidation, pleural effusion, or pneumothorax. Normal heart size.No pulmonary vascular congestion. No acute displaced fracture identified. If this radiology report contains a blank impression section, it is anincomplete radiology report. Please contact the interpreting radiologistor applicable radiology division as soon as possible to obtain thecompleted interpretation. Workstation ID: [id number] us Randy Hernandez MD IMG XR PROCEDURES Final Result * (ABNORMAL) CBC Auto Differential (07/08/2024 7:31 AM EDT) WBC 12.9(H) 4.8 - 10.8 10*3/uL 07/08/2024 7:41 AM EDT [facility] RBC 5.19 4.70 - 6.10 10*6/uL 07/08/2024 7:41 AM EDT [facility] Hemoglobin 15.3 13.7 - 16.5 g/dL 07/08/2024 7:41 AM EDT [facility] Hematocrit 46.8 40.5 - 48.5 % 07/08/2024 7:41 AM EDT [facility] MCV 90.2 80.0 - 94.0 fL 07/08/2024 7:41 AM EDT [facility] MCH 29.5 26.0 - 34.0 pg 07/08/2024 7:41 AM EDT [facility] MCHC 32.7 31.0 - 36.0 g/dL 07/08/2024 7:41 AM EDT [facility] RDW 13.6 12.0 - 15.0 % 07/08/2024 7:41 AM EDT [facility] RDW Standard Deviation 45.1(H) 35.1 - 43.9 fL 07/08/2024 7:41 AM EDT [facility] Platelets 290 140 - 440 10*3/uL 07/08/2024 7:41 AM EDT [facility] MPV 11.3 9.4 - 12.4 fL 07/08/2024 7:41 AM EDT [facility] Neutrophil % 55.5 50.0 - 75.0 % 07/08/2024 7:41 AM EDT [facility] Immature Grans % 0.8 0.0 - 0.9 % 07/08/2024 7:41 AM EDT [facility] Lymphocyte % 31.8 20.0 - 44.0 % 07/08/2024 7:41 AM EDT [facility] Monocyte % 9.4 0.0 - 14.0 % 07/08/2024 7:41 AM EDT [facility] Eosinophil % 1.7 0.0 - 5.0 % 07/08/2024 7:41 AM EDT [facility] Basophil % 0.8 0.0 - 2.0 % 07/08/2024 7:41 AM EDT [facility] Neutrophil # 7.15 1.80 - 7.70 10*3/uL 07/08/2024 7:41 AM EDT [facility] Immature Grans # 0.10(H) 0.00 - 0.03 10*3/uL 07/08/2024 7:41 AM EDT [facility] Lymphocyte # 4.10 1.00 - 4.75 10*3/uL 07/08/2024 7:41 AM EDT [facility] Monocyte # 1.20(H) 0.00 - 0.60 10*3/uL 07/08/2024 7:41 AM EDT [facility] Eosinophil # 0.20 0.00 - 0.80 10*3/uL 07/08/2024 7:41 AM EDT [facility] Basophil # 0.10 0.00 - 0.20 10*3/uL 07/08/2024 7:41 AM EDT [facility] nRBC % 0.0 0 - 0 /100 WBCs 07/08/2024 7:41 AM EDT [facility] nRBC # <0.01 0.00 - 0.13 10*3/uL 07/08/2024 7:41 AM EDT [facility] Blood Structure of peripheral vein / Unknown Venipuncture / Unknown 07/08/2024 7:31 AM EDT 07/08/2024 7:37 AM EDT us Randy Hernandez MD LAB BLOOD ORDERABLES Final Res ult [facility] [address] [place] [address], [place] [phone] * D-Dimer, Quantitative (for DVT/PE) (07/08/2024 7:31 AM EDT) D-Dimer, Quantitative 0.14 0.10 - 0.49 mg/L FEU 07/08/2024 8:06 AM EDT [facility] Comment:A D-DIMER VALUE OF < 0.50 ug/FEU/mL HAS A STRONG NEGATIVE PREDICTIVE VALUE FOR EXCLUSION OF PULMONARY EMBOLIC AND DEEP VEIN THROMBOSIS. CLINICAL CORRELATION IS INDICATED. Blood Structure of peripheral vein / Unknown Venipuncture / Unknown 07/08/2024 7:31 AM EDT 07/08/2024 7:37 AM EDT us Randy Hernandez MD LAB BLOOD ORDERABLES Final Res ult Performing Organization Address [facility]/ZIP Co de Phone Number [facility] [address] [address], [place] [phone] * Magnesium (07/08/2024 7:31 AM EDT) MG 2.0 1.5 - 2.5 mg/dL 07/08/2024 8:06 AM EDT [facility] Blood Structure of peripheral vein / Unknown Venipuncture / Unknown 07/08/2024 7:31 AM EDT 07/08/2024 7:37 AM EDT Randy Hernandez MD LAB BLOOD ORDERABLES Final Res ult Performing Organization Address [facility] Co de Phone Number [facility] [address] [address], [place] [phone] * (ABNORMAL) CMP - Comprehensive Metabolic Panel (07/08/2024 7:31 AM EDT) NA 141 136 - 145 mmol/L 07/08/2024 8:06 AM EDT [facility] K 4.4 3.5 - 5.1 mmol/L 07/08/2024 8:06 AM EDT [facility] Cl 109 98 - 109 mmol/L 07/08/2024 8:06 AM EDT [facility] CO2 22 22 - 32 mmol/L 07/08/2024 8:06 AM EDT [facility] Anion Gap 14 >=0 07/08/2024 8:06 AM EDT [facility] Glucose 124(H) 60 - 99 mg/dL 07/08/2024 8:06 AM EDT [facility] Creatinine 0.85 0.50 - 1.12 mg/dL 07/08/2024 8:06 AM EDT [facility] Calcium 8.5 8.4 - 10.4 mg/dL 07/08/2024 8:06 AM EDT [facility] Total Protein 6.7 6.6 - 8.7 g/dL 07/08/2024 8:06 AM EDT [facility] Albumin 3.9 3.5 - 5.0 g/dL 07/08/2024 8:06 AM EDT [facility] Bilirubin, Total 0.1(L) 0.2 - 1.2 mg/dL 07/08/2024 8:06 AM EDT [facility] Alkaline Phosphatase 101 40 - 129 U/L 07/08/2024 8:06 AM EDT [facility] AST 20 0 - 40 U/L 07/08/2024 8:06 AM EDT [facility] ALT 38 <=41 U/L 07/08/2024 8:06 AM EDT [facility] BUN 12 6 - 20 mg/dL 07/08/2024 8:06 AM EDT [facility] eGFR >90 >=60 mL/min/1. 73m2 07/08/2024 8:06 AM EDT [facility] Comment:The estimated glomer ular filtration [...] 2.1 - 4.2 g/dL 07/08/2024 8:06 AM T [facility] A/G Ratio 1.4(L) 1.5 - 3.0 07/08/2024 8:06 AM EDT [facility] Blood Structure of peripheral vein / Unknown Venipuncture / Unknown 07/08/2024 7:31 AM EDT 07/08/2024 7:37 AM EDT us Randy Hernandez MD LAB BLOOD ORDERABLES Final Res ult Performing Organization Address City/[facility]/ZIP Co de Phone Number [facility] [address] [place] [address] [address] [place] [address], * ECG 12 lead (07/08/2024 7:08 AM EDT) Ventricular Rate EKG 162 BPM MUSE EKG Atrial Rate 250 BPM MUSE EKG [place] Interval 132 ms MUSE EKG QRS Interval 88 ms MUSE EKG QT Interval 273 ms MUSE EKG QTC Interval 449 ms MUSE EKG P [place] -23 degrees MUSE EKG R [place] -29 degrees MUSE EKG T Wave [place] 73 degrees MUSE EKG 07/08/2024 7:08 AM EDT 07/08/2024 8:47 AM EDT Impressions MUSE EKG - 07/08/2024 8:47 AM EDT Atrial fibrillation Borderline left axis deviation Abnormal R-wave progression, early transition Confirmed by Marcin Valle ([id number]) on 07/08/2024 8:47:43 AM Randy Hernandez MD ECG ORDERABLES Final Result Performing Organization Address [facility] Co de Phone Number MUSE EKG * CT Abdomen Pelvis without Contrast (08/30/2016 12:24 PM EDT) Anatomical Region Laterality Modality Body Computed Tomogra phy 08/30/2016 1:54 PM EDT Narrative 08/30/2016 2:14 PM EDT ? DEPARTMENT OF RADIOLOGY Patient: DAVY GUILLEN ? Unit #: [id number] Ordering MD: ESHA FERGUSON PA-C ?: 1980 [...] without IV contrast. Liver: ??Allowing for the hze-vyhgcbil-krvyaxxp technique, the liver demonstrates homogeneous attenuation without [...] or hydroureter. 3. Mildly fatty liver. POI: [place] ELECTRONICALLY SIGNED BY: ??ANALI HUERTAS MD 08/30/2016 2:12 PM Procedure Note Provider, Historical Conversion - 01/13/2023 DEPARTMENTOF RADIOLOGY Reji t: DAVY GUILLEN Unit #:[id number] Ordering MD: ESHA FERGUSON PA-C :1980 Procedure: CT Abdomen & Pelvis Age:35 Location: [facility] ExamDate: 08/30/16 Status: REG ERRoom/Bed: Primary MD: PatientAcct #: [id number] Order:CTABPEL Additional Copy: ESAH FERGUSON PA-C - INDICATION: Right back and [...] without IV contrast. Liver: Allowing for the cbt-yfvgdiar-hvwfrlyb technique, the liverdemonstrates homogeneous attenuation without focal [...] or hydroureter. 3. Mildly fatty liver. POI: [place] ELECTRONICALLY SIGNED BY: ANALI HUERTAS MD 08/30/2016 2:12 [address] PROCEDURES Final Result from Last 3 Months or Most Recently Relevant to Health Maintenance Insurance GENERIC on file [facility] MEDICAID WORKERS COMPENSATION Care Teams Dairy Consultant Relationship Specialty Start Date End Date Rodríguez Mendiola MD [address] [place] [id number] PCP - General Family Medicine 07/08/24
== END 2024-08-09 13:53 | disposition home or self-care (01) ==
LOC: HO.HCS 13:18
PROVIDERS: PCP Nurse Practitioner Family
DX: R07.9 Chest pain, unspecified (principal); I48.19 Other persistent atrial fibrillation; G47.33 Obstructive sleep apnea (adult) (pediatric); Z09 Encounter for follow-up examination after completed treatment for conditions other than malignant neoplasm
CPT/HCPCS: 93010; 99214; G2211

== ENCOUNTER → 2024-08-09 13:17 | Outpatient (BNVA) | payer OTHER, SELFPAY | PROVIDERS: PCP Nurse Practitioner Family | DX: I48.19 Other persistent atrial fibrillation (principal); G47.33 Obstructive sleep apnea (adult) (pediatric); E66.9 Obesity, unspecified; R07.9 Chest pain, unspecified; Z09 Encounter for follow-up examination after completed treatment for conditions other than malignant neoplasm; Z87.891 Personal history of nicotine dependence; Z99.89 Dependence on other enabling machines and devices | CPT/HCPCS: 93005; 99212 ==

== ENCOUNTER → 2024-10-01 07:52 | Outpatient (REF) | payer BC, SELFPAY ==
--- NOTE | ~2024-10-01 | NM_ITS ---
Lexiscan Myocardial perfusion study Indication: Chest pain Technique: The patient was brought in for a Lexiscan perfusion study on 10/01/2024 and was injected 0.4 mg of Lexiscan intravenously. Within a minute of this injection 45 mCi of sestamibi was given intravenously. Images were obtained using the SPECT gamma camera interlaced with the gating device. Images were obtained in supine position. Resting perfusion study was performed on 10/07/2024. Patient was administered 45 mCi of sestamibi intravenously at rest. Images were then obtained in supine position. Total DLP 150 mGy-cm. Images were processed with the software and compared side to side in short axis, horizontal long axis and vertical long axis views. Findings: Raw aquisition reviewed. The stress perfusion study showed decreased tracer uptake along the inferior wall. There is improvement with CT attenuation correction suggestive of diaphragmatic attenuation artifact. The gated study shows normal LV systolic function with calculated LVEF of 56%. LV cavity is normal in size. The gated study shows normal wall thickening and contraction of segments. Resting study shows diminished tracer uptake along the inferior wall. There is improvement with CT attenuation correction suggestive of diaphragmatic attenuation artifact. Gating at rest reveals normal wall motion with ejection fraction at 61%. The findings are consistent with no clear reversible or fixed perfusion abnormality. MS/MS cardiolite stress test Impression: 1. Myocardial perfusion imaging study shows normal myocardial perfusion. 2. Gated LVEF is 56% during stress and 61% during rest. 3. Transient ischemic dilatation not present. EKG component of the test reported separately. Electronically signed by: Marciano Youngblood MD 10/08/2024 03:00 PM EDT
--- OUTSIDE RECORDS SUMMARY | 2024-10-01 07:54 | XMS_ITS | Clinical Summary ---
Author Organization [facility] Address [address] [place] [address] Care Team Providers Care Marriage And Family Counselor Name Role Phone Rodríguez Mendiola MD Primary Care Provider [phone] Allergies No known active allergies Medications cholecalciferol [...] EDT - 07/08/2024 10:01 AM EDT Emergency [facility] Emergency Department [address] [place] [id number] Randy Hernandez MD Atrial fibrillation with rapid [...] complete this topic Procedures * Due to [place] state law, this organization might not be [...] to Health Maintenance Results * Due to [place] state law, this organization might not be sharing negative HIV tests. * Troponin T, High Sensitivity X2 (now + 2hrs) (07/08/2024 8:57 AM EDT) Only the most recent of2 resultswithin the time period is included. Troponin T High Sensitivity 8 6 - 22 ng/L 07/08/2024 9:45 AM EDT [facility] Comment: Cb-Meotgyap-H level of 52 ng/L or higher at [...] be evaluated in line with the 4th [place] Definition of AMI. Troponin baseline and serial [...] MD LAB BLOOD ORDERABLES Final Res ult [facility] [address] [place] [address], [place] [phone] * XR Chest Portable 1 View (07/08/2024 [...] obtain the completed interpretation. ? Workstation ID: [id number] Narrative 07/08/2024 8:03 AM EDT COMPARISON: Radiograph 03/23/2022 FINDINGS AND Resulting Agency Comment [id number] Procedure Note Brayan Rojas MD - 07/08/2024 COMPARISON: Radiograph 03/23/2022 FINDINGS AND IMPRESSION: No consolidation, pleural effusion, or pneumothorax. Normal heart size.No pulmonary vascular congestion. No acute displaced fracture identified. If this radiology report contains a blank impression section, it is anincomplete radiology report. Please contact the interpreting radiologistor applicable radiology division as soon as possible to obtain thecompleted interpretation. Workstation ID: [id number] us Randy Hernandez MD IMG XR PROCEDURES Final Result * (ABNORMAL) CBC Auto Differential (07/08/2024 7:31 AM EDT) WBC 12.9(H) 4.8 - 10.8 10*3/uL 07/08/2024 7:41 AM EDT [facility] RBC 5.19 4.70 - 6.10 10*6/uL 07/08/2024 7:41 AM EDT [facility] Hemoglobin 15.3 13.7 - 16.5 g/dL 07/08/2024 7:41 AM EDT [facility] Hematocrit 46.8 40.5 - 48.5 % 07/08/2024 7:41 AM EDT [facility] MCV 90.2 80.0 - 94.0 fL 07/08/2024 7:41 AM EDT [facility] MCH 29.5 26.0 - 34.0 pg 07/08/2024 7:41 AM EDT [facility] MCHC 32.7 31.0 - 36.0 g/dL 07/08/2024 7:41 AM EDT [facility] RDW 13.6 12.0 - 15.0 % 07/08/2024 7:41 AM EDT [facility] RDW Standard Deviation 45.1(H) 35.1 - 43.9 fL 07/08/2024 7:41 AM EDT [facility] Platelets 290 140 - 440 10*3/uL 07/08/2024 7:41 AM EDT [facility] MPV 11.3 9.4 - 12.4 fL 07/08/2024 7:41 AM EDT [facility] Neutrophil % 55.5 50.0 - 75.0 % 07/08/2024 7:41 AM EDT [facility] Immature Grans % 0.8 0.0 - 0.9 % 07/08/2024 7:41 AM EDT [facility] Lymphocyte % 31.8 20.0 - 44.0 % 07/08/2024 7:41 AM EDT [facility] Monocyte % 9.4 0.0 - 14.0 % 07/08/2024 7:41 AM EDT [facility] Eosinophil % 1.7 0.0 - 5.0 % 07/08/2024 7:41 AM EDT [facility] Basophil % 0.8 0.0 - 2.0 % 07[facility] Neutrophil # 7.15 1.80 - 7.70 10*3/uL 07/08/2024 7:41 AM EDT [facility] Immature Grans # 0.10(H) 0.00 - 0.03 10*3/uL 07/08[facility]2024 7[facility] Lymphocyte # 4.10 1.00 - 4.75 10*3/uL 07/[facility]2024 [facility] Monocyte # 1.20(H) 0.00 - 0.60 10*3/uL 07/08/2024 7[facility] Eosinophil # 0.20 0.00 - 0.80 10*3/uL 07/08/2024 [facility] Basophil # 0.10 0.00 - 0.20 10*3/uL 07/08/2024 7:41 AM EDT [facility] nRBC % 0.0 0 - 0 /100 WBCs 07/08/2024 7[facility] nRBC # <0.01 0.00 - 0.13 10*3/uL 07/08/2024 7:41 AM EDT [facility] Blood Structure of peripheral vein / Unknown Venipuncture / Unknown 07/08/2024 7:31 AM EDT 07/08/2024 7:37 AM EDT us Randy Hernandez MD LAB BLOOD ORDERABLES Final Res ult Performing Organization Address [facility] Co de Phone Number [facility] [address] [address], [place] [phone] * D-Dimer, Quantitative (for DVT/PE) (07/08/2024 7:31 AM EDT) D-Dimer, Quantitative 0.14 0.10 - 0.49 mg/L FEU 07/08/2024 8:06 AM EDT [facility] Comment:A D-DIMER VALUE OF < 0.50 ug/FEU/mL HAS A STRONG NEGATIVE PREDICTIVE VALUE FOR EXCLUSION OF PULMONARY EMBOLIC AND DEEP VEIN THROMBOSIS. CLINICAL CORRELATION IS INDICATED. Blood Structure of peripheral vein / Unknown Venipuncture / Unknown 07/08/2024 7:31 AM EDT 07/08/2024 7:37 AM EDT us Randy Hernandez MD LAB BLOOD ORDERABLES Final Res ult Performing Organization Address [facility] Co de Phone Number [facility] [address] [place] [address], [place] [phone] * Magnesium (07/08/2024 7:31 AM EDT) MG 2.0 1.5 - 2.5 mg/dL 07/08/2024 8:06 AM EDT [facility] Blood Structure of peripheral vein / Unknown Venipuncture / Unknown 07/08/2024 7:31 AM EDT 07/08/2024 7:37 AM EDT us Randy Hernandez MD LAB BLOOD ORDERABLES Final Res ult Performing Organization Address [facility] Co de Phone Number [facility] [address] [place], [place] [address], [place] [address], [place] [phone] * (ABNORMAL) CMP - Comprehensive Metabolic Panel (07/08/2024 7:31 AM EDT) NA 141 136 - 145 mmol/L 07/08/2024 8:06 AM EDT [facility] K 4.4 3.5 - 5.1 mmol/L 07/08/2024 8:06 AM EDT [facility] Cl 109 98 - 109 mmol/L 07/08/2024 8:06 AM EDT [facility] CO2 22 22 - 32 mmol/L 07/08/2024 8:06 AM EDT [facility] Anion Gap 14 >=0 07/08/2024 8:06 AM EDT [facility] Glucose 124(H) 60 - 99 mg/dL 07/08/2024 8:06 AM EDT [facility] Creatinine 0.85 0.50 - 1.12 mg/dL 07/08/2024 8:06 AM EDT [facility] Calcium 8.5 8.4 - 10.4 mg/dL 07/08/2024 8:06 AM EDT [facility] Total Protein 6.7 6.6 - 8.7 g/dL 07/08/2024 8:06 AM EDT [facility] Albumin 3.9 3.5 - 5.0 g/dL 07/08/2024 8:06 AM EDT [facility] Bilirubin, Total 0.1(L) 0.2 - 1.2 mg/dL 07/08/2024 8:06 AM EDT [facility] Alkaline Phosphatase 101 40 - 129 U/L 07/08/2024 8:06 AM EDT [facility] AST 20 0 - 40 U/L 07/08/2024 8:06 AM EDT [facility] ALT 38 <=41 U/L 07/08/2024 8:06 AM EDT [facility] BUN 12 6 - 20 mg/dL 07/08/2024 8:06 AM EDT [facility] eGFR >90 >=60 mL/min/1. 73m2 07/08/2024 8:06 AM EDT [facility] Comment:The estimated glomer ular filtration rate [...] - 4.2 g/dL 07/08/2024 8:06 AM EDT [facility] A/G Ratio 1.4(L) 1.5 - 3.0 07/08/2024 8:06 AM EDT [facility] Blood Structure of peripheral vein / Unknown Venipuncture / Unknown 07/08/2024 7:31 AM EDT 07/08/2024 7:37 AM EDT us Randy Hernandez MD LAB BLOOD ORDERABLES Final Res ult [facility] [address] [place] [address] [address] [place] [address], * ECG 12 lead (07/08/2024 7:08 AM EDT) Ventricular Rate EKG 162 BPM MUSE EKG Atrial Rate 250 BPM MUSE EKG SC Interval 132 ms MUSE EKG QRS Interval 88 ms MUSE EKG QT Interval 273 ms MUSE EKG QTC Interval 449 ms MUSE EKG P [place] -23 degrees MUSE EKG R [place] -29 degrees MUSE EKG T Wave [place] 73 degrees MUSE EKG 07/08/2024 7:08 AM [...] RADIOLOGY Patient: DAVY GUILLEN ? Unit #: [id number] Ordering MD: ESHA FERGUSON PA-C ?: 1980 [...] without IV contrast. Liver: ??Allowing for the frb-ypaxaeae-ujhxgolf technique, the liver demonstrates homogeneous attenuation without [...] or hydroureter. 3. Mildly fatty liver. POI: [place], [place] ELECTRONICALLY SIGNED BY: ??ANALI HUERTAS MD 08/30/2016 2:12 PM Procedure Note Provider, Historical Conversion - 01/13/2023 DEPARTMENTOF RADIOLOGY Reji t: DAVY GUILLEN Unit #:[id number] Carlos Alberto MD: ESHA FERGUSON PA-C :1980 Procedure: CT Abdomen & Pelvis Age:35 Location: [facility] ExamDate: 08/30/16 Status: REG ERRoom/Bed: Primary MD: Lakhwinder #: [id number] Order:CTABPEL Additional Copy: ESHA FERGUSON PA-C - [...] without IV contrast. Liver: Allowing for the zzt-qclhfrfm-gfgizwkx technique, the liverdemonstrates homogeneous attenuation without focal [...] to Health Maintenance Insurance GENERIC on file [facility] [employer] WORKERS COMPENSATION Care Teams Marriage And Family Counselor Relationship Specialty Start Date End Date Rodríguez Mendiola MD [address] [place] [address] PCP - General Family Medicine 07/08/24
--- NOTE | 2024-10-01 08:09 | CA_ITS ---
Acquisition Time: 2024-10-01 08:27:02 Total Exercise Time: 00:07:35 Test Indications: cp Medications: see h&p Protocol: MAGGIE Max HR: 134 BPM 75% of Pred: 178 BPM Max BP: 158/88 mmHG Max Work Load: 9.4 METS Exercise stress test with exercise 7 mins 35 secs of Maggie Protocol, achieving 75% MPHR, requesting to stop due to legs getting tired, no chest pain, no EKG changes at achieved workload. Test switched to Lexiscan. Pharmacological stress test with Lexiscan, with reports of headache, dizziness and SOB, without any arrythmias, with normotensive response to injection. Nondiagnostic EKG for ischemia. In recovery, pt treated with IVP Aminophylline 75 mg to reverse Lexiscan after which pt feeling back to baseline. Nuclear images pending. Test reviewed with Dr. Decker. Referred By: Ilir Ortiz Electronically Signed By: Ilir Ortiz
== END ==
LOC: HO.CARD 07:52
PROVIDERS: PCP Nurse Practitioner Family
DX: R07.9 Chest pain, unspecified (principal)
CPT/HCPCS: 78452; 93017; A9500; J0280; J2785

== ENCOUNTER → 2024-10-01 08:09 | Outpatient (BNV) | payer BC, SELFPAY | PROVIDERS: PCP Nurse Practitioner Family | DX: R06.02 Shortness of breath (principal) | CPT/HCPCS: 78452; 93016; 93018 ==

== ENCOUNTER 2024-12-04 14:58 | Outpatient (AMB) | payer BC, SELFPAY ==
--- NOTE | 2024-12-04 15:24 | MHC.OFFVIS ---
Vital Signs 12/04/24 15:25 Height 6 ft 9 in Weight 315 lb 4.176 oz BMI 33.8 BP 122/66 Blood Pressure Location Lt brachial Position Sitting Pulse 96 Pulse Source Monitor Intake Visit Reasons: 3 mth fu after mibi Allergies No Known Allergies Allergy (Verified 08/09/24 13:23) Medication List - Last Reconciled 12/04/24 by Ilir Ortiz NP apixaban (Eliquis) 5 mg PO BID cholecalciferol (vitamin D3) 50 mcg PO DAILY cyclobenzaprine 10 mg PO BEDTIME PRN dronedarone (Multaq) 400 mg PO BID omeprazole 20 mg PO BEDTIME HPI Comments Details: This is a 44-year-old male patient coming in for a follow-up visit. Patient with a history of paroxysmal AFib, sleep apnea on BiPAP therapy, and obesity. Patient states that now he has completely quit smoking cigarettes however he has taken up smoking marijuana occasionally. Previously, patient underwent ESTEFANI cardioversion with Dr. Hilario on 07/11/2024. At his last visit, patient reported intermittent chest discomfort which is random in nature and subsequently underwent a myocardial perfusion study. Today, patient continues to report intermittent chest pain however patient notes that has made changes to his lifestyle by staying more active and has lost about 40 lb. Patient is otherwise denying any associated symptoms of exertional shortness of breath, palpitations, dizziness, orthopnea, PND, leg edema, presyncope or syncope. Patient is reporting compliance with all his medications. [facility] Medical History Atrial fibrillation Complex sleep apnea syndrome Marijuana dependence Kidney stones Encounter to establish care Surgical History History of esophagogastroduodenoscopy (EGD) History of appendectomy H/O shoulder surgery Family History Mother Hypertension CHF (congestive heart failure) Father Stroke Social History Household Members: Spouse and Children Housing: House Are you a primary rn acute care to a significant other at home: No Do you presently have visiting nurse or other home services: No Alcohol intake: never Patient Tobacco Use Status: Former Tobacco user Tobacco use type: Cigarette Cigarette Packs Per Day: 0.5 Cigarettes Per Day: 10.0 Years Smoked: 25 e-Cigarette/Vaping Use: Never Used Second Hand Smoke Exposure: Yes Substance Use Type: Marijuana service: Yes Current occupational status: employed Current occupation: [employer] Current occupational exposures/hazards: Yes Cognitive needs: No Hearing needs: No Vision needs: No Review of Systems Const Denies weakness ENT Denies dizziness Card Denies chest pain, Denies chest pain with activity, Denies syncope, Denies rapid heart rate, Denies pedal edema, Denies edema, Denies leg edema, Denies lightheadedness, Reports palpitations, Denies dyspnea, Denies dyspnea on exertion and Denies orthopnea Resp Denies cough, Denies dyspnea and Denies dyspnea on exertion GI Denies hematochezia and Denies change in stool character Musc Denies abnormal gait, Denies muscle cramps, Denies muscle weakness, Denies numbness, Denies radiating pain into limb and Denies tingling Neuro Denies abnormal gait, Denies dizziness, Denies syncope, Denies numbness, Denies tingling and Denies weakness Endo Reports palpitations Physical Exam Vital Signs: Last Vital Signs Pulse 96 12/04/24 15:25 BP 122/66 12/04/24 15:25 BMI result Body Mass Index 33.8 Const General: cooperative, healthy appearing, comfortable and no acute distress Orientation/consciousness: patient oriented x3 HEENT Head: Yes normal to inspection Neck Neck: Yes normal visual inspection, Yes trachea midline and Yes supple Chest Chest palpation & inspection: normal inspection of the chest Resp Effort & Inspection: normal respiratory effort Auscultation: clear to auscultation bilaterally, no crackles, no rales, no rhonchi and no wheezes Cardio Jugular venous distension: no JVD Palpation: normal PMI Rate: regular rate Rhythm: regular rhythm Heart sounds: S1 normal heart sound present, S2 normal heart sound present, no click, no gallops, no murmurs and no rubs Peripheral pulses: Peripheral pulses 2+ throughout GI Inspection: Yes normal to inspection Palpation (GI): Soft to palpation Auscultation: normal bowel sounds Skin General skin exam: no rashes or lesions noted Neuro General: patient oriented x3 Extrem General: Yes normal to inspection, No no pedal edema and No calf tenderness Psych Appearance: grossly normal Mental Status: mental status grossly normal Speech and movement: Normal speech and movement present Office Procedures EKG Details: EKG today showed normal sinus rhythm, rate 96 beats per minute, [place], [place] [id number], Complete Assessment & Plan Assessment & Plan (1) Chest pain: Code(s): R07.9 - Chest pain, unspecified Category: Medical Plan: 10/01/2024-patient underwent myocardial perfusion study with the pharmacologic agent which showed normal perfusion. Ongoing symptoms of intermittent chest pain. Given his multiple risk factors, recommended coronary CTA or calcium score however, patient would like to wait another 6 months to see if it improves. Advised to seek ER care in case of exertional chest pain not resolved with rest. (2) Atrial fibrillation: Code(s): I48.91 - Unspecified atrial fibrillation Category: Medical Qualifiers: Atrial fibrillation type: persistent (not longstanding) Qualified Code(s): I48.19 - Other persistent atrial fibrillation Plan: History of AFib status post ESTEFANI cardioversion with Dr. Hilario on 07/01/2024. EKG today is normal sinus rhythm. 08/02/2024-Holter study showed a baseline normal sinus rhythm with an average heart rate of 80 beats per minute with pauses happening during sleep hours and rare PACs and PVCs. Patient is compliant with his BiPAP therapy. Continue Eliquis for full anticoagulation therapy. Denies any signs of bleeding. Continue Multaq for rhythm control. Recommended to complete his lab work to check kidney function. (3) Obstructive sleep apnea: Code(s): G47.33 - Obstructive sleep apnea (adult) (pediatric) Category: Medical Plan: Continue BiPAP therapy. Followed by pulmonology. (4) Obesity (BMI 30.0-34.9): Code(s): E66.9 - Obesity, unspecified Category: Medical Plan: Patient has lost about 40 lbs with lifestyle modifications. Patient was commended for this and encouraged to continue losing weight and staying active. Advised heart healthy diet, regular exercise, med compliance, smoking cessation, and management of vascular risk factors. Follow up in 6 months. In the interim, patient will call the office with any concerns or change in symptoms. This note was generated using voice recognition software. While every effort has been made to ensure accuracy and proper adjunct business instructor, there may be occasional errors that could affect the content or meaning of the described symptoms. Orders: Orders AMB EKG-In Office Today I48.19 - Other persistent atrial fibrillation Coding Level of Care Code Est Pt Level 4 (52028) Complex EM visit Add On G2211 Diagnoses Chest pain R07.9 Persistent atrial fibrillation I48.19 Atrial fibrillation type: persistent (not longstanding) Obstructive sleep apnea G47.33 Obesity (BMI 30.0-34.9) E66.9 CPT Codes EKG - CPT: 11626-[id number], Complete ([id number]) Time Spent (min) 31 Comment Time spent in reviewing the chart, test results, assessment, counseling and documentation.
[2024-12-04 15:25] VITALS: BP 122/66; PULSE 96; BMI 33.8
--- OUTSIDE RECORDS SUMMARY | 2024-12-04 15:54 | XMS_ITS | Clinical Summary ---
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 09/14/2022 Active metoprolol succinate XL (TOPROL XL) 50 mg tablet Take 1 tablet (50 mg total) by mouth once a day. 30 tablet 07/09/2024 Active Active Problems Problem Noted Date Diagnosed Date Foot joint pain 10/30/2013 Ankle sprain 10/04/2013 Metatarsal bone fracture 10/04/2013 Family History Medical History Relation Name Comments [...] 115 07/08/2024 8:57 AM EDT Temperature 37.1 C (98.7 F) 07/08/2024 7:17 AM EDT Respiratory Rate 20 07/08/2024 8:57 AM EDT [...] of Health Annual Screening 04/17/2024 Influenza Vaccine (#1) 2024 RSV Vaccine (60+ years old and patients) (1 - 1-dose 75+ series) 2057 Abdominal Aortic Aneurysm (AAA) Screening Completed 08/30/2016 Pneumococcal Vaccine: Pediatric (0-5 Years) and At-Risk Patients (6-50 Years) Aged Out No longer eligible based on patient's age to complete this topic Procedures * Due to [place] [employer] law, this organization might not be sharing negative HIV tests. Procedure Name Priority Date/Time Associated Diagnosis Comments CT ABDOMEN PELVIS WO CONTRAST Routine 08/30/2016 12:24 PM EDT from Last 3 Months or Most Recently Relevant to Health Maintenance Results * Due to [place] [employer] law, this organization might not be sharing negative HIV tests. * CT Abdomen Pelvis without Contrast (08/30/2016 12:24 PM EDT) Anatomical Region Laterality Modality Body Computed Tomogra phy 08/30/2016 1:54 PM EDT Narrative 08/30/2016 2:14 PM EDT DEPARTMENT OF RADIOLOGY Patient: DAVY GUILLEN Unit #: [id number] Ordering MD: ESHA FERGUSON PA-C : 1980 Procedure: CT Abdomen & Pelvis Age: 35 Location: [facility] Exam Date: 08/30/16 Status: [facility] ER Room/Bed: Primary MD: Patient Order: [id number] Additional Copy: ESHA FERGUSON PA-C - INDICATION: Right back and flank pain. TECHNIQUE: Axial multidetector CT images were obtained through the abdomen and pelvis without intravenous contrast. Reformatted coronal and sagittal images were submitted to PACS and reviewed. DOSE: DLP: 876 mGy-cm COMPARISON: None. FINDINGS: Visualized lung bases are clear. Visualized portions of the heart and pericardium are unremarkable. Assessment of the solid visceral structures of the abdomen and pelvis is limited without IV contrast. Liver: Allowing for the uhj-ahznzwak-yyksnbis technique, the liver demonstrates homogeneous attenuation without focal lesion. Liver has a mildly low-attenuation, consistent with hepatic steatosis. There is no intra or extrahepatic biliary ductal dilation. Gallbladder: The gallbladder has a thin wall without radiopaque stones. Pancreas: The pancreas demonstrates normal bulk without ductal dilation. Spleen: The spleen does not appear enlarged. Adrenal Glands: The right and left adrenal glands are thin and have no discrete nodularity. Kidneys: The right and left kidneys demonstrate homogeneous appearance [...] or evidence of hydronephrosis or hydroureter. Bowel: There is no abnormal small bowel dilation. The large bowel loops appear grossly within normal limits. Appendix is not [...] this was placed approximately 3 years ago. Proximal pigtail is next to the right UPJ. No associated hydronephrosis or hydroureter. 3. Mildly fatty liver. POI: [place] ELECTRONICALLY SIGNED BY: ANALI HUERTAS MD 08/30/2016 2:12 PM Procedure Note Provider, Historical Conversion - 01/13/2023 DEPARTMENTOF RADIOLOGY Reji t: DAVY GUILLEN Unit #:[id number] Ordering MD: ESHA FERGUSON PA-C :1980 Procedure: CT Abdomen & Pelvis Age:35 Location: [facility] ExamDate: 08/30/16 Status: REG ERRoom/Bed: Primary MD: PatientAcct #: [id number] Order:[id number] Additional Copy: FERGUSON, ESHA PA-C - INDICATION: Right back and flank [...] without IV contrast. Liver: Allowing for the sgu-mdysgekz-nzofvcux technique, the liverdemonstrates homogeneous attenuation without focal [...] or hydroureter. 3. Mildly fatty liver. POI: [place] ELECTRONICALLY SIGNED BY: ANALI HUERTAS MD 08/30/2016 2:12 PM Esha HOUGH IMG CT PROCEDURES Final Result from Last 3 Months or Most Recently Relevant to Health Maintenance Insurance GENERIC on file [employer] Care Teams Food Cooking Machine Operator Relationship Specialty Start Date End Date Rodríguez Mendiola MD [address] [place] [id number] PCP - General Family Medicine 07/08/24
== END 2024-12-04 15:48 | disposition home or self-care (01) ==
LOC: HO.HCS 14:59
PROVIDERS: PCP Nurse Practitioner Family
DX: R07.9 Chest pain, unspecified (principal); I48.19 Other persistent atrial fibrillation; G47.33 Obstructive sleep apnea (adult) (pediatric); E66.9 Obesity, unspecified
CPT/HCPCS: 93010; 99214

== ENCOUNTER → 2024-12-04 14:58 | Outpatient (BNVA) | payer BC, SELFPAY | PROVIDERS: PCP Nurse Practitioner Family | DX: I48.19 Other persistent atrial fibrillation (principal); R07.9 Chest pain, unspecified; G47.33 Obstructive sleep apnea (adult) (pediatric); E66.9 Obesity, unspecified; F12.20 Cannabis dependence, uncomplicated; Z68.33 Body mass index [BMI] 33.0-33.9, adult; Z76.89 Persons encountering health services in other specified circumstances | CPT/HCPCS: 93005 ==